=== PATIENT | female | born 1945 | race Caucasian/White ===

== ENCOUNTER 2016-12-02 12:54 | Observation (INO) | payer MEDICARE ==
[2016-12-02] MEDS ORDERED: Nitrostat 0.4 MG (ED) SL ONE ×2 (13:13→13:15)
[2016-12-02] MEDS ORDERED: BABY ASPIRIN 81 MG CHEW PO ONE (13:13)
[2016-12-02] MEDS ORDERED: BABY ASPIRIN 81 MG CHEW ONE (13:15)
--- NOTE | 2016-12-02 13:15 | ERPHSYRPT ---
- History of Present Illness Time Seen by Provider: 12/02/16 12:59 Historian: patient, family Exam Limitations: no limitations Physician History: Awakened with substernal CP, heaviness, burning, localized pain at 1A. States has bile taste with vomiting episodes X 3 along with epigastric discomfort. Patient also with cough, dizziness and headache. Patient denies any palpitation or any recent URI symptoms. Patient states that initial chest discomfort was a 7 out of 10 and is a 5 out of 10 presently. Patient complains of extreme weakness and being tired yesterday. Patient did stay up from 1 AM total 7 AM, before sleeping for approximately . Patient is also states that she 's previous indigestion along with cardiac workup 10-12 years ago that was normal. Timing/Duration: hour(s) (12), constant Activities at Onset: rest Quality: burning, pressure Location: substernal Chest Pain Radiation: no radiation Severity of Pain-Max: moderate Severity of Pain-Current: mild Modifying Factors: Improves With: antacids (improve) Associated Symptoms: nausea, vomiting, heartburn, shortness of breath, No palpitations Nitro Today/Relief: no nitro taken today Aspirin Treatment Today: no aspirin today Allergies/Adverse Reactions: No Known Drug Allergies Allergy (Unverified 01/10/14 14:27) Home Medications: Alprazolam 0.5 mg [xanAX 0.5 MG] 0.5 mg PO BIDPRN PRN 01/10/14 [History] Amlodipine Besylate 10 mg [Norvasc 10 MG] 10 mg PO DAILY 01/10/14 [History] Metoprolol Succinate 100 mg [Toprol Xl 100 MG] 100 mg PO DAILY 01/10/14 [ History] Omeprazole 40 mg PO DAILY 01/10/14 [History] Venlafaxine HCl ER 75 mg [Effexor XR 75 MG] 75 mg PO DAILY 01/10/14 [ History] Loratadine 10 mg [Claritin 10 mg] 10 mg PO DAILY 07/16/14 [History] Aspirin 81 mg PO DAILY 12/02/16 [History] Cranberry Extract [Cranberry] 200 mg PO DAILY 12/02/16 [History] Hx Tetanus, Diphtheria Vaccination/Date Given: Yes (2001?) Hx Influenza Vaccination/Date Given: Yes (2011) Hx Pneumococcal Vaccination/Date Given: Yes (2012) - Review of Systems Constitutional: Weakness, No Fever, No Chills Eyes: No Symptoms Ears, Nose, & Throat: No Symptoms Respiratory: Cough, Dyspnea, No Stridor, No Wheezing (history of overdoses that 7 this 5 year since 5 this is 53) Cardiac: Chest Pain, No Edema, No Palpitations, No Syncope, No Orthopnea Abdominal/Gastrointestinal: Nausea, Vomiting (review), No Abdominal Pain, No Diarrhea, No Constipation, No Hematemesis, No Hematochezia Genitourinary Symptoms: No Dysuria, No Frequency, No Hematuria Musculoskeletal: Arthralgias, No Neck Pain Skin: No Symptoms, No Rash Neurological: No Dizziness, No Focal Weakness, No Sensory Changes Psychological: No Symptoms Endocrine: No Symptoms Hematologic/Lymphatic: No Symptoms Immunological/Allergic: No Symptoms All Other Systems: Reviewed and Negative - Past Medical History Pertinent Past Medical History: Yes Neurological History: No Pertinent History ENT History: Cataracts Cardiac History: Hypertension Respiratory History: No Pertinent History Endocrine Medical History: No Pertinent History Musculoskeletal History: Arthritis GI Medical History: No Pertinent History, GERD History: No Pertinent History Psycho-Social History: Anxiety, Depression, Panic Disorder Female Reproductive Disorders: No Pertinent History Other Medical History: C-Diff - Past Surgical History Past Surgical History: Yes Neuro Surgical History: No Pertinent History Cardiac: No Pertinent History Respiratory: No Pertinent History Gastrointestinal: No Pertinent History Genitourinary: No Pertinent History Musculoskeletal: Orthopedic Surgery Female Surgical History: Section, Hysterectomy Other Surgical History: cataract surgery. knee replacement. back surgery; rotator cuff - Social History Smoking Status: Former smoker Exposure to second hand smoke: No Drug Use: none Patient Lives Alone: Yes - Female History Hx Now: No - Nursing Vital Signs Temperature: 98.5 F Temperature Source: Oral Pulse Rate: 72 Respiratory Rate: 18 Blood Pressure: 158/89 Pain Intensity: 7 - Physical Exam General Appearance: mild distress Eye Exam: PERRL/EOMI, eyes nml inspection Ears, Nose, Throat Exam: normal ENT inspection, moist mucous membranes Neck Exam: normal inspection, non-tender, supple, full range of motion Respiratory Exam: normal breath sounds, lungs clear, No respiratory distress Cardiovascular Exam: regular rate/rhythm, normal heart sounds Gastrointestinal/Abdomen Exam: soft, tenderness (mild to epigastric area), No mass, No rebound, No hernia Pelvic Exam: not done Back Exam: normal inspection, No CVA tenderness, No vertebral tenderness Extremity Exam: normal inspection, normal range of motion, No parasthesia, No pedal edema, No swelling Neurologic Exam: alert, oriented x 3, cooperative, normal mood/affect, sensation nml, No motor deficits Skin Exam: normal color, warm, dry SpO2: 92 Oxygen Delivery: Room Air - Course Nursing assessment & vital signs reviewed: Yes EKG Interpreted by Me: RATE (70), Sinus Rhythm, NORMAL AXIS, NORMAL INTERVALS, NORMAL QRS Ordered Tests: Active Orders 24 hr Category Date Time Status Power Washer STAT Care 12/02/16 13:06 Active Power Washer STAT Care 12/02/16 13:16 Active EKG-ER Only STAT Care 12/02/16 12:59 Active EKG-ER Only STAT Care 12/02/16 13:16 Active IV Insertion STAT Care 12/02/16 12:59 Active IV Insertion STAT Care 12/02/16 13:16 Active Oxygen-ED Only NASAL CANNULA 2 lpm Care 12/02/16 13:04 Active CHEST 1 VIEW (PORTABLE) Stat Exams 12/02/16 13:16 Taken BMP Stat Lab 12/02/16 13:00 Completed CBC W DIFF Stat Lab 12/02/16 13:00 Completed TROPONIN Q3H Lab 12/02/16 13:00 Completed TROPONIN Q3H Lab 12/02/16 16:30 Ordered TROPONIN Q3H Lab 12/02/16 19:30 Ordered TROPONIN Q3H Lab 12/02/16 22:30 Ordered TROPONIN Q3H Lab 12/03/16 01:30 Ordered Medication Summary Discontinued Medications Generic Name Dose Route Start Last Admin Trade Name Freq PRN Reason Stop Dose Admin Aspirin 324 mg 12/02/16 13:13 12/02/16 13:26 Baby Aspirin 81 Mg Chew PO 12/02/16 13:14 324 mg STAT ONE Administration Aspirin Confirm 12/02/16 13:15 Baby Aspirin 81 Mg Chew Administered 12/02/16 13:16 Dose 324 mg .ROUTE .STK-MED ONE Famotidine 20 mg 12/02/16 13:57 12/02/16 14:06 Pepcid 20 Mg Vial IV 12/02/16 13:58 20 mg STAT ONE Administration Famotidine Confirm 12/02/16 13:59 Pepcid 20 Mg Vial Administered 12/02/16 14:00 Dose 20 mg IV .STK-MED ONE Nitroglycerin 0.4 mg 12/02/16 13:13 12/02/16 13:26 Nitrostat 0.4 Mg (Ed) SL 12/02/16 13:14 0.4 mg STAT ONE Administration Nitroglycerin Confirm 12/02/16 13:15 Nitrostat 0.4 Mg (Ed) Administered 12/02/16 13:16 Dose 0.4 mg SL .STK-MED ONE Lab/Rad Data: Laboratory Result Diagrams 12/02/16 13:00 12/02/16 13:00 Laboratory Results 12/02/16 12/02/16 12/02/16 Range/Units 13:00 13:00 13:00 WBC 11.4 H (4.0-10.5) K/mm3 RBC 4.17 (4.1-5.4) M/mm3 Hgb 11.9 L (12.0-16.0) gm/dl Hct 36.2 (35-47) % MCV 86.8 (78-100) fl MCH 28.5 (26-32) pg MCHC 32.9 (32-36) g/dl RDW 14.7 H (11.5-14.0) % Plt Count 287 (150-450) K/mm3 MPV 10.4 H (6-9.5) fl Gran % 81.0 H (36.0-66.0) % Lymphocytes % 11.4 L (24.0-44.0) % Monocytes % 6.1 (0.0-12.0) % Eosinophils % 1.4 (0.00-5.0) % Basophils % 0.1 (0.0-0.4) % Basophils # 0.01 (0-0.4) Sodium 134 L (136-145) mEq/L Potassium 3.9 (3.5-5.1) mEq/L Chloride 96 L (98-107) mEq/L Carbon Dioxide 25.1 (21-32) mEq/L Anion Gap 16.7 H (5-15) MEQ/L BUN 16 (9-20) mg/dL Creatinine 1.09 (0.55-1.30) mg/dl Estimated GFR 53 ML/MIN Glucose 142 H (70-110) MG/DL Calcium 9.1 (8.5-10.1) mg/dL Troponin I < 0.017 (0.000-0.056) ng/ml - Progress Progress: improved Air Movement: good Progress Note: 12/02/16 14:58 patient feels much better after aspirin, nitroglycerin and Pepcid. Patient hemodynamically stable throughout ED stay. Dr. Oconnor was notified and agrees to admit patient for further evaluation. Discussed with : Melvin Will see patient in: hospital (observation) Counseled pt/family regarding: lab results, diagnosis (Y), rad results - Departure Time of Disposition: 15:00 Departure Disposition: Observation Clinical Impression: Chest pain Condition: Stable Critical Care Time: No
[2016-12-02 13:28] LABS: BASOPHIL % 0.1 % (0.0-0.4); Eosinophil % 1.4 % (0.00-5.0); Lymphocytes % 11.4 % (24.0-44.0); Mean Cell Volume 86.8 fl (78-100); Mean Corpuscular Hemoglobin 28.5 pg (26-32); Mean Platelet Volume 10.4 fl (6-9.5); Monocytes % 6.1 % (0.0-12.0); Platelet Count 287 K/mm3 (150-450); Red Blood Count 4.17 M/mm3 (4.1-5.4); Red Cell Distribution Width 14.7 % (11.5-14.0); White Blood Count 11.4 K/mm3 (4.0-10.5)
[2016-12-02 13:45] LABS: ANION GAP 16.7 MEQ/L (5-15); Carbon Dioxide 25.1 mEq/L (21-32); Potassium 3.9 mEq/L (3.5-5.1)
[2016-12-02] MEDS ORDERED: Pepcid 20 MG VIAL IV ONE ×2 (13:57→13:59)
[2016-12-02] MEDS ORDERED: MILK OF MAGNESIA 30 ML PO PRN (15:26)
[2016-12-02] MEDS ORDERED: TYLENOL 325 MG PO PRN (15:26)
[2016-12-02] MEDS ORDERED: MAALOX ES 30 ML UNIT DOSE PO PRN (15:26)
[2016-12-02] MEDS ORDERED: Senokot-S Tablet PO PRN (15:26)
[2016-12-02] MEDS ORDERED: Sodium Chloride 0.9% 500 ML 500 ML IV SCH (15:26)
[2016-12-02] MEDS ORDERED: Zofran 4 MG/2 ML VIAL IV PRN (15:26)
[2016-12-02] MEDS: Sodium Chloride 0.9% 1000 ML 1,000 ML IV SCH (15:54)
--- NOTE | 2016-12-02 18:20 | XRAY ---
Indication: Chest pain. Comparison: April 08, 2015 Portable chest less inflated today again with calcified granulomas. No focal infiltrate, consolidation, or large effusion. Heart is not enlarged for AP portable technique. Descending aorta remains tortuous. Bony thorax intact again with mild osteopenia and degenerative changes. Impression: Nonacute underinflated chest with chronic features. Comment: Preliminary interpretation was made by [facility]. No discrepancy.
--- NOTE | 2016-12-02 20:52 | PCM.HP ---
History of Present Illness - Chief Complaint Chief Complaint: chest pain Date: 12/02/16 History of Present Illness: is a 71 year old female. Who was feeling a little tired yesterday but otherwise herself. She went to bed and woke up in the early am hours vomiting nonbloody emesis. She had repeated episodes of this and developed substernal chest pain and burning like someone pouring hot water down her chest pain. No associated shortness of breath but then started having copious secretions and coughing with these and felt congested with this. This is improving now that she has stopped vomiting she still has the burning pressure in her chest in the substernal area as well as some sharp pains no sob. SHe ate fish last night that she is concerned may have went bad she bought them at the local grocery store and prepared them herself. She has no diarrhea. SHe has history of ibs with constipation and diarrhea chronically and has had colonoscopies. She has aslo hx of heartburn which she takes Prilosec for. - Review of Systems Constitutional: Fatigue, No Fever, No Chills Eyes: No Eye Pain, No Eye Redness, No Itchy Ears, Nose, & Throat: Painful Swallowing, No Ear Pain, No Ear Discharge, No Hearing Changes, No Nose Congestion, No Mouth Swelling Respiratory: Cough, No Orthopnea, No Short Of Breath Cardiac: Chest Pain, No Edema, No Palpitations, No Syncope, No Orthopnea Abdominal/Gastrointestinal: Abdominal Pain, Nausea, Vomiting, No Diarrhea, No Constipation, No Hematemesis, No Hematochezia, No Melena Genitourinary Symptoms: No Dysuria, No Frequency, No Hematuria Musculoskeletal: No Arthralgias, No Back Pain, No Neck Pain, No Joint Redness, No Joint Pain Skin: No Cellulitis, No Decubiti Neurological: Headache, No Dizziness, No Focal Weakness, No Gait Changes Hematologic/Lymphatic: No Blood Clots, No Easy Bleeding, No Easy Bruising Medications & Allergies Home Medications: Home Medication List Alprazolam 0.5 mg [xanAX 0.5 MG] 0.5 mg PO BID 01/10/14 [History Confirmed 12/02/16] Amlodipine Besylate 10 mg [Norvasc 10 MG] 10 mg PO DAILY 01/10/14 [History Confirmed 12/02/16] Metoprolol Succinate 100 mg [Toprol Xl 100 MG] 100 mg PO DAILY 01/10/14 [ History Confirmed 12/02/16] Omeprazole 40 mg PO DAILY 01/10/14 [History Confirmed 12/02/16] Venlafaxine HCl ER 75 mg [Effexor XR 75 MG] 75 mg PO DAILY 01/10/14 [ History Confirmed 12/02/16] Loratadine 10 mg [Claritin 10 mg] 10 mg PO DAILY 07/16/14 [History Confirmed 12/02/16] Aspirin 81 mg PO DAILY 12/02/16 [History Confirmed 12/02/16] Cranberry Extract [Cranberry] 200 mg PO DAILY 12/02/16 [History Confirmed ] Allergies/Adverse Reactions: Allergies Allergy/AdvReac Type Severity Reaction Status Date / Time No Known Drug Allergies Allergy Unverified 01/10/14 14:27 - Past Medical History Past Medical History: Yes Neurological History: No Pertinent History ENT History: Cataracts Cardiac History: Hypertension Respiratory History: No Pertinent History Endocrine Medical History: No Pertinent History Musculoskelatal History: Arthritis GI Medical History: No Pertinent History, GERD History: No Pertinent History Pyscho-Social History: Anxiety, Depression, Panic Disorder Reproductive Disorders: No Pertinent History Comment: C-Diff - Female History Are you now?: No - Past Surgical History Past Surgical History: Yes Neuro Surgical History: No Pertinent History Cardiac History: No Pertinent History Respiratory Surgery: No Pertinent History GI Surgical History: No Pertinent History Genitourinary Surgical Hx: No Pertinent History Musculskeletal Surgical Hx: Orthopedic Surgery Female Surgical History: Section, Hysterectomy Other Surgical History: cataract surgery. knee replacement. back surgery; rotator cuff - Social History Smoking Status: Former smoker Exposure to second hand smoke: No Alcohol: None Drug Use: none - Physical Exam Vital Signs: Vital Signs - 24 hr Temp Pulse Pulse Resp BP BP Pulse Ox 12/02/16 20:00 92 L 12/02/16 19:48 98.6 F 75 18 130/72 92 L 12/02/16 15:31 98.1 F 72 18 179/86 94 L 12/02/16 15:00 98.5 F 72 18 158/89 92 L 12/02/16 14:47 70 18 138/70 12/02/16 13:38 72 18 132/73 95 12/02/16 13:24 68 12/02/16 13:12 68 18 140/64 95 12/02/16 13:01 98.5 F 72 18 158/89 92 L Oxygen-Last 24 hours O2 Percentage 2 Liters = 28% O2 Percentage 2 Liters = 28% O2 Percentage 2 Liters = 28% O2 Percentage 2 Liters = 28% General Appearance: no apparent distress Neurologic Exam: alert, oriented x 3, cooperative Eye Exam: PERRL/EOMI, No scleral icterus, No pale conjunctivae Ears, Nose, Throat Exam: dry mucous membranes Neck Exam: normal inspection, non-tender, supple Respiratory Exam: normal breath sounds, chest tenderness (left parasternal most severe reproducing the pain), lungs clear, No respiratory distress, No diminished breath sounds, No crackles/rales Cardiovascular Exam: regular rate/rhythm, normal heart sounds, No murmur Gastrointestinal/Abdomen Exam: soft, normal bowel sounds, tenderness (epigastric ) Extremity Exam: normal inspection, No calf tenderness, No pedal edema Skin Exam: normal color, warm, dry, No rash Results - Labs Lab/Micro Results: Lab Results-Last 24 Hours 12/02/16 12/02/16 Range/Units 16:46 19:38 Troponin I < 0.017 < 0.017 (0.000-0.056) ng/ml - Other Procedures and Tests Respiratory Therapy 12/02/16 21:00 EKG ONCE 12/03/16 05:00 EKG ONCE 12/04/16 05:00 EKG ONCE Assessment/Plan (1) Chest pain Current Visit: Yes Status: Acute Assessment & Plan: 7 hour after arrival troponin remains undetectable and she is still having the atypical chest pain no changes on the ekg. Pain is reproducible with palpation of chest will give dose of steroids as well as some carafate for the burning with swallowing already received iv pepcid will give dose of protonix. She is now tolerating po. Appears noncardiac chest pain likely secondary to gastritis possibly viral vs food born. Continue monitor overnight fluids, Check lipase and hepatic functions as well. Code(s): R07.9 - CHEST PAIN, UNSPECIFIED (2) GERD (gastroesophageal reflux disease) Current Visit: Yes Status: Chronic Code(s): K21.9 - GASTRO-ESOPHAGEAL REFLUX DISEASE WITHOUT ESOPHAGITIS (3) Essential hypertension Current Visit: Yes Status: Chronic Code(s): I10 - ESSENTIAL (PRIMARY) HYPERTENSION (4) Anxiety Current Visit: Yes Status: Chronic Code(s): F41.9 - ANXIETY DISORDER, UNSPECIFIED (5) IBS (irritable bowel syndrome) Current Visit: Yes Status: Chronic
[2016-12-02] MEDS ORDERED: PROTONIX 40 MG IV IV ONE (20:54)
[2016-12-02] MEDS ORDERED: NORCO 5/325 MG PO PRN (20:55)
[2016-12-02] MEDS ORDERED: solu-MEDROL 125 MG IV ONE (20:56)
[2016-12-02] MEDS ORDERED: Phenergan 25 MG INJ IV PRN (20:59)
[2016-12-02] MEDS: xanAX 0.5 MG PO SCH (21:29)
[2016-12-02] MEDS: Carafate SUSPENSION 1000 MG/10 ML PO SCH (21:41)
[2016-12-03 05:34] LABS: Mean Cell Volume 87.2 fl (78-100); Mean Corpuscular Hemoglobin 27.9 pg (26-32); Mean Platelet Volume 10.1 fl (6-9.5); Platelet Count 250 K/mm3 (150-450); Red Cell Distribution Width 14.7 % (11.5-14.0)
[2016-12-03 05:55] LABS: ALBUMIN 3.5 g/dL (3.4-5.0); ALKALINE PHOSPHATASE 93 U/L (46-116); ANION GAP 13.6 MEQ/L (5-15); BILIRUBIN,TOTAL 0.2 mg/dL (0.2-1.0); BLOOD UREA NITROGEN 15 mg/dL (9-20); CHLORIDE 105 mEq/L (98-107); Carbon Dioxide 27.7 mEq/L (21-32); Cholesterol 244 mg/dL (100-200); Glucose 157 MG/DL (70-110); LDL, DIRECT 166 mg/dL (5-99); LIPASE 107 U/L (73-393); Potassium 4.1 mEq/L (3.5-5.1); SGOT/AST 14 U/L (15-37); SGPT/ALT 16 U/L (12-78); SODIUM 142 mEq/L (136-145); TRIGLYCERIDE 80 mg/dL (30-200); Total Protein 6.9 gm/dL (6.4-8.2)
[2016-12-03] MEDS: Sodium Chloride 0.9% 1000 ML 1,000 ML IV SCH (06:01)
[2016-12-03] MEDS: Carafate SUSPENSION 1000 MG/10 ML PO SCH (07:44)
[2016-12-03 07:47] VITALS: BP 128/69; PULSE 89; O2SAT 91
[2016-12-03] MEDS: xanAX 0.5 MG PO SCH (09:18)
--- NOTE | 2016-12-03 09:18 | PCM.DS ---
Discharge Summary Date of Admission: 12/02/16 15:15 Date of Discharge: 12/03/16 Admitting Physician: JAMIE SOLER Primary Care Provider: QUIQUE FOSS Allergies Allergies No Known Drug Allergies Allergy (Unverified 01/10/14 14:27) Hospital Summary - Hospital Course Hospital Course: she awoke the day of admission with vomiting and then developed substernal pain and burning with nausea. She subsequently developed coughing and mucous drainage as well. No fevers. She was seen in ED with the chest pain and placed in observation for chest pain rule out. Her vomiting was treated and improved. Her chest pain was reproducible with palpation of the left costal junction. She had epigastric burning treated with ppi, h2 jose guadalupe and carafate. There was no bleeding or melena. Her troponins remained negative and normal EKG. She did develop some coughing but no shortness of breath. She was feeling a little better now with cough and stated it felt like she was getting a cold now. She was given a dose of steroid with some mild bilateral expiratory wheezing. Her wbc actually dropped with this consistent with viral infection. She was discharged with chest pain precautions and presumed symptoms due to viral illness. - Vitals & Intake/Output Vital Signs: Vital Signs Temperature 97.9 F 12/03/16 07:46 Pulse Rate 89 12/03/16 07:46 Respiratory Rate 18 12/03/16 07:46 Blood Pressure 128/69 12/03/16 07:46 O2 Sat by Pulse Oximetry 91 L 12/03/16 07:46 Oxygen-Last Documented O2 Percentage 2 Liters = 28% Intake & Output: Intake & Output 11/30/16 12/01/16 12/02/16 12/03/16 11:59 11:59 11:59 11:59 Intake Total 2371 Output Total 200 Balance 2171 Weight 76.067 kg - Lab Result Diagrams: 12/03/16 05:10 12/03/16 05:10 Lab Results-Last 24 Hrs: Lab Results-Last 24 Hours 12/02/16 12/02/16 12/03/16 Range/Units 16:46 19:38 05:10 WBC 4.0 (4.0-10.5) K/mm3 RBC 4.30 (4.1-5.4) M/mm3 Hgb 12.0 (12.0-16.0) gm/dl Hct 37.5 (35-47) % MCV 87.2 (78-100) fl MCH 27.9 (26-32) pg MCHC 32.0 (32-36) g/dl RDW 14.7 H (11.5-14.0) % Plt Count 250 (150-450) K/mm3 MPV 10.1 H (6-9.5) fl Sodium (136-145) mEq/L Potassium (3.5-5.1) mEq/L Chloride (98-107) mEq/L Carbon Dioxide (21-32) mEq/L Anion Gap (5-15) MEQ/L BUN (9-20) mg/dL Creatinine (0.55-1.30) mg/dl Estimated GFR ML/MIN Glucose (70-110) MG/DL Calcium (8.5-10.1) mg/dL Total Bilirubin (0.2-1.0) mg/dL AST (15-37) U/L ALT (12-78) U/L Alkaline Phosphatase (46-116) U/L Troponin I < 0.017 < 0.017 (0.000-0.056) ng/ml Serum Total Protein (6.4-8.2) gm/dL Albumin (3.4-5.0) g/dL Triglycerides (30-200) mg/dL Cholesterol (100-200) mg/dL LDL Cholesterol (5-99) mg/dL HDL Cholesterol (35-60) mg/dL Heart Disease Risk Ratio Lipase (73-393) U/L 12/03/16 Range/Units 05:10 WBC (4.0-10.5) K/mm3 RBC (4.1-5.4) M/mm3 Hgb (12.0-16.0) gm/dl Hct (35-47) % MCV (78-100) fl MCH (26-32) pg MCHC (32-36) g/dl RDW (11.5-14.0) % Plt Count (150-450) K/mm3 MPV (6-9.5) fl Sodium 142 (136-145) mEq/L Potassium 4.1 (3.5-5.1) mEq/L Chloride 105 (98-107) mEq/L Carbon Dioxide 27.7 (21-32) mEq/L Anion Gap 13.6 (5-15) MEQ/L BUN 15 (9-20) mg/dL Creatinine 0.92 (0.55-1.30) mg/dl Estimated GFR > 60 ML/MIN Glucose 157 H (70-110) MG/DL Calcium 8.8 (8.5-10.1) mg/dL Total Bilirubin 0.2 (0.2-1.0) mg/dL AST 14 L (15-37) U/L ALT 16 (12-78) U/L Alkaline Phosphatase 93 (46-116) U/L Troponin I (0.000-0.056) ng/ml Serum Total Protein 6.9 (6.4-8.2) gm/dL Albumin 3.5 (3.4-5.0) g/dL Triglycerides 80 (30-200) mg/dL Cholesterol 244 H (100-200) mg/dL LDL Cholesterol 166 H (5-99) mg/dL HDL Cholesterol 63 H (35-60) mg/dL Heart Disease Risk Ratio 3.9 Lipase 107 (73-393) U/L - Procedures and Test Procedures and Tests throughout Hospitalization: Therapy Orders & Screens 12/02/16 21:00 EKG ONCE Comment: 12/02/16 22:16 Oxygen NASAL CANNULA 2 lpm Comment: PER CHEST PAIN PATHWAY Diagnosis: chest pain 12/03/16 05:00 EKG ONCE Comment: 12/04/16 05:00 EKG ONCE Comment: Discharge Exam General Appearance: no apparent distress Neurologic Exam: alert, oriented x 3, cooperative Skin Exam: warm, dry Eye Exam: PERRL, No scleral icterus, No pale conjunctivae Ears, Nose, Throat Exam: moist mucous membranes Neck Exam: normal inspection, non-tender, supple Respiratory Exam: wheezing (mild diffuse expiratory), No crackles/rales Cardiovascular Exam: regular rate/rhythm, normal heart sounds, normal peripheral pulses, No murmur, No edema Gastrointestinal/Abdomen Exam: soft, normal bowel sounds, No tenderness, No distention, No mass, No guarding Extremity Exam: No calf tenderness, No sandra's sign, No pedal edema Final Diagnosis/Problem List - Final Discharge Diagnosis/Problem (1) Chest pain Status: Acute (2) GERD (gastroesophageal reflux disease) Status: Chronic (3) Essential hypertension Status: Chronic (4) Anxiety Status: Chronic (5) IBS (irritable bowel syndrome) Status: Chronic (6) Bronchitis Status: Acute (7) Costochondritis Status: Acute - Discharge Disposition: Home, Self-Care Condition: Stable Prescriptions: Prednisone 10 mg [Deltasone 10 mg] 10 mg PO DAILY #22 tablet Medications: Home Medications Alprazolam 0.5 mg [xanAX 0.5 MG] 0.5 mg PO BID 01/10/14 [Confirmed ] Amlodipine Besylate 10 mg [Norvasc 10 MG] 10 mg PO DAILY 01/10/14 [Confirmed ] Metoprolol Succinate 100 mg [Toprol Xl 100 MG] 100 mg PO DAILY 01/10/14 [ Confirmed 12/02/16] Omeprazole 40 mg PO DAILY 01/10/14 [Confirmed 12/02/16] Venlafaxine HCl ER 75 mg [Effexor XR 75 MG] 75 mg PO DAILY 01/10/14 [ Confirmed 12/02/16] Loratadine 10 mg [Claritin 10 mg] 10 mg PO DAILY 07/16/14 [Confirmed 12/02] Aspirin 81 mg PO DAILY 12/02/16 [Confirmed 12/02/16] Cranberry Extract [Cranberry] 200 mg PO DAILY 12/02/16 [Confirmed 12/02/16] Prednisone 10 mg [Deltasone 10 mg] 10 mg PO DAILY #22 tablet 12/03/16 Active Inpatient Medications Acetaminophen (Tylenol 325 Mg) 650 mg PO Q4H PRN PRN PRN Reason: PAIN AND/OR FEVER Stop: 01/01/17 15:25 Last Admin: 12/02/16 15:54 Dose: 650 mg Acetaminophen/Hydrocodone Bitart (Orange 5/325 Mg) 1 tab PO QID PRN PRN PRN Reason: PAIN Stop: 12/07/16 20:54 Al Hydrox/Mg Hydrox/Simethicone (Maalox Es 30 Ml Unit Dose) 30 ml PO Q4H PRN PRN PRN Reason: INDIGESTION Stop: 01/01/17 15:25 Alprazolam (Xanax 0.5 Mg) 0.5 mg PO BID LENNIE Stop: 01/01/17 21:59 Last Admin: 12/02/16 21:29 Dose: 0.5 mg Amlodipine Besylate (Norvasc 5 Mg) 10 mg PO DAILY [facility] Stop: 01/02/17 09:59 Aspirin (Ecotrin 81 Mg) 81 mg PO DAILY [facility] Stop: 01/02/17 09:59 Sodium Chloride (Sodium Chloride 0.9% 1000 Ml) 1,000 mls @ 65 mls/hr IV .[id number] [facility] Stop: 01/01/17 15:44 Last Admin: 12/03/16 06:01 Dose: 65 mls/hr Loratadine (Claritin 10 Mg) 10 mg PO DAILY [facility] Stop: 01/02/17 09:59 Magnesium Hydroxide (Milk Of Magnesia 30 Ml) 30 - 60 ml PO QDP PRN PRN Reason: CONSTIPATION Stop: 01/01/17 15:25 Metoprolol Succinate (Toprol Xl 100 Mg) 100 mg PO DAILY [facility] Stop: 01/02/17 09:59 Pantoprazole Sodium (Protonix 40mg Tablet) 40 mg PO DAILY [facility] Stop: 01/02/17 09:59 Promethazine HCl (Phenergan 25 Mg Inj) 12.5 mg IV Q4H PRN PRN PRN Reason: NAUSEA/VOMITING Stop: 01/01/17 20:58 Senna/Docusate Sodium (Senokot-S Tablet) 2 udtab PO BID PRN PRN PRN Reason: CONSTIPATION Stop: 01/01/17 15:25 Sucralfate (Carafate Suspension 1000 Mg/10 Ml) 1,000 mg PO ACHS [facility] Stop: 01/01/17 21:59 Last Admin: 12/03/16 07:44 Dose: 1,000 mg Venlafaxine HCl (Effexor Xr 75 Mg) 75 mg PO DAILY [facility] Stop: 01/02/17 09:59 Instructions: Gastroesophageal Reflux Disease (GERD), Atypical Chest Pain, GERD Diet Follow up with: QUIQUE FOSS [Primary Care Provider] - Call for Appointment Forms: Discharge Instructions, Patient Portal Information
--- NOTE | 2016-12-03 09:18 | PCM.DCORD ---
- Discharge Discharge Date: 12/03/16 Disposition: Home, Self-Care Condition: Stable Prescriptions: Prednisone 10 mg [Deltasone 10 mg] 10 mg PO DAILY #22 tablet Medications: Home Medications Alprazolam 0.5 mg [xanAX 0.5 MG] 0.5 mg PO BID 01/10/14 [Confirmed ] Amlodipine Besylate 10 mg [Norvasc 10 MG] 10 mg PO DAILY 01/10/14 [Confirmed ] Metoprolol Succinate 100 mg [Toprol Xl 100 MG] 100 mg PO DAILY 01/10/14 [ Confirmed 12/02/16] Omeprazole 40 mg PO DAILY 01/10/14 [Confirmed 12/02/16] Venlafaxine HCl ER 75 mg [Effexor XR 75 MG] 75 mg PO DAILY 01/10/14 [ Confirmed 12/02/16] Loratadine 10 mg [Claritin 10 mg] 10 mg PO DAILY 07/16/14 [Confirmed 12/02] Aspirin 81 mg PO DAILY 12/02/16 [Confirmed 12/02/16] Cranberry Extract [Cranberry] 200 mg PO DAILY 12/02/16 [Confirmed 12/02/16] Active Inpatient Medications Acetaminophen (Tylenol 325 Mg) 650 mg PO Q4H PRN PRN PRN Reason: PAIN AND/OR FEVER Stop: 01/01/17 15:25 Last Admin: 12/02/16 15:54 Dose: 650 mg Acetaminophen/Hydrocodone Bitart (Jackson 5/325 Mg) 1 tab PO QID PRN PRN PRN Reason: PAIN Stop: 12/07/16 20:54 Al Hydrox/Mg Hydrox/Simethicone (Maalox Es 30 Ml Unit Dose) 30 ml PO Q4H PRN PRN PRN Reason: INDIGESTION Stop: 01/01/17 15:25 Alprazolam (Xanax 0.5 Mg) 0.5 mg PO BID LENNIE Stop: 01/01/17 21:59 Last Admin: 12/02/16 21:29 Dose: 0.5 mg Amlodipine Besylate (Norvasc 5 Mg) 10 mg PO DAILY LENNIE Stop: 01/02/17 09:59 Aspirin (Ecotrin 81 Mg) 81 mg PO DAILY [facility] Stop: 01/02/17 09:59 Sodium Chloride (Sodium Chloride 0.9% 1000 Ml) 1,000 mls @ 65 mls/hr IV .[id number] [facility] Stop: 01/01/17 15:44 Last Admin: 12/03/16 06:01 Dose: 65 mls/hr Loratadine (Claritin 10 Mg) 10 mg PO DAILY [facility] Stop: 01/02/17 09:59 Magnesium Hydroxide (Milk Of Magnesia 30 Ml) 30 - 60 ml PO QDP PRN PRN Reason: CONSTIPATION Stop: 01/01/17 15:25 Metoprolol Succinate (Toprol Xl 100 Mg) 100 mg PO DAILY [facility] Stop: 01/02/17 09:59 Pantoprazole Sodium (Protonix 40mg Tablet) 40 mg PO DAILY [facility] Stop: 01/02/17 09:59 Promethazine HCl (Phenergan 25 Mg Inj) 12.5 mg IV Q4H PRN PRN PRN Reason: NAUSEA/VOMITING Stop: 01/01/17 20:58 Senna/Docusate Sodium (Senokot-S Tablet) 2 udtab PO BID PRN PRN PRN Reason: CONSTIPATION Stop: 01/01/17 15:25 Sucralfate (Carafate Suspension 1000 Mg/10 Ml) 1,000 mg PO ACHS [facility] Stop: 01/01/17 21:59 Last Admin: 12/03/16 07:44 Dose: 1,000 mg Venlafaxine HCl (Effexor Xr 75 Mg) 75 mg PO DAILY [facility] Stop: 01/02/17 09:59 Follow up with: QUIQUE FOSS [Primary Care Provider] - Forms: Patient Portal Information
[2016-12-03] MEDS ORDERED: NON-FORMULARY ITEM (Aspirin [Aspirin] 81 MG) PO SCH (10:00)
[2016-12-03] MEDS ORDERED: Protonix 40MG Tablet PO SCH (10:00)
[2016-12-03] MEDS ORDERED: Effexor XR 75 MG PO SCH (10:00)
[2016-12-03] MEDS ORDERED: NORVASC 5 MG PO SCH (10:00)
[2016-12-03] MEDS ORDERED: NON-FORMULARY ITEM (Amlodipine Besylate 10 Mg [Norvasc 10 Mg] 10 MG) PO SCH (10:00)
[2016-12-03] MEDS ORDERED: CLARITIN 10 MG PO SCH (10:00)
[2016-12-03] MEDS ORDERED: NON-FORMULARY ITEM (Omeprazole [Omeprazole] 40 MG) PO SCH (10:00)
[2016-12-03] MEDS ORDERED: ECOTRIN 81 MG PO SCH (10:00)
[2016-12-03] MEDS ORDERED: Ecotrin 325 MG PO SCH (10:00)
[2016-12-03] MEDS ORDERED: Toprol Xl 100 MG PO SCH (10:00)
== END 2016-12-03 11:00 | disposition home or self-care (01) ==
LOC: ED 12:54 → MED SURG 15:15
PROVIDERS: ADMIT Family Medicine; ATTEND Family Medicine
DX: R07.89 Other chest pain (principal); K21.9 Gastro-esophageal reflux disease without esophagitis; I10 Essential (primary) hypertension; F41.9 Anxiety disorder, unspecified; K58.9 Irritable bowel syndrome, unspecified; J40 Bronchitis, not specified as acute or chronic; M94.0 Chondrocostal junction syndrome [Tietze]; M19.90 Unspecified osteoarthritis, unspecified site; F41.8 Other specified anxiety disorders; Z79.899 Other long term (current) drug therapy
CPT/HCPCS: 36000; 36415; 71010; 80048; 80053; 80061; 83690; 83721; 84484; 85025; 85027; 87400; 93005; 93041; 93268; 94760; 96374; 99285; G0378; J2930

== ENCOUNTER 2017-03-20 12:16 | Inpatient (IN) | payer MEDICARE ==
[2017-03-20 13:02] LABS: Mean Corpuscular Hemoglobin 28.4 pg (26-32); Mean Platelet Volume 9.2 fl (6-9.5); Platelet Count 295 K/mm3 (150-450); Red Blood Count 4.23 M/mm3 (4.1-5.4); Red Cell Distribution Width 15.5 % (11.5-14.0); White Blood Count 8.1 K/mm3 (4.0-10.5)
[2017-03-20] MEDS ORDERED: Sodium Chloride 0.9% 10 ML FLUSH Syringe IV PRN (13:09)
[2017-03-20 13:29] LABS: ALBUMIN 3.4 g/dL (3.4-5.0); ANION GAP 13.6 MEQ/L (5-15); BILIRUBIN,TOTAL 0.3 mg/dL (0.2-1.0); Carbon Dioxide 26.8 mEq/L (21-32); Potassium 3.9 mEq/L (3.5-5.1); Total Protein 7.1 gm/dL (6.4-8.2)
--- NOTE | 2017-03-20 13:37 | XRAY ---
Indication: Pneumonia. Comparison: March 19, 2017. PA/lateral chest unchanged again with subtle right middle lobe infiltrate/atelectasis, calcified granulomas, and right hemidiaphragm focal eventration. Heart is not enlarged. No new cardiopulmonary abnormalities.
[2017-03-20 13:39] LABS: ANISOCYTOSIS 1+; Eosinophil 2 % (0.00-3.0); Platelet Estimate NORMAL (NORMAL); Total Cells Counted 100
[2017-03-20 13:40] LABS: Polychromasia 1+
[2017-03-20] MEDS: Zithromax 500 MG/ 250 ML NaCl Premix 250 ML IV SCH (13:46)
[2017-03-20] MEDS: solu-MEDROL 125 MG IV SCH ×2 (13:52→21:45)
[2017-03-20 15:41] LABS: Collection Type CLEAN CATCH
[2017-03-20 15:42] LABS: ADD URINE CULTURE? NO (NO); COMPLETE URINE MICROSCOPIC? NO
[2017-03-20] MEDS: Effexor XR 75 MG PO SCH (15:46)
[2017-03-20] MEDS: Toprol Xl 100 MG PO SCH (15:47)
[2017-03-20] MEDS: ROCEPHIN 1 Gm-D5w 50 ml Bag** 50 ML IV SCH (15:47)
--- NOTE | 2017-03-20 16:00 | PCM.HP ---
History of Present Illness - Chief Complaint Chief Complaint: PNEUMONIA History of Present Illness: is a 71 year old female c/o several months of sinus and respiratory issues. For 2 weeks she has had increased cough with some chills and sweats, SOB. She has been to the office several times; she took a course of zitrhomax without improvement. She returned to the office yesterday and was found to have pneumonia; given IM rocephin x1 . She had no improvement so spoke wiht the [employer] who briefed me on the case and the patient was admitted for pneumonia, failed outpatient therapy. - Review of Systems Constitutional: Fever, Chills Respiratory: Cough, Short Of Breath Cardiac: Other (chest tightness) Genitourinary Symptoms: Dysuria (today) Psychological: No Depression, No Suicidal Ideations All Other Systems: Reviewed and Negative Medications & Allergies Home Medications: Home Medication List Alprazolam 0.5 mg [xanAX 0.5 MG] 0.5 mg PO BID 01/10/14 [History Confirmed 03/20/17] Amlodipine Besylate 10 mg [Norvasc 10 MG] 10 mg PO DAILY 01/10/14 [History Confirmed 03/20/17] Metoprolol Succinate 100 mg [Toprol Xl 100 MG] 100 mg PO DAILY 01/10/14 [ History Confirmed 03/20/17] Omeprazole 40 mg PO DAILY 01/10/14 [History Confirmed 03/20/17] Venlafaxine HCl ER 75 mg [Effexor XR 75 MG] 75 mg PO DAILY 01/10/14 [ History Confirmed 03/20/17] Aspirin 81 mg PO DAILY 12/02/16 [History Confirmed 03/20/17] Cranberry Extract [Cranberry] 500 mg PO DAILY 12/02/16 [History Confirmed ] Fluticasone Propionate [Flonase NASAL] 1 spray NS DAILY 03/20/17 [History Confirmed 03/20/17] Allergies/Adverse Reactions: Allergies Allergy/AdvReac Type Severity Reaction Status Date / Time No Known Drug Allergies Allergy Verified 03/20/17 12:34 - Past Medical History Past Medical History: Yes Neurological History: No Pertinent History ENT History: Cataracts Cardiac History: Hypertension Respiratory History: No Pertinent History Endocrine Medical History: No Pertinent History Musculoskelatal History: Arthritis GI Medical History: No Pertinent History, GERD History: No Pertinent History Pyscho-Social History: Anxiety, Depression, Panic Disorder Reproductive Disorders: No Pertinent History Comment: C-Diff - Female History Are you now?: No - Past Surgical History Past Surgical History: Yes Neuro Surgical History: No Pertinent History Cardiac History: No Pertinent History Respiratory Surgery: No Pertinent History GI Surgical History: No Pertinent History Genitourinary Surgical Hx: No Pertinent History Musculskeletal Surgical Hx: Orthopedic Surgery Female Surgical History: Section, Hysterectomy Other Surgical History: cataract surgery. knee replacement. back surgery; rotator cuff - Social History Smoking Status: Former smoker Exposure to second hand smoke: No Alcohol: None Drug Use: none - Physical Exam Vital Signs: Vital Signs - 24 hr Temp Pulse Resp BP Pulse Ox 03/20/17 12:43 98.4 F 60 18 174/74 96 03/20/17 12:34 98.4 F 60 174/74 03/20/17 12:24 98.4 F 60 18 174/74 96 General Appearance: no apparent distress Neurologic Exam: alert, oriented x 3, cooperative Eye Exam: eyes nml inspection Neck Exam: normal inspection, non-tender, No lymphadenopathy Respiratory Exam: normal breath sounds, lungs clear, No crackles/rales, No rhonchi, No wheezing Cardiovascular Exam: regular rate/rhythm, normal heart sounds, No murmur Gastrointestinal/Abdomen Exam: soft, normal bowel sounds, No tenderness, No distention Back Exam: normal inspection, No CVA tenderness Extremity Exam: No pedal edema, No swelling Skin Exam: normal color, warm, dry Results - Labs Lab/Micro Results: Lab Results-Last 24 Hours 03/20/17 03/20/17 Range/Units 12:50 12:50 WBC 8.1 (4.0-10.5) K/mm3 RBC 4.23 (4.1-5.4) M/mm3 Hgb 12.0 (12.0-16.0) gm/dl Hct 36.8 (35-47) % MCV 87.0 (78-100) fl MCH 28.4 (26-32) pg MCHC 32.6 (32-36) g/dl RDW 15.5 H (11.5-14.0) % Plt Count 295 (150-450) K/mm3 MPV 9.2 (6-9.5) fl Segmented Neutrophils 72 H (36.0-66.0) % Lymphocytes (Manual) 22 L (24-44) % Monocytes (Manual) 4 (0.0-12.0) % Eosinophils (Manual) 2 (0.00-3.0) % Differential Comment ABNORMAL Platelet Estimate NORMAL (NORMAL) Polychromasia 1+ Anisocytosis 1+ Sodium 136 (136-145) mEq/L Potassium 3.9 (3.5-5.1) mEq/L Chloride 99 (98-107) mEq/L Carbon Dioxide 26.8 (21-32) mEq/L Anion Gap 13.6 (5-15) MEQ/L BUN 14 (9-20) mg/dL Creatinine 1.04 (0.55-1.30) mg/dl Estimated GFR 56 ML/MIN Glucose 106 (70-110) MG/DL Calcium 9.0 (8.5-10.1) mg/dL Total Bilirubin 0.3 (0.2-1.0) mg/dL AST 14 L (15-37) U/L ALT 13 (12-78) U/L Alkaline Phosphatase 80 (46-116) U/L Serum Total Protein 7.1 (6.4-8.2) gm/dL Albumin 3.4 (3.4-5.0) g/dL - Radiology Impressions Radiology Exams & Impressions: Radiology Procedures Category Date Time Status CHEST 2 VIEWS (PA AND LAT) Routine Exams 03/20/17 13:00 Completed - Other Procedures and Tests Respiratory Therapy 03/20/17 12:39 Oxygen NASAL CANNULA 2 lpm Assessment/Plan (1) Pneumonia Current Visit: No Status: Acute Qualifiers: Pneumonia type: due to unspecified organism Laterality: right Lung location: middle lobe of lung Qualified Code(s): J18.1 - Lobar pneumonia, unspecified organism Assessment & Plan: On IV rocephin and zithromax. IV solumedrol. Her exam is benign currently. I would expect her to recover over the next 2-4 days. Code(s): J18.9 - PNEUMONIA, UNSPECIFIED ORGANISM (2) Failure of outpatient treatment Current Visit: No Status: Acute Code(s): Z78.9 - OTHER SPECIFIED HEALTH STATUS (3) Essential hypertension Current Visit: No Status: Chronic Assessment & Plan: continue home meds. Code(s): I10 - ESSENTIAL (PRIMARY) HYPERTENSION
[2017-03-20] MEDS: Protonix 40MG Tablet PO SCH (17:12)
[2017-03-20] MEDS: Sodium Chloride 0.9% 10 ML FLUSH Syringe IV SCH ×2 (17:59→22:13)
[2017-03-20] MEDS: xanAX 0.5 MG PO SCH (21:45)
[2017-03-21] MEDS: Sodium Chloride 0.9% 10 ML FLUSH Syringe IV SCH ×3 (06:32→21:45)
[2017-03-21] MEDS ORDERED: TYLENOL EXTRA STRENGTH 500 MG PO PRN (09:04)
--- NOTE | 2017-03-21 09:21 | PCM.NOTE ---
Date and Time: 03/21/17919 Subjective Assessment: Pt off O2, she is still having productive cough. Still c/o head congestion and ear discomfort bilat. - Review of Systems Constitutional: No Fever Ears, Nose, & Throat: Sinus Drainage Objective Exam General Appearance: no apparent distress, obese Neurologic Exam: alert, oriented x 3, cooperative Skin Exam: normal color, warm, dry Ears, Nose, Throat Exam: TMs normal, pharynx normal (cobblestoning), moist mucous membranes Neck Exam: normal inspection Respiratory Exam: normal breath sounds, lungs clear, No crackles/rales, No rhonchi, No wheezing Cardiovascular Exam: regular rate/rhythm, normal heart sounds Gastrointestinal/Abdomen Exam: soft, No tenderness Extremity Exam: No pedal edema, No swelling OBJECTIVE DATA Vital Signs: Vital Signs - 24 hr Temp Pulse Resp BP Pulse Ox 03/21/17 08:00 97.9 F 90 18 135/66 90 L 03/21/17 07:42 93 L 03/21/17 04:00 97.9 F 85 20 154/75 91 L 03/21/17 00:00 97.9 F 74 20 121/59 97 03/20/17 22:25 86 18 96 03/20/17 20:00 97.6 F 80 20 127/67 93 L 03/20/17 18:19 58 L 16 91 L 03/20/17 16:00 18 03/20/17 15:59 98.3 F 77 18 130/72 93 L 03/20/17 12:43 98.4 F 60 18 174/74 96 03/20/17 12:34 98.4 F 60 174/74 03/20/17 12:24 98.4 F 60 18 174/74 96 Pain Assessment - Last Documented Pain Scale Used 0-10 Pain Scale Intake and Output: Intake & Output 03/18/17 03/19/17 03/20/17 03/21/17 11:59 11:59 11:59 11:59 Intake Total 1940 Output Total 800 Balance 1140 Weight 76.657 kg Lab Results: Lab Results-Last 24 Hours 03/20/17 03/20/17 03/20/17 Range/Units 12:50 12:50 15:17 WBC 8.1 (4.0-10.5) K/mm3 RBC 4.23 (4.1-5.4) M/mm3 Hgb 12.0 (12.0-16.0) gm/dl Hct 36.8 (35-47) % MCV 87.0 (78-100) fl MCH 28.4 (26-32) pg MCHC 32.6 (32-36) g/dl RDW 15.5 H (11.5-14.0) % Plt Count 295 (150-450) K/mm3 MPV 9.2 (6-9.5) fl Segmented Neutrophils 72 H (36.0-66.0) % Lymphocytes (Manual) 22 L (24-44) % Monocytes (Manual) 4 (0.0-12.0) % Eosinophils (Manual) 2 (0.00-3.0) % Differential Comment ABNORMAL Platelet Estimate NORMAL (NORMAL) Polychromasia 1+ Anisocytosis 1+ Sodium 136 (136-145) mEq/L Potassium 3.9 (3.5-5.1) mEq/L Chloride 99 (98-107) mEq/L Carbon Dioxide 26.8 (21-32) mEq/L Anion Gap 13.6 (5-15) MEQ/L BUN 14 (9-20) mg/dL Creatinine 1.04 (0.55-1.30) mg/dl Estimated GFR 56 ML/MIN Glucose 106 (70-110) MG/DL Calcium 9.0 (8.5-10.1) mg/dL Total Bilirubin 0.3 (0.2-1.0) mg/dL AST 14 L (15-37) U/L ALT 13 (12-78) U/L Alkaline Phosphatase 80 (46-116) U/L Troponin I (0.000-0.056) ng/ml Serum Total Protein 7.1 (6.4-8.2) gm/dL Albumin 3.4 (3.4-5.0) g/dL Ur Collection Type CLEAN CATCH Urine Color YELLOW (YELLOW) Urine Appearance CLEAR (CLEAR) Urine pH 6.0 (5-6) Ur Specific [place] <=1.005 (1.005-1.025) Urine Protein NEGATIVE (Negative) Urine Glucose (UA) NEGATIVE (NEGATIVE) mg/dL Urine Ketones NEGATIVE (NEGATIVE) Urine Nitrite NEGATIVE (NEGATIVE) Urine Bilirubin NEGATIVE (NEGATIVE) Urine Urobilinogen 0.2 (0-1) mg/dL Urine WBC (Auto) NEGATIVE (NEGATIVE) Urine RBC (Auto) NEGATIVE (0-5) Alan/ul Specimen Received 03/20/17 1514 03/20/17 Range/Units 18:35 WBC (4.0-10.5) K/mm3 RBC (4.1-5.4) M/mm3 Hgb (12.0-16.0) gm/dl Hct (35-47) % MCV (78-100) fl MCH (26-32) pg MCHC (32-36) g/dl RDW (11.5-14.0) % Plt Count (150-450) K/mm3 MPV (6-9.5) fl Segmented Neutrophils (36.0-66.0) % Lymphocytes (Manual) (24-44) % Monocytes (Manual) (0.0-12.0) % Eosinophils (Manual) (0.00-3.0) % Differential Comment Platelet Estimate (NORMAL) Polychromasia Anisocytosis Sodium (136-145) mEq/L Potassium (3.5-5.1) mEq/L Chloride (98-107) mEq/L Carbon Dioxide (21-32) mEq/L Anion Gap (5-15) MEQ/L BUN (9-20) mg/dL Creatinine (0.55-1.30) mg/dl Estimated GFR ML/MIN Glucose (70-110) MG/DL Calcium (8.5-10.1) mg/dL Total Bilirubin (0.2-1.0) mg/dL AST (15-37) U/L ALT (12-78) U/L Alkaline Phosphatase (46-116) U/L Troponin I < 0.017 (0.000-0.056) ng/ml Serum Total Protein (6.4-8.2) gm/dL Albumin (3.4-5.0) g/dL Ur Collection Type Urine Color (YELLOW) Urine Appearance (CLEAR) Urine pH (5-6) Ur Specific [place] (1.005-1.025) Urine Protein (Negative) Urine Glucose (UA) (NEGATIVE) mg/dL Urine Ketones (NEGATIVE) Urine Nitrite (NEGATIVE) Urine Bilirubin (NEGATIVE) Urine Urobilinogen (0-1) mg/dL Urine WBC (Auto) (NEGATIVE) Urine RBC (Auto) (0-5) Alan/ul Specimen Received Radiology Exams: Radiology Procedures Category Date Time Status CHEST 2 VIEWS (PA AND LAT) Routine Exams 03/20/17 13:00 Completed Assessment/Plan (1) Pneumonia Current Visit: No Status: Acute Qualifiers: Pneumonia type: due to unspecified organism Laterality: right Lung location: middle lobe of lung Qualified Code(s): J18.1 - Lobar pneumonia, unspecified organism Assessment & Plan: Improving, may be able to d/c tomorrow. On IV rocephin and zithromax. Code(s): J18.9 - PNEUMONIA, UNSPECIFIED ORGANISM (2) Failure of outpatient treatment Current Visit: No Status: Acute Code(s): Z78.9 - OTHER SPECIFIED HEALTH STATUS (3) Essential hypertension Current Visit: No Status: Chronic Code(s): I10 - ESSENTIAL (PRIMARY) HYPERTENSION
[2017-03-21] MEDS: ECOTRIN 81 MG PO SCH (09:36)
[2017-03-21] MEDS: Toprol Xl 100 MG PO SCH (09:37)
[2017-03-21] MEDS: xanAX 0.5 MG PO SCH ×2 (09:37→21:44)
[2017-03-21] MEDS: Effexor XR 75 MG PO SCH (09:37)
[2017-03-21] MEDS: solu-MEDROL 125 MG IV SCH ×3 (09:38→21:44)
[2017-03-21] MEDS: NORVASC 5 MG PO SCH (09:38)
[2017-03-21] MEDS: ROCEPHIN 1 Gm-D5w 50 ml Bag** 50 ML IV SCH (09:46)
[2017-03-21] MEDS ORDERED: NON-FORMULARY ITEM (Omeprazole [Omeprazole] 40 MG) PO SCH (10:00)
[2017-03-21] MEDS ORDERED: NON-FORMULARY ITEM (Amlodipine Besylate 10 Mg [Norvasc 10 Mg] 10 MG) PO SCH (10:00)
[2017-03-21] MEDS ORDERED: NON-FORMULARY ITEM (Aspirin [Aspirin] 81 MG) PO SCH (10:00)
[2017-03-21] MEDS: PATIENT OWN MEDICATION PO SCH (10:07)
[2017-03-21] MEDS: Flonase NASAL NS SCH (10:37)
[2017-03-21] MEDS: Zithromax 500 MG/ 250 ML NaCl Premix 250 ML IV SCH (13:37)
[2017-03-21] MEDS: Protonix 40MG Tablet PO SCH (16:57)
[2017-03-22] MEDS: Sodium Chloride 0.9% 10 ML FLUSH Syringe IV SCH (05:32)
--- NOTE | 2017-03-22 08:27 | PCM.DS ---
Discharge Summary Date of Admission: 03/20/17 12:16 Admitting Physician: MOY HOWELL Primary Care Provider: QUIQUE FOSS Allergies Allergies No Known Drug Allergies Allergy (Verified 03/20/17 12:34) Hospital Summary - Hospital Course Hospital Course: Pt admitted with pneumonia, failed outpatient therapy. Has been on zithromax an drocephin IV, with IV solumedrol. She had some chest tightness for several days before that, and troponin on admission was negative. She has improved throughout her stay and is feeling "pretty good" this morning, just "hyper" from the steroid. She c/o epigastric burning pain; has a hx heartburn treated with nexium 20mg po BID. Currently she is getting protonix 2 po daily at the same time. Has never had EGD. Will send her home on po antibiotics and steroids, with nexium 20 po BID. Check a troponin and ekg this morning. Outpatient stress test and EGD. - Vitals & Intake/Output Vital Signs: Vital Signs Temperature 97.6 F 03/22/17 07:29 Pulse Rate 81 03/22/17 07:29 Respiratory Rate 17 03/22/17 07:29 Blood Pressure 177/91 03/22/17 07:29 O2 Sat by Pulse Oximetry 93 L 03/22/17 07:29 Intake & Output: Intake & Output 03/19/17 03/20/17 03/21/17 03/22/17 11:59 11:59 11:59 11:59 Intake Total 1940 1220 Output Total 800 1100 Balance 1140 120 Weight 76.657 kg - Lab Result Diagrams: 03/20/17 12:50 03/20/17 12:50 - Radiology Exams Ordered Rad Exams-Entire Visit: Radiology Procedures Category Date Time Status CHEST 2 VIEWS (PA AND LAT) Routine Exams 03/20/17 13:00 Completed - Procedures and Test Procedures and Tests throughout Hospitalization: Therapy Orders & Screens 03/20/17 12:39 Oxygen NASAL CANNULA 2 lpm Comment: Keep sats >90% Diagnosis: Pneumonia Discharge Exam General Appearance: no apparent distress Neurologic Exam: alert, oriented x 3, cooperative Skin Exam: normal color, warm, dry Eye Exam: eyes nml inspection Respiratory Exam: normal breath sounds, rhonchi (faint in LLL), No crackles/ rales, No wheezing Cardiovascular Exam: regular rate/rhythm, normal heart sounds, No murmur Final Diagnosis/Problem List - Final Discharge Diagnosis/Problem (1) Pneumonia Current Visit: No Status: Acute Assessment & Plan: much improved. Home on po cefdinir and prednisone. (2) Failure of outpatient treatment Current Visit: No Status: Acute (3) Essential hypertension Current Visit: No Status: Chronic Assessment & Plan: has had some elevated BP here. I increased her norvasc from 5mg po daily to 10mg po daily. recheck outpatient in 1 week. Have her take bp at home; if > 170 systolic call the office. (4) Chest pain Current Visit: Yes Status: Acute Assessment & Plan: outpatient stress test, treadmill cardiolyte. (5) GERD (gastroesophageal reflux disease) Current Visit: No Status: Chronic Assessment & Plan: outpatient EGD. PPI BID as discussed. - Discharge Disposition: Home, Self-Care Condition: Stable Prescriptions: New Cefdinir 300 mg PO BID #20 capsule Prednisone 20 mg [Deltasone 20 mg] 20 mg PO DAILY #17 tablet Lisinopril 10 mg [Zestril 10 MG] 10 mg PO DAILY #30 tablet Continue Metoprolol Succinate 100 mg [Toprol Xl 100 MG] 100 mg PO DAILY Venlafaxine HCl ER 75 mg [Effexor XR 75 MG] 75 mg PO DAILY Amlodipine Besylate 10 mg [Norvasc 10 MG] 10 mg PO DAILY Alprazolam 0.5 mg [xanAX 0.5 MG] 0.5 mg PO BID Aspirin 81 mg PO DAILY Cranberry Extract [Cranberry] 500 mg PO DAILY Fluticasone Propionate [Flonase NASAL] 1 spray NS DAILY Changed Omeprazole 40 mg PO BID #20 capsule.
[2017-03-22 08:30] LABS: Mean Cell Volume 85.6 fl (78-100); Mean Corpuscular Hemoglobin 27.9 pg (26-32); Mean Platelet Volume 9.4 fl (6-9.5); Platelet Count 366 K/mm3 (150-450); Red Blood Count 4.52 M/mm3 (4.1-5.4); White Blood Count 17.7 K/mm3 (4.0-10.5)
[2017-03-22] MEDS: ROCEPHIN 1 Gm-D5w 50 ml Bag** 50 ML IV SCH (09:03)
[2017-03-22] MEDS: ECOTRIN 81 MG PO SCH (09:03)
[2017-03-22] MEDS: Toprol Xl 100 MG PO SCH (09:03)
[2017-03-22] MEDS: PATIENT OWN MEDICATION PO SCH (09:04)
[2017-03-22] MEDS: NORVASC 5 MG PO SCH (09:04)
[2017-03-22] MEDS: Effexor XR 75 MG PO SCH (09:04)
[2017-03-22] MEDS: xanAX 0.5 MG PO SCH (09:04)
[2017-03-22] MEDS: Flonase NASAL NS SCH (09:05)
[2017-03-22 09:06] LABS: ANION GAP 14.6 MEQ/L (5-15); BLOOD UREA NITROGEN 15 mg/dL (9-20); CHLORIDE 99 mEq/L (98-107); Carbon Dioxide 26.7 mEq/L (21-32); Glucose 189 MG/DL (70-110); Potassium 3.5 mEq/L (3.5-5.1); SODIUM 137 mEq/L (136-145)
[2017-03-22 09:32] LABS: ANISOCYTOSIS 1+; Platelet Estimate NORMAL (NORMAL); Total Cells Counted 100; Toxic Granulation 1+
[2017-03-22] MEDS ORDERED: solu-MEDROL 125 MG IV SCH (10:00)
[2017-03-22 11:21] VITALS: BP 163/72; PULSE 84; O2SAT 96
== END 2017-03-22 12:25 | disposition home or self-care (01) | DRG 195 ==
LOC: MED SURG 12:16
PROVIDERS: ADMIT Family Medicine; ATTEND Family Medicine
DX: J18.9 Pneumonia, unspecified organism (principal); I10 Essential (primary) hypertension; K21.9 Gastro-esophageal reflux disease without esophagitis; R07.89 Other chest pain; Z79.899 Other long term (current) drug therapy; M19.90 Unspecified osteoarthritis, unspecified site; F41.8 Other specified anxiety disorders
CPT/HCPCS: 36415; 71020; 80048; 80053; 81002; 84484; 85025; 94760; J0456; J0696; J2930; A9270-GY

== ENCOUNTER 2017-04-10 05:45 | Day surgery (SDC) | payer MEDICARE ==
[2017-04-10] MEDS ORDERED: Lactated Ringers 1,000 ML IV SCH (07:00)
[2017-04-10] MEDS ORDERED: Lactated Ringers 1,000 ML IV ONE (07:04)
[2017-04-10] MEDS ORDERED: DIPRIVAN 200 MG/20 ML IV ONE (08:00)
--- NOTE | 2017-04-10 08:22 | OP ---
SURGERY DATE/TIME: 04/10/2017 0741 PREOPERATIVE DIAGNOSIS: Epigastric pain. POSTOPERATIVE DIAGNOSES: 1) Mild to moderate gastritis. 2) Hiatal hernia. PROCEDURE: Esophagogastroduodenoscopy with biopsy. SURGEON: Dr. Grullon. ANESTHESIA: Medications were given by the anesthesia department. BRIEF HISTORY: The patient is a 71 year old white female patient presenting now for complaints of epigastric pain. The patient does take aspirin on a regular basis and reports that the pain is better with 40 mg of omeprazole twice a day. It takes that much to control her problem. The patient was felt the need to have endoscopic evaluation. She was appraised of the risks of the procedure including the risk of perforation, phlebitis, untoward reaction to medication, bleeding and missed lesions. The patient verbalized her understanding and desired to have the procedure performed. DESCRIPTION OF PROCEDURE: The patient was given the medications by the anesthesia department. She had continuous pulse oximetry, ECG monitoring, intermittent blood pressure monitoring and tidal CO2 monitoring during the examination. She was placed in the left lateral decubitus position. A bite block was placed. The flexible Olympus gastroscope was used to intubate the oropharynx. A view of the larynx was obtained and this was normal. The scope was easily introduced in the esophagus which appeared to be normal throughout its length. The stomach was entered where normal gastric rugal folds were seen and these distended nicely with insufflation of air. The scope was passed along the greater curvature of the stomach to the antrum. There appeared to be patchy erythema but no erosions or ulcerations. The pylorus is encountered and intubated. The duodenum inspected and found to be normal. The scope is then withdrawn towards the stomach. Again, a retroflex view was obtained of the lesser curvature, fundus and cardia regions of the stomach. There appeared to be hiatal hernia. The scope was then redirected towards the gastric antrum and biopsies were obtained to rule out the presence of Helicobacter pylori-type organisms. The scope was then removed from the patient who tolerated the procedure well and was sent back to the hospital [facility] in good condition.
[2017-04-10 08:55] VITALS: PULSE 69
[2017-04-10 09:57] VITALS: O2SAT 98
[2017-04-10 10:03] VITALS: BP 154/84
== END 2017-04-10 09:50 | disposition home or self-care (01) ==
LOC: SDC 05:45
PROVIDERS: ATTEND Family Medicine
PROC: 0DB68ZX Excision of Stomach, Via Natural or Artificial Opening Endoscopic, Diagnostic (ICD-10-PCS; principal; 2017-04-10)
DX: K29.70 Gastritis, unspecified, without bleeding (principal); K44.9 Diaphragmatic hernia without obstruction or gangrene
CPT/HCPCS: 00740; 36415; 99100; J2704

== ENCOUNTER 2018-05-03 19:20 | Emergency (ER) | payer MEDICARE ==
[2018-05-03 22:10] VITALS: PULSE 80
[2018-05-03 23:25] VITALS: O2SAT 94
[2018-05-04 00:08] VITALS: BP 168/92
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
== END 2018-05-04 00:25 | disposition home or self-care (01) ==
LOC: ED 19:20
DX: S13.9XXA Sprain of joints and ligaments of unspecified parts of neck, initial encounter (principal); M54.2 Cervicalgia; R51 Headache; V43.51XA Car driver injured in collision with sport utility vehicle in traffic accident, initial encounter; Z79.899 Other long term (current) drug therapy
CPT/HCPCS: 70450; 72125; 99284; L0120

== ENCOUNTER 2022-06-09 06:12 | Day surgery (SDC) | payer MEDICARE ==
[~2022-06-09 06:12] MED LIST: Lactated Ringers 1,000 ML IV SCH
[2022-06-09] MEDS ORDERED: Lactated Ringers 1,000 ML IV ONE (06:25)
[2022-06-09] MEDS ORDERED: XYLOCAINE 1% HCL 20 ML MDV ONE (06:26)
[2022-06-09] MEDS ORDERED: CEFAZOLIN 2 GM-D5W BAG** 2 GM/50 ML ML IV SCH (06:30)
[2022-06-09] MEDS ORDERED: Marcaine Mpf 0.5% Vial 30 Ml ONE (06:30)
[2022-06-09 06:48] LABS: ALBUMIN 3.9 g/dL (3.5-5.0); ANION GAP 12.7 MEQ/L (5-15); BILIRUBIN,TOTAL 0.2 mg/dL (0.2-1.3); Creatinine 1 1.42 mg/dL (0.52-1.04); EST GLOMERULAR FILTRATION RATE 38.2 ML/MIN; Potassium 4.1 mmol/L (3.5-5.1); Total Protein 6.8 g/dL (6.3-8.2)
[2022-06-09] MEDS ORDERED: DIPRIVAN 200 MG/20 ML IV ONE ×2 (08:09→08:50)
[2022-06-09] MEDS ORDERED: Xylocaine-Mpf 2% 5 Ml Vial ONE (08:09)
[2022-06-09] MEDS ORDERED: Decadron 4 MG INJ ONE (08:09)
[2022-06-09] MEDS ORDERED: SUBLIMAZE 100 MCG/2 ML ONE (08:09)
[2022-06-09] MEDS ORDERED: Zofran 4 MG/2 ML VIAL ONE (08:09)
[2022-06-09] MEDS ORDERED: Versed 2 MG/2 ML Injection ONE (08:09)
[2022-06-09 10:30] VITALS: BP 137/78; PULSE 72; O2SAT 94
--- NOTE | 2022-06-09 10:54 | OP ---
SURGERY DATE/TIME: 06/09/2022 PREOPERATIVE DIAGNOSES: 1) Metatarsal deformity right second metatarsal. 2) Pain right foot. 3) Hammer toe. 4) Painful orthopedic hardware. POSTOPERATIVE DIAGNOSES: 1) Metatarsal deformity right second metatarsal. 2) Pain right foot. 3) Hammer toe. 4) Painful orthopedic hardware. PROCEDURE: Amputation second digit with partial metatarsal amputation right foot. SURGEON: Doc Martinez DPM. 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 ANESTHESIA: Monitored anesthesia care with preoperative MAC plus local. See injectables for details. HEMOSTASIS: Pressure dressing. ESTIMATED BLOOD LOSS: Less than 3 cc. MATERIALS: 4-0 Monocryl, 4-0 Nylon. INJECTABLES: 20 cc of 1:1 mixture of 1% lidocaine plain and 0.5% bupivacaine plain injected in a metatarsal block-type fashion. INDICATION FOR SURGERY: Amie is a very pleasant 77-year-old female who is well known to my service. She has had significant amount of pain underneath the ball of the right foot. X-rays were taken demonstrating a previous attempt at correction of her forefoot deformity. 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 The patient does have continued pain with weightbearing. She likens the pain to having a nail driven into the bottom of her foot. She indicates that at this time that other than undergoing a large reconstruction with no guarantee of alleviating her pain, recommendation was made for an amputation of the digit as well as the metatarsal which she is amenable. The patient understands all risks, complications and benefits of surgical intervention including but not limited to delayed skin healing, nonskin healing, delayed bone healing, possibility of nonresolution of the pain, possibility of need for further surgical intervention at a later date. The patient understands there are no guarantees provided as to the outcome of surgical intervention. Plenty of time was allowed for the patient and her two daughters to ask questions which were answered to their apparent satisfaction. It is with that we decided to proceed. DESCRIPTION OF PROCEDURE AND FINDINGS: The patient is brought into the OR and placed and placed on the OR bed in supine position. At this time the right lower extremity prepped and draped in the typical sterile fashion. A local block was introduced from the dorsal aspect of the first and second web spaces in order to provide a metatarsal block to the right foot. After this was performed, attention was directed to the dorsal aspect of the second digit where a fish mouth dorsal racket incision was made over the second digit and metatarsal. At this time a 15 blade was utilized to carry down full thickness flaps to the base of the second metatarsal and surrounding the second digit. Disarticulation of the second digit was performed and was handed off the field. At this time the metatarsal head was then resected utilizing a sagittal saw and handed off the field. At this time assessment of the metatarsal head was significantly more deformed than what originally was anticipated based on x-rays alone. It does appear that there was some significant avascular necrosis to the metatarsal head. At this time the pathology was handed off of the field and sent for pathological assessment. The incision site was cleansed with copious amounts of sterile saline. Following this, 4-0 Monocryl was utilized to coapt the surgical site and then 4-0 Nylon was utilized to coapt the skin edges. A dressing consisting of Betadine, Adaptic, 4x4, Kerlix and BRITTANI was then applied to the patient's right foot. The patient was then reversed from anesthesia and returned to the postoperative anesthesia care unit with vital signs stable and vascular status intact. The patient handled the anesthesia without complication as well as the procedure. Postoperative orders as indicated in the patient's discharge chart.
== END 2022-06-09 10:46 | disposition home or self-care (01) ==
LOC: SDC 06:12
PROVIDERS: ATTEND Podiatrist Foot & Ankle Surgery
DX: M20.41 Other hammer toe(s) (acquired), right foot (principal); M20.5X1 Other deformities of toe(s) (acquired), right foot; M79.671 Pain in right foot; T84.84XA Pain due to internal orthopedic prosthetic devices, implants and grafts, initial encounter
CPT/HCPCS: 28810; 36415; 80053; 99100; J0690; J1100; J2250; J2405; J2704; J3010

== ENCOUNTER 2022-08-02 15:10 | Inpatient (IN) | payer MEDICARE ==
[2022-08-02] MEDS ORDERED: Sodium Chloride 0.9% 1000 ML 1,000 ML IV STA (15:17)
[2022-08-02] MEDS ORDERED: Zofran 4 MG/2 ML VIAL IV ONE (15:18)
[2022-08-02] MEDS ORDERED: Zofran 4 MG/2 ML VIAL ONE (15:37)
[2022-08-02] MEDS ORDERED: Sodium Chloride 0.9% 1000 ML 1,000 ML ONE (15:38)
--- NOTE | 2022-08-02 15:50 | ERPHSYRPT ---
- History of Present Illness Historian: patient Exam Limitations: no limitations Patient Subjective Stated Complaint: C/O N/V and diarrhea since Sunday Triage Nursing Assessment: Patient brought back to ED in a W/C. She was able to transfer self from chair to bed with standby assist only. She is alert and oriented. No SOB noted. Skin pale. Physician History: 77 yo wf w N/V/D/diffuse abdominal pain x 4 days. Pain is 6/10, aching, and nothing makes better or worse. She denies hematemeis/melena/hematochezia/fever/dysuria/hematuria/cough/chest pain. Timing/Duration: other (4 days) Activities at Onset: rest Quality: aching Abdominal Pain Onset Location: generalized abdomen Pain Radiation: no radiation Severity of Pain-Max: moderate Severity of Pain-Current: moderate Modifying Factors: Improves With: nothing Associated Symptoms: diarrhea, fatigue, loss of appetite, nausea, vomiting, weakness, No back, No chest pain, No diaphoresis, No fever/chills, No headache, No heartburn, No neck pain, No rash, No shortness of breath, No syncope Previous symptoms: no prior history Allergies/Adverse Reactions: No Known Drug Allergies Allergy (Verified 08/02/22 15:29) Home Medications: ALPRAZolam 0.5 MG [xanAX 0.5 MG] 0.5 mg PO TID PRN PRN 01/10/14 [History] Amlodipine Besylate 10 mg [Norvasc 10 MG] 5 mg PO BID 01/10/14 [History] Metoprolol Succinate 100 mg [Toprol Xl 100 MG] 25 mg PO BID 01/10/14 [History] Venlafaxine HCl ER 75 mg [Effexor XR 75 MG] 150 mg PO DAILY 01/10/14 [History] Aspirin 81 mg PO DAILY 12/02/16 [History] Fluticasone Propionate [Flonase NASAL] 1 spray NS DAILY PRN PRN 03/20/17 [History] Furosemide [Lasix] 40 mg PO DAILY 06/01/22 [History] Lisinopril 10 mg [Zestril 10 MG] 20 mg PO BID 06/01/22 [History] Omeprazole 40 mg PO BID 06/01/22 [History] Hx Tetanus, Diphtheria Vaccination/Date Given: Yes Hx Influenza Vaccination/Date Given: No Hx Pneumococcal Vaccination/Date Given: Yes Immunizations Up to Date: Yes Travel Risk - International Travel Have you traveled outside of the country in past 3 weeks: No - Coronavirus Screening Are you exhibiting any of the following symptoms?: No Close contact with a COVID-19 positive Pt in past 14-21 Days: No - Vaccine Status Have you recieved a Covid-19 vaccination: Yes 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: [employer] - Vaccination Dates Date of 2cond Vaccination (if applicable): 2020 - Review of Systems Constitutional: No Symptoms, Fatigue, Malaise Eyes: No Symptoms Ears, Nose, & Throat: No Symptoms Respiratory: No Symptoms Cardiac: No Symptoms Abdominal/Gastrointestinal: No Symptoms, Abdominal Pain, Nausea, Vomiting, Diarrhea Genitourinary Symptoms: No Symptoms Musculoskeletal: No Symptoms Skin: No Symptoms Neurological: No Symptoms Psychological: No Symptoms Endocrine: No Symptoms Hematologic/Lymphatic: No Symptoms Immunological/Allergic: No Symptoms - Past Medical History Pertinent Past Medical History: Yes Neurological History: No Pertinent History ENT History: Cataracts Cardiac History: Hypertension Respiratory History: No Pertinent History Endocrine Medical History: No Pertinent History Musculoskeletal History: No Pertinent History GI Medical History: GERD History: No Pertinent History Psycho-Social History: Anxiety, Depression, Panic Disorder Female Reproductive Disorders: No Pertinent History Other Medical History: C-Diff - Past Surgical History Past Surgical History: Yes Neuro Surgical History: No Pertinent History Cardiac: No Pertinent History Respiratory: No Pertinent History Gastrointestinal: No Pertinent History Genitourinary: No Pertinent History Musculoskeletal: Orthopedic Surgery Female Surgical History: Section, Hysterectomy Other Surgical History: right knee replacement, back surgery; rotator cuff, 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, left shoulder, facial surgery - Social History Smoking Status: Former smoker Exposure to second hand smoke: No Drug Use: none Patient Lives Alone: Yes - Nursing Vital Signs Nursing Vital Signs: Initial Vital Signs Temperature 97.2 F 08/02/22 15:31 Pulse Rate 81 08/02/22 15:31 Respiratory Rate 18 08/02/22 15:31 Blood Pressure 128/65 08/02/22 15:31 O2 Sat by Pulse Oximetry 96 08/02/22 15:31 Pain Scale Pain Intensity 2 WNL - Physical Exam General Appearance: no apparent distress Eye Exam: PERRL/EOMI, eyes nml inspection Ears, Nose, Throat Exam: normal ENT inspection, TMs normal, pharynx normal, moist mucous membranes Neck Exam: normal inspection, non-tender, supple, full range of motion, No meningismus, No mass, No Brudzinski, No Kernig's Respiratory Exam: normal breath sounds, lungs clear, airway intact Cardiovascular Exam: regular rate/rhythm, normal heart sounds, normal peripheral pulses, No murmur Gastrointestinal/Abdomen Exam: soft, normal bowel sounds, tenderness (Diffuse TTP wo guarding or rebound), No distention Back Exam: normal inspection, normal range of motion, No CVA tenderness, No vertebral tenderness Extremity Exam: normal inspection, normal range of motion Neurologic Exam: alert, oriented x 3, cooperative, 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, normal mood/affect Skin Exam: normal color, warm, dry, No rash Lymphatic Exam: No adenopathy SpO2 Interpretation: normal SpO2: 96 O2 Delivery: Room Air - Course Nursing assessment & vital signs reviewed: Yes EKG Interpreted by Me: RATE (NSR/Rate83/Normal QT-QTc/Tall Rwave V2/No acute ST segment changes) - CT Exams Abdomen/Pelvis CT Interpretation: Discussed w/radiologist (Mild colitis descending colon) Ordered Tests: Active Orders 24 hr Category Date Time Status IV Insertion STAT Care 08/02/22 15:36 Completed Clear Liquid Diet 08/03/22 Breakfast Active ABDOMEN AND PELVIS W/0 CONTRAS [CT] Stat Exams 08/02/22 16:39 Taken AMYLASE Stat Lab 08/02/22 15:35 Completed CBC W DIFF AM.LAB Lab 08/03/22 04:00 Ordered CBC W DIFF Stat Lab 08/02/22 15:35 Completed CMP AM.LAB Lab 08/03/22 04:00 Ordered CMP Stat Lab 08/02/22 15:35 Completed LIPASE Stat Lab 08/02/22 15:35 Completed Lactic Acid Stat Lab 08/02/22 15:40 Completed Occult Blood Stool [FECAL OCCULT BLOOD - SCREENING] Lab 08/02/22 Ordered Stat TROPONIN Q4H Lab 08/02/22 15:35 Completed TROPONIN Q4H Lab 08/02/22 19:30 Ordered TROPONIN Q4H Lab 08/02/22 23:30 Ordered UA W/RFX CULTURE Stat Lab 08/02/22 15:37 Completed Transfer Order Routine Transfer 08/02/22 Completed Medication Summary Generic Name Dose Route Start Last Admin Trade Name Lazaro PRN Reason Stop Dose Admin Fentanyl Citrate 25 mcg 08/02/22 18:14 Fentanyl Citrate 100 Mcg/2 Ml* Vial IV 08/07/22 18:13 Q4H PRN PRN SEVERE PAIN Sodium Chloride 1,000 mls @ 100 mls/hr 08/02/22 18:15 Sodium Chloride 0.9% 1000 Ml IV 09/01/22 18:14 .Q10H LENNIE Levofloxacin/Dextrose 500 mg in 100 mls @ 100 mls/hr 08/03/22 10:00 Levofloxacin 500mg/100ml D5w IV 09/02/22 09:59 Q24H10 LENNIE Metronidazole 500 mg in 100 mls @ 200 mls/hr 08/02/22 22:00 Flagyl 500 Mg Ivpb IV 09/01/22 21:59 Q8HT LENNIE Ondansetron HCl 4 mg 08/02/22 18:09 Ondansetron Hcl 4 Mg/2 Ml Vial IV 09/01/22 18:08 Q6H PRN PRN NAUSEA/VOMITING Discontinued Medications Generic Name Dose Route Start Last Admin Trade Name Lazaro PRN Reason Stop Dose Admin Fentanyl Citrate 25 mcg 08/02/22 16:18 08/02/22 16:20 Fentanyl Citrate 100 Mcg/2 Ml* Vial IV 08/02/22 16:19 25 mcg STAT ONE Administration Fentanyl Citrate Confirm 08/02/22 16:19 Fentanyl Citrate 100 Mcg/2 Ml* Vial Administered 08/02/22 16:20 Dose 100 mcg .ROUTE .STK-MED ONE Sodium Chloride 1,000 mls @ 999 mls/hr 08/02/22 15:17 08/02/22 16:40 Sodium Chloride 0.9% 1000 Ml IV 08/02/22 16:17 Infused .Q1H1M STA Infusion Sodium Chloride Confirm 08/02/22 15:38 Sodium Chloride 0.9% 1000 Ml Administered 08/02/22 15:39 Dose 1,000 mls @ ud .ROUTE .STK-MED ONE Metronidazole 500 mg in 100 mls @ 200 mls/hr 08/02/22 18:12 08/02/22 18:14 Flagyl 500 Mg Ivpb IV 08/02/22 18:41 200 ml/hr STAT STA 200 mls/hr Administration Ondansetron HCl 4 mg 08/02/22 15:18 08/02/22 15:39 Ondansetron Hcl 4 Mg/2 Ml Vial IV 08/02/22 15:19 4 mg STAT ONE Administration Ondansetron HCl Confirm 08/02/22 15:37 Ondansetron Hcl 4 Mg/2 Ml Vial Administered 08/02/22 15:38 Dose 4 mg .ROUTE .STK-MED ONE Lab/Rad Data: Laboratory Result Diagrams 08/02/22 15:35 08/02/22 15:35 Laboratory Results 08/02/22 08/02/22 08/02/22 Range/Units 15:40 15:37 15:35 WBC (4.0-10.5) x10^3/uL RBC (4.1-5.4) x10^6/uL Hgb (12.0-16.0) g/dL Hct (35-47) % MCV (78-100) fL MCH (26-32) pg MCHC (32-36) g/dL RDW (11.5-14.0) % Plt Count (150-450) x10^3/uL MPV (7.5-11.0) fL Gran % (36.0-66.0) % Immature Gran % (Auto) (0.00-0.4) % Nucleat RBC Rel Count (0.00-0.1) % Eos # (Auto) (0-0.5) x10^3/uL Immature Gran # (Auto) (0.00-0.03) x10^3u/L Absolute Lymphs (auto) (1.0-4.6) x10^3/uL Absolute Monos (auto) (0.0-1.3) x10^3/uL Absolute Nucleated RBC (0.00-0.01) x10^3u/L Lymphocytes % (24.0-44.0) % Monocytes % (0.0-12.0) % Eosinophils % (0.00-5.0) % Basophils % (0.0-0.4) % Absolute Granulocytes (1.4-6.9) x10^3/uL Basophils # (0-0.4) x10^3/uL Sodium (137-145) mmol/L Potassium (3.5-5.1) mmol/L Chloride (98-107) mmol/L Carbon Dioxide (22-30) mmol/L Anion Gap (5-15) MEQ/L BUN (7-17) mg/dL Creatinine (0.52-1.04) mg/dL Estimated GFR ML/MIN Glucose (74-106) mg/dL Lactic Acid 1.9 (0.4-2.0) Calcium (8.4-10.2) mg/dL Total Bilirubin (0.2-1.3) mg/dL AST (14-36) U/L ALT (0-35) U/L Alkaline Phosphatase (38-126) U/L Troponin I < 0.012 (0.000-0.034) ng/mL Serum Total Protein (6.3-8.2) g/dL Albumin (3.5-5.0) g/dL Amylase (30-110) U/L Lipase (23-300) U/L Urinalys Dipstick Clnc MAIN LAB Urine Color YELLOW (YELLOW) Urine Appearance CLEAR (CLEAR) Urine pH 5.5 (5-6) Ur Specific [place] 1.010 (1.005-1.025) POC Urine Protein Conf NEGATIVE (Negative) Urine Ketones NEGATIVE (NEGATIVE) Urine Nitrite NEGATIVE (NEGATIVE) Urine Bilirubin NEGATIVE (NEGATIVE) Urine Urobilinogen 0.2 (0-1) mg/dL Urine Leukocytes NEGATIVE (NEGATIVE) Urine WBC (Auto) NONE (0-5) /HPF Urine RBC (Auto) NONE (0-2) /HPF Urine RBC NEGATIVE (0-5) Alan/ul Ur Culture Indicated? NO Urine Glucose NEGATIVE (NEGATIVE) mg/dL 08/02/22 08/02/22 Range/Units 15:35 15:35 WBC 11.5 H (4.0-10.5) x10^3/uL RBC 3.74 L (4.1-5.4) x10^6/uL Hgb 8.5 L (12.0-16.0) g/dL Hct 29.8 L (35-47) % MCV 79.7 (78-100) fL MCH 22.7 L (26-32) pg MCHC 28.5 L (32-36) g/dL RDW 16.6 H (11.5-14.0) % Plt Count 346 (150-450) x10^3/uL MPV 9.9 (7.5-11.0) fL Gran % 74.8 H (36.0-66.0) % Immature Gran % (Auto) 0.7 H (0.00-0.4) % Nucleat RBC Rel Count 0.0 (0.00-0.1) % Eos # (Auto) 0.12 (0-0.5) x10^3/uL Immature Gran # (Auto) 0.08 H (0.00-0.03) x10^3u/L Absolute Lymphs (auto) 1.01 (1.0-4.6) x10^3/uL Absolute Monos (auto) 1.66 H (0.0-1.3) x10^3/uL Absolute Nucleated RBC 0.00 (0.00-0.01) x10^3u/L Lymphocytes % 8.8 L (24.0-44.0) % Monocytes % 14.4 H (0.0-12.0) % Eosinophils % 1.0 (0.00-5.0) % Basophils % 0.3 (0.0-0.4) % Absolute Granulocytes 8.61 H (1.4-6.9) x10^3/uL Basophils # 0.04 (0-0.4) x10^3/uL Sodium 131 L (137-145) mmol/L Potassium 4.0 (3.5-5.1) mmol/L Chloride 99 (98-107) mmol/L Carbon Dioxide 21 L (22-30) mmol/L Anion Gap 14.5 (5-15) MEQ/L BUN 16 (7-17) mg/dL Creatinine 1.03 (0.52-1.04) mg/dL Estimated GFR 55.4 ML/MIN Glucose 105 (74-106) mg/dL Lactic Acid (0.4-2.0) Calcium 8.6 (8.4-10.2) mg/dL Total Bilirubin 0.50 (0.2-1.3) mg/dL AST 18 (14-36) U/L ALT 13 (0-35) U/L Alkaline Phosphatase 84 (38-126) U/L Troponin I (0.000-0.034) ng/mL Serum Total Protein 6.6 (6.3-8.2) g/dL Albumin 3.7 (3.5-5.0) g/dL Amylase 35 (30-110) U/L Lipase 40 (23-300) U/L Urinalys Dipstick Clnc Urine Color (YELLOW) Urine Appearance (CLEAR) Urine pH (5-6) Ur Specific [place] (1.005-1.025) POC Urine Protein Conf (Negative) Urine Ketones (NEGATIVE) Urine Nitrite (NEGATIVE) Urine Bilirubin (NEGATIVE) Urine Urobilinogen (0-1) mg/dL Urine Leukocytes (NEGATIVE) Urine WBC (Auto) (0-5) /HPF Urine RBC (Auto) (0-2) /HPF Urine RBC (0-5) Alan/ul Ur Culture Indicated? Urine Glucose (NEGATIVE) mg/dL - Progress Progress: improved Progress Note: 08/02/22 18:08 1L NS bolus 4mg IV Zofran 25mcg IV Fentanyl Obs per Dr. Quintanilla/Wants to start Levaquin-Flagyl 08/02/22 18:15 Counseled pt/family regarding: lab results, diagnosis, need for follow-up, rad results - Departure Departure Disposition: Observation Clinical Impression: Colitis Condition: Stable Critical Care Time: No
[2022-08-02 16:06] LABS: Absolute Neutrophil Ct (ANC) 8.61 x10^3/uL (1.4-6.9); Basophil (Absolute #) 0.04 x10^3/uL (0-0.4); Eosinophil (Absolute #) 0.12 x10^3/uL (0-0.5); Hematocrit 29.8 % (35-47); Hemoglobin 8.5 g/dL (12.0-16.0); Lymphocyte (Absolute #) 1.01 x10^3/uL (1.0-4.6); Lymphocytes % 8.8 % (24.0-44.0); Mean Cell Volume 79.7 fL (78-100); Mean Corpuscular Hemoglobin 22.7 pg (26-32); Mean Corpuscular Hgb Concent. 28.5 g/dL (32-36); Mean Platelet Volume 9.9 fL (7.5-11.0); Monocyte (Absolute #) 1.66 x10^3/uL (0.0-1.3); Monocytes % 14.4 % (0.0-12.0); Neutrophil % 74.8 % (36.0-66.0); Platelet Count 346 x10^3/uL (150-450); Red Blood Count 3.74 x10^6/uL (4.1-5.4); Red Cell Distribution Width 16.6 % (11.5-14.0); White Blood Count 11.5 x10^3/uL (4.0-10.5)
[2022-08-02 16:08] LABS: ANION GAP 14.5 MEQ/L (5-15); BILIRUBIN,TOTAL 0.5 mg/dL (0.2-1.3); Calcium 8.6 mg/dL (8.4-10.2); Creatinine 1 1.03 mg/dL (0.52-1.04); EST GLOMERULAR FILTRATION RATE 55.4 ML/MIN; Total Protein 6.6 g/dL (6.3-8.2)
[2022-08-02] MEDS ORDERED: SUBLIMAZE 100 MCG/2 ML IV ONE (16:18)
[2022-08-02] MEDS ORDERED: SUBLIMAZE 100 MCG/2 ML ONE (16:19)
[2022-08-02 16:21] LABS: ALBUMIN 3.7 g/dL (3.5-5.0)
[2022-08-02 16:48] LABS: INFLUENZA A NEGATIVE (NEGATIVE); INFLUENZA B NEGATIVE (NEGATIVE); RESPIRATORY SYNCTIAL VIRUS NEGATIVE (Negative); SARS-CoV-2 Xpert Express NEGATIVE (NEGATIVE)
[2022-08-02 16:54] LABS: Appearance CLEAR (CLEAR); Glucose NEGATIVE (NEGATIVE)
[2022-08-02 16:55] LABS: Bilirubin NEGATIVE (NEGATIVE); Dipstick done @ ? MAIN LAB; Ketones NEGATIVE (NEGATIVE); Nitrite NEGATIVE (NEGATIVE); Ph 5.5 (5-6); Protein,Urine Dip NEGATIVE (Negative); RBC NEGATIVE Ery/ul (0-5); Urine Cultured Indicated? NO; Urobilinogen 0.2 mg/dL (0-1)
[2022-08-02] MEDS ORDERED: Zofran 4 MG/2 ML VIAL IV PRN (18:09)
[2022-08-02] MEDS ORDERED: FLAGYL 500 MG IVPB 500 MG/100 ML BAG IV ONE (18:12)
[2022-08-02] MEDS ORDERED: FLAGYL 500 MG IVPB 500 MG/100 ML BAG IV STA (18:12)
[2022-08-02 19:07] LABS: Slide Review 1 YES
[2022-08-02] MEDS ORDERED: Levofloxacin 500MG/100ML D5W 500 MG/100 ML BAG IV ONE (19:13)
[2022-08-02] MEDS: Sodium Chloride 0.9% 1000 ML 1,000 ML IV SCH (19:48)
[2022-08-02] MEDS: FLAGYL 500 MG IVPB 500 MG/100 ML BAG IV SCH (20:34)
[2022-08-02] MEDS: SUBLIMAZE 100 MCG/2 ML IV PRN (22:10)
[2022-08-03 05:00] LABS: Absolute Neutrophil Ct (ANC) 3.74 x10^3/uL (1.4-6.9); Basophil (Absolute #) 0.03 x10^3/uL (0-0.4); Eosinophil (Absolute #) 0.13 x10^3/uL (0-0.5); Hematocrit 24.2 % (35-47); Lymphocyte (Absolute #) 1.02 x10^3/uL (1.0-4.6); Lymphocytes % 15.9 % (24.0-44.0); Mean Cell Volume 78.6 fL (78-100); Mean Corpuscular Hemoglobin 22.7 pg (26-32); Mean Corpuscular Hgb Concent. 28.9 g/dL (32-36); Mean Platelet Volume 9.4 fL (7.5-11.0); Monocyte (Absolute #) 1.42 x10^3/uL (0.0-1.3); Monocytes % 22.2 % (0.0-12.0); Neutrophil % 58.5 % (36.0-66.0); Platelet Count 238 x10^3/uL (150-450); Red Blood Count 3.08 x10^6/uL (4.1-5.4); Red Cell Distribution Width 16.3 % (11.5-14.0); White Blood Count 6.4 x10^3/uL (4.0-10.5)
[2022-08-03 05:37] LABS: ALKALINE PHOSPHATASE 64 U/L (38-126); BLOOD UREA NITROGEN 12 mg/dL (7-17); CHLORIDE 103 mmol/L (98-107); Calcium 8.1 mg/dL (8.4-10.2); Carbon Dioxide 22 mmol/L (22-30); Creatinine 1 0.77 mg/dL (0.52-1.04); EST GLOMERULAR FILTRATION RATE > 60.0 ML/MIN; Glucose 100 mg/dL (74-106); Potassium 3.8 mmol/L (3.5-5.1); SGOT/AST 13 U/L (14-36); SGPT/ALT 10 U/L (0-35); SODIUM 132 mmol/L (137-145); Total Protein 5.6 g/dL (6.3-8.2)
[2022-08-03 05:44] LABS: Slide Review 1 YES
[2022-08-03] MEDS: FLAGYL 500 MG IVPB 500 MG/100 ML BAG IV SCH ×3 (05:55→21:39)
[2022-08-03] MEDS: SUBLIMAZE 100 MCG/2 ML IV PRN ×4 (06:04→21:46)
[2022-08-03] MEDS: Sodium Chloride 0.9% 1000 ML 1,000 ML IV SCH (06:54)
--- NOTE | 2022-08-03 08:46 | XRAY ---
Indication: Right lower quadrant pain. Multiple contiguous axial images obtained through the abdomen and pelvis without contrast. Comparison: None Study is degraded by diffuse respiration artifact throughout. Lung bases demonstrates bibasilar fibrosis/scarring and tiny right lower lobe calcified granulomas. Heart not enlarged. Small hiatal hernia. Noncontrasted stomach and bowel loops appear nonobstructed. Normal retrocecal appendix. Scattered colonic diverticulosis, greatest in the sigmoid colon. Descending colon and demonstrates mild circumferential wall thickening with minimal stranding favoring colitis. Tiny left colic fluid presumed reactive. No free air. Hysterectomy reported. Left upper kidney demonstrates 1 cm exophytic cyst. Remaining liver, gallbladder, pancreas, spleen, adrenal glands, kidneys, ureters, and bladder are unremarkable for noncontrast exam. Moderate scattered aortoiliac calcifications without AAA. Osseous structures intact with osteopenia, moderate/advanced multilevel thoracolumbar degenerative spondylosis, and minimal levoscoliosis centered at L2. Impression: 1. Diffuse respiration artifact. 2. Mild descending colitis with tiny reactive fluid. 3. Chronic findings including small hiatal hernia, small left renal cyst, colonic diverticulosis, arteriosclerotic disease, and chronic bony findings.
[2022-08-03] MEDS ORDERED: TYLENOL 325 MG PO ONE (08:59)
[2022-08-03] MEDS ORDERED: BENADRYL 25 MG CAPSULE PO ONE (08:59)
--- NOTE | 2022-08-03 09:05 | PCM.HP ---
History of Present Illness - Chief Complaint Chief Complaint: Colitis History of Present Illness: is a 77 year old female with a several day history of vomiting, diarrhea and abdominal pain. she has been sick and improved then worsened again in the last few days, pain is diffuse and non localizing. longstanding history of anemia requiring iron transfusions but hasn't followed up in some time on this problem with Dr Fontanez, had a similar episode of colitis in 2019 and had a scope with Dr Rudd at that time due to anemia. - Review of Systems Constitutional: No Fever, No Chills Respiratory: No Cough, No Short Of Breath Cardiac: No Chest Pain, No Edema, No Syncope Abdominal/Gastrointestinal: Abdominal Pain, Nausea, Vomiting, Diarrhea Genitourinary Symptoms: No Dysuria Skin: No Rash All Other Systems: Reviewed and Negative Medications & Allergies Home Medications: Home Medication List ALPRAZolam 0.5 MG [xanAX 0.5 MG] 0.5 mg PO TID PRN PRN 01/10/14 [History Confirmed 08/02/22] Amlodipine Besylate 10 mg [Norvasc 10 MG] 5 mg PO BID 01/10/14 [History Confirmed 08/02/22] Metoprolol Succinate 100 mg [Toprol Xl 100 MG] 25 mg PO BID 01/10/14 [History Confirmed 08/02/22] Venlafaxine HCl ER 75 mg [Effexor XR 75 MG] 150 mg PO DAILY 01/10/14 [History Confirmed 08/02/22] Aspirin 81 mg PO DAILY 12/02/16 [History Confirmed 08/02/22] Fluticasone Propionate [Flonase NASAL] 1 spray NS DAILY PRN PRN 03/20/17 [History Confirmed 08/02/22] Furosemide [Lasix] 40 mg PO UD 06/01/22 [History Confirmed 08/02/22] Lisinopril 10 mg [Zestril 10 MG] 20 mg PO BID 06/01/22 [History Confirmed 08/02/22] Omeprazole 40 mg PO BID 06/01/22 [History Confirmed 08/02/22] Allergies/Adverse Reactions: Allergies Allergy/AdvReac Type Severity Reaction Status Date / Time No Known Drug Allergies Allergy Verified 08/02/22 15:29 - Past Medical History Past Medical History: Yes Neurological History: No Pertinent History ENT History: Cataracts Cardiac History: Hypertension Respiratory History: No Pertinent History Endocrine Medical History: No Pertinent History Musculoskelatal History: No Pertinent History GI Medical History: GERD History: No Pertinent History Pyscho-Social History: Anxiety, Depression, Panic Disorder Reproductive Disorders: No Pertinent History Comment: C-Diff - Female History Are you now?: No - Past Surgical History Past Surgical History: Yes Neuro Surgical History: No Pertinent History Cardiac History: No Pertinent History Respiratory Surgery: No Pertinent History GI Surgical History: No Pertinent History Genitourinary Surgical Hx: No Pertinent History Musculskeletal Surgical Hx: Orthopedic Surgery Female Surgical History: Section, Hysterectomy Other Surgical History: right knee replacement, back surgery; rotator cuff, 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, left shoulder, facial surgery - Social History Smoking Status: Former smoker Exposure to second hand smoke: No Alcohol: None Drug Use: none - Physical Exam Vital Signs: Vital Signs - 24 hr Temp Pulse Resp BP Pulse Ox 08/03/22 07:55 98.2 F 102 H 19 142/68 93 L 08/03/22 04:00 97.7 F 96 H 18 106/73 95 08/02/22 23:44 98.9 F 102 H 20 135/63 92 L 08/02/22 19:02 96 08/02/22 18:49 96.9 F 90 24 143/65 90 L 08/02/22 18:00 88 16 138/65 94 L 08/02/22 17:10 90 18 140/66 94 L 08/02/22 16:12 88 18 139/97 98 08/02/22 15:31 97.2 F 81 18 128/65 96 General Appearance: no apparent distress Neurologic Exam: alert, oriented x 3 Respiratory Exam: normal breath sounds, lungs clear, No respiratory distress Cardiovascular Exam: regular rate/rhythm, normal heart sounds, normal peripheral pulses Gastrointestinal/Abdomen Exam: soft, normal bowel sounds, tenderness, No guarding, No rebound Extremity Exam: normal inspection, normal range of motion, pelvis stable Skin Exam: normal color, warm, dry, No rash Results - Labs Lab/Micro Results: Lab Results-Last 24 Hours 08/02/22 08/02/22 08/02/22 Range/Units 15:35 15:35 15:35 WBC 11.5 H (4.0-10.5) x10^3/uL RBC 3.74 L (4.1-5.4) x10^6/uL Hgb 8.5 L (12.0-16.0) g/dL Hct 29.8 L (35-47) % MCV 79.7 (78-100) fL MCH 22.7 L (26-32) pg MCHC 28.5 L (32-36) g/dL RDW 16.6 H (11.5-14.0) % Plt Count 346 (150-450) x10^3/uL MPV 9.9 (7.5-11.0) fL Gran % 74.8 H (36.0-66.0) % Immature Gran % (Auto) 0.7 H (0.00-0.4) % Nucleat RBC Rel Count 0.0 (0.00-0.1) % Eos # (Auto) 0.12 (0-0.5) x10^3/uL Immature Gran # (Auto) 0.08 H (0.00-0.03) x10^3u/L Absolute Lymphs (auto) 1.01 (1.0-4.6) x10^3/uL Absolute Monos (auto) 1.66 H (0.0-1.3) x10^3/uL Absolute Nucleated RBC 0.00 (0.00-0.01) x10^3u/L Lymphocytes % 8.8 L (24.0-44.0) % Monocytes % 14.4 H (0.0-12.0) % Eosinophils % 1.0 (0.00-5.0) % Basophils % 0.3 (0.0-0.4) % Absolute Granulocytes 8.61 H (1.4-6.9) x10^3/uL Basophils # 0.04 (0-0.4) x10^3/uL Sodium 131 L (137-145) mmol/L Potassium 4.0 (3.5-5.1) mmol/L Chloride 99 (98-107) mmol/L Carbon Dioxide 21 L (22-30) mmol/L Anion Gap 14.5 (5-15) MEQ/L BUN 16 (7-17) mg/dL Creatinine 1.03 (0.52-1.04) mg/dL Estimated GFR 55.4 ML/MIN Glucose 105 (74-106) mg/dL Lactic Acid (0.4-2.0) Calcium 8.6 (8.4-10.2) mg/dL Total Bilirubin 0.50 (0.2-1.3) mg/dL AST 18 (14-36) U/L ALT 13 (0-35) U/L Alkaline Phosphatase 84 (38-126) U/L Troponin I < 0.012 (0.000-0.034) ng/mL Serum Total Protein 6.6 (6.3-8.2) g/dL Albumin 3.7 (3.5-5.0) g/dL Amylase 35 (30-110) U/L Lipase 40 (23-300) U/L Urinalys Dipstick Clnc Urine Color (YELLOW) Urine Appearance (CLEAR) Urine pH (5-6) Ur Specific [place] (1.005-1.025) POC Urine Protein Conf (Negative) Urine Ketones (NEGATIVE) Urine Nitrite (NEGATIVE) Urine Bilirubin (NEGATIVE) Urine Urobilinogen (0-1) mg/dL Urine Leukocytes (NEGATIVE) Urine WBC (Auto) (0-5) /HPF Urine RBC (Auto) (0-2) /HPF Urine RBC (0-5) Alan/ul Ur Culture Indicated? Urine Glucose (NEGATIVE) mg/dL Influenza Type A Ag (NEGATIVE) Influenza Type B Ag (NEGATIVE) RSV (PCR) (Negative) SARS-CoV-2 (PCR) (NEGATIVE) Slides for Path Review YES 08/02/22 08/02/22 08/02/22 Range/Units 15:37 15:40 20:11 WBC (4.0-10.5) x10^3/uL RBC (4.1-5.4) x10^6/uL Hgb (12.0-16.0) g/dL Hct (35-47) % MCV (78-100) fL MCH (26-32) pg MCHC (32-36) g/dL RDW (11.5-14.0) % Plt Count (150-450) x10^3/uL MPV (7.5-11.0) fL Gran % (36.0-66.0) % Immature Gran % (Auto) (0.00-0.4) % Nucleat RBC Rel Count (0.00-0.1) % Eos # (Auto) (0-0.5) x10^3/uL Immature Gran # (Auto) (0.00-0.03) x10^3u/L Absolute Lymphs (auto) (1.0-4.6) x10^3/uL Absolute Monos (auto) (0.0-1.3) x10^3/uL Absolute Nucleated RBC (0.00-0.01) x10^3u/L Lymphocytes % (24.0-44.0) % Monocytes % (0.0-12.0) % Eosinophils % (0.00-5.0) % Basophils % (0.0-0.4) % Absolute Granulocytes (1.4-6.9) x10^3/uL Basophils # (0-0.4) x10^3/uL Sodium (137-145) mmol/L Potassium (3.5-5.1) mmol/L Chloride (98-107) mmol/L Carbon Dioxide (22-30) mmol/L Anion Gap (5-15) MEQ/L BUN (7-17) mg/dL Creatinine (0.52-1.04) mg/dL Estimated GFR ML/MIN Glucose (74-106) mg/dL Lactic Acid 1.9 (0.4-2.0) Calcium (8.4-10.2) mg/dL Total Bilirubin (0.2-1.3) mg/dL AST (14-36) U/L ALT (0-35) U/L Alkaline Phosphatase (38-126) U/L Troponin I < 0.012 (0.000-0.034) ng/mL Serum Total Protein (6.3-8.2) g/dL Albumin (3.5-5.0) g/dL Amylase (30-110) U/L Lipase (23-300) U/L Urinalys Dipstick Clnc MAIN LAB Urine Color YELLOW (YELLOW) Urine Appearance CLEAR (CLEAR) Urine pH 5.5 (5-6) Ur Specific [place] 1.010 (1.005-1.025) POC Urine Protein Conf NEGATIVE (Negative) Urine Ketones NEGATIVE (NEGATIVE) Urine Nitrite NEGATIVE (NEGATIVE) Urine Bilirubin NEGATIVE (NEGATIVE) Urine Urobilinogen 0.2 (0-1) mg/dL Urine Leukocytes NEGATIVE (NEGATIVE) Urine WBC (Auto) NONE (0-5) /HPF Urine RBC (Auto) NONE (0-2) /HPF Urine RBC NEGATIVE (0-5) Alan/ul Ur Culture Indicated? NO Urine Glucose NEGATIVE (NEGATIVE) mg/dL Influenza Type A Ag (NEGATIVE) Influenza Type B Ag (NEGATIVE) RSV (PCR) (Negative) SARS-CoV-2 (PCR) (NEGATIVE) Slides for Path Review 08/02/22 08/02/22 08/03/22 Range/Units 23:30 Unknown 04:40 WBC 6.4 (4.0-10.5) x10^3/uL RBC 3.08 L (4.1-5.4) x10^6/uL Hgb 7.0 L (12.0-16.0) g/dL Hct 24.2 L (35-47) % MCV 78.6 (78-100) fL MCH 22.7 L (26-32) pg MCHC 28.9 L (32-36) g/dL RDW 16.3 H (11.5-14.0) % Plt Count 238 (150-450) x10^3/uL MPV 9.4 (7.5-11.0) fL Gran % 58.5 (36.0-66.0) % Immature Gran % (Auto) 0.9 H (0.00-0.4) % Nucleat RBC Rel Count 0.0 (0.00-0.1) % Eos # (Auto) 0.13 (0-0.5) x10^3/uL Immature Gran # (Auto) 0.06 H (0.00-0.03) x10^3u/L Absolute Lymphs (auto) 1.02 (1.0-4.6) x10^3/uL Absolute Monos (auto) 1.42 H (0.0-1.3) x10^3/uL Absolute Nucleated RBC 0.00 (0.00-0.01) x10^3u/L Lymphocytes % 15.9 L (24.0-44.0) % Monocytes % 22.2 H (0.0-12.0) % Eosinophils % 2.0 (0.00-5.0) % Basophils % 0.5 (0.0-0.4) % Absolute Granulocytes 3.74 (1.4-6.9) x10^3/uL Basophils # 0.03 (0-0.4) x10^3/uL Sodium (137-145) mmol/L Potassium (3.5-5.1) mmol/L Chloride (98-107) mmol/L Carbon Dioxide (22-30) mmol/L Anion Gap (5-15) MEQ/L BUN (7-17) mg/dL Creatinine (0.52-1.04) mg/dL Estimated GFR ML/MIN Glucose (74-106) mg/dL Lactic Acid (0.4-2.0) Calcium (8.4-10.2) mg/dL Total Bilirubin (0.2-1.3) mg/dL AST (14-36) U/L ALT (0-35) U/L Alkaline Phosphatase (38-126) U/L Troponin I < 0.012 (0.000-0.034) ng/mL Serum Total Protein (6.3-8.2) g/dL Albumin (3.5-5.0) g/dL Amylase (30-110) U/L Lipase (23-300) U/L Urinalys Dipstick Clnc Urine Color (YELLOW) Urine Appearance (CLEAR) Urine pH (5-6) Ur Specific [place] (1.005-1.025) POC Urine Protein Conf (Negative) Urine Ketones (NEGATIVE) Urine Nitrite (NEGATIVE) Urine Bilirubin (NEGATIVE) Urine Urobilinogen (0-1) mg/dL Urine Leukocytes (NEGATIVE) Urine WBC (Auto) (0-5) /HPF Urine RBC (Auto) (0-2) /HPF Urine RBC (0-5) Alan/ul Ur Culture Indicated? Urine Glucose (NEGATIVE) mg/dL Influenza Type A Ag NEGATIVE (NEGATIVE) Influenza Type B Ag NEGATIVE (NEGATIVE) RSV (PCR) NEGATIVE (Negative) SARS-CoV-2 (PCR) NEGATIVE (NEGATIVE) Slides for Path Review YES 08/03/22 Range/Units 04:40 WBC (4.0-10.5) x10^3/uL RBC (4.1-5.4) x10^6/uL Hgb (12.0-16.0) g/dL Hct (35-47) % MCV (78-100) fL MCH (26-32) pg MCHC (32-36) g/dL RDW (11.5-14.0) % Plt Count (150-450) x10^3/uL MPV (7.5-11.0) fL Gran % (36.0-66.0) % Immature Gran % (Auto) (0.00-0.4) % Nucleat RBC Rel Count (0.00-0.1) % Eos # (Auto) (0-0.5) x10^3/uL Immature Gran # (Auto) (0.00-0.03) x10^3u/L Absolute Lymphs (auto) (1.0-4.6) x10^3/uL Absolute Monos (auto) (0.0-1.3) x10^3/uL Absolute Nucleated RBC (0.00-0.01) x10^3u/L Lymphocytes % (24.0-44.0) % Monocytes % (0.0-12.0) % Eosinophils % (0.00-5.0) % Basophils % (0.0-0.4) % Absolute Granulocytes (1.4-6.9) x10^3/uL Basophils # (0-0.4) x10^3/uL Sodium 132 L (137-145) mmol/L Potassium 3.8 (3.5-5.1) mmol/L Chloride 103 (98-107) mmol/L Carbon Dioxide 22 (22-30) mmol/L Anion Gap 11.0 (5-15) MEQ/L BUN 12 (7-17) mg/dL Creatinine 0.77 (0.52-1.04) mg/dL Estimated GFR > 60.0 ML/MIN Glucose 100 (74-106) mg/dL Lactic Acid (0.4-2.0) Calcium 8.1 L (8.4-10.2) mg/dL Total Bilirubin 0.30 (0.2-1.3) mg/dL AST 13 L (14-36) U/L ALT 10 (0-35) U/L Alkaline Phosphatase 64 (38-126) U/L Troponin I (0.000-0.034) ng/mL Serum Total Protein 5.6 L (6.3-8.2) g/dL Albumin 3.0 L (3.5-5.0) g/dL Amylase (30-110) U/L Lipase (23-300) U/L Urinalys Dipstick Clnc Urine Color (YELLOW) Urine Appearance (CLEAR) Urine pH (5-6) Ur Specific [place] (1.005-1.025) POC Urine Protein Conf (Negative) Urine Ketones (NEGATIVE) Urine Nitrite (NEGATIVE) Urine Bilirubin (NEGATIVE) Urine Urobilinogen (0-1) mg/dL Urine Leukocytes (NEGATIVE) Urine WBC (Auto) (0-5) /HPF Urine RBC (Auto) (0-2) /HPF Urine RBC (0-5) Alan/ul Ur Culture Indicated? Urine Glucose (NEGATIVE) mg/dL Influenza Type A Ag (NEGATIVE) Influenza Type B Ag (NEGATIVE) RSV (PCR) (Negative) SARS-CoV-2 (PCR) (NEGATIVE) Slides for Path Review - Radiology Impressions Radiology Exams & Impressions: Radiology Procedures Category Date Time Status ABDOMEN AND PELVIS W/0 CONTRAS [CT] Stat Exams 08/02/22 16:39 Completed Assessment/Plan (1) Colitis Current Visit: Yes Status: Acute Assessment & Plan: continue levaquin and flagyl, colonoscopy within the last [address] Rudd, will request those records. stool culture and c diff ordered. Code(s): K52.9 - NONINFECTIVE GASTROENTERITIS AND COLITIS, UNSPECIFIED (2) Anemia Current Visit: Yes Status: Acute Assessment & Plan: 2 units PRBCs ordered for transfusion. Code(s): D64.9 - ANEMIA, UNSPECIFIED
[2022-08-03] MEDS ORDERED: NON-FORMULARY ITEM (Omeprazole [Omeprazole] 40 MG Capsule.Dr) PO SCH (10:00)
[2022-08-03] MEDS ORDERED: Levofloxacin 500MG/100ML D5W 500 MG/100 ML BAG IV SCH (10:00)
[2022-08-03] MEDS ORDERED: NON-FORMULARY ITEM (Venlafaxine Hcl 75 MG Cap) PO SCH (10:00)
[2022-08-03] MEDS ORDERED: NON-FORMULARY ITEM (Amlodipine Besylate 10 Mg [Norvasc 10 Mg] 10 MG Tablet) PO SCH (10:00)
[2022-08-03] MEDS: Zestril 20 MG PO SCH ×2 (10:03→21:39)
[2022-08-03] MEDS: NORVASC 5 MG PO SCH ×2 (10:03→21:39)
[2022-08-03] MEDS: Toprol-Xl 25MG Tablets PO SCH ×2 (10:03→21:39)
[2022-08-03] MEDS: Protonix 40MG Tablet PO SCH ×2 (10:03→21:39)
[2022-08-03] MEDS: Effexor XR 75 MG PO SCH (10:03)
[2022-08-03 10:43] LABS: ABO TYPING O; Antibody Screen NEGATIVE (NEGATIVE); CROSS MATCH (PRBC) COMPATIBLE (COMPATIBLE); RH TYPING POSITIVE
[2022-08-03 12:43] LABS: 027 TOX PROD PRESUMPTIVE NEGATIVE (NEGATIVE); TOXIGENIC C. DIFF ORG NEGATIVE (NEGATIVE)
[2022-08-03 18:24] LABS: Hematocrit 35.8 % (35-47); Hemoglobin 10.3 g/dL (12.0-16.0)
[2022-08-03] MEDS: Levofloxacin 500MG/100ML D5W 500 MG/100 ML BAG IV SCH (21:38)
[2022-08-04] MEDS: xanAX 0.5 MG PO PRN ×2 (00:32→21:36)
[2022-08-04] MEDS: Sodium Chloride 0.9% 1000 ML 1,000 ML IV SCH ×2 (00:32→20:13)
[2022-08-04 05:48] LABS: Absolute Neutrophil Ct (ANC) 2.82 x10^3/uL (1.4-6.9); Basophil (Absolute #) 0.04 x10^3/uL (0-0.4); Eosinophil % 5.6 % (0.00-5.0); Eosinophil (Absolute #) 0.31 x10^3/uL (0-0.5); Hematocrit 31.6 % (35-47); Hemoglobin 9.7 g/dL (12.0-16.0); Lymphocyte (Absolute #) 1.19 x10^3/uL (1.0-4.6); Lymphocytes % 21.4 % (24.0-44.0); Mean Cell Volume 78.8 fL (78-100); Mean Corpuscular Hemoglobin 24.2 pg (26-32); Mean Corpuscular Hgb Concent. 30.7 g/dL (32-36); Mean Platelet Volume 9.6 fL (7.5-11.0); Monocyte (Absolute #) 1.06 x10^3/uL (0.0-1.3); Monocytes % 19.1 % (0.0-12.0); Neutrophil % 50.9 % (36.0-66.0); Platelet Count 258 x10^3/uL (150-450); Red Blood Count 4.01 x10^6/uL (4.1-5.4); Red Cell Distribution Width 16.6 % (11.5-14.0); White Blood Count 5.6 x10^3/uL (4.0-10.5)
[2022-08-04] MEDS: FLAGYL 500 MG IVPB 500 MG/100 ML BAG IV SCH ×3 (06:04→21:29)
[2022-08-04 06:50] LABS: ALBUMIN 3.1 g/dL (3.5-5.0); ALKALINE PHOSPHATASE 67 U/L (38-126); ANION GAP 9.6 MEQ/L (5-15); BLOOD UREA NITROGEN 7 mg/dL (7-17); CHLORIDE 102 mmol/L (98-107); Calcium 8.5 mg/dL (8.4-10.2); Carbon Dioxide 27 mmol/L (22-30); Creatinine 1 0.61 mg/dL (0.52-1.04); EST GLOMERULAR FILTRATION RATE > 60.0 ML/MIN; Glucose 104 mg/dL (74-106); MAGNESIUM 1.7 mg/dL (1.6-2.3); Potassium 3.6 mmol/L (3.5-5.1); SGOT/AST 14 U/L (14-36); SGPT/ALT 11 U/L (0-35); SODIUM 136 mmol/L (137-145); Total Protein 5.8 g/dL (6.3-8.2)
--- NOTE | 2022-08-04 09:07 | PCM.NOTE ---
Date and Time: 08/04/22904 Subjective Assessment: patient reports some improvement in her symptoms. still had some diarrhea yesterday. Objective Exam General Appearance: no apparent distress, alert Respiratory Exam: normal breath sounds, lungs clear, No respiratory distress Cardiovascular Exam: regular rate/rhythm, normal heart sounds Gastrointestinal/Abdomen Exam: soft, tenderness (mild right abdomen) Extremity Exam: normal inspection, normal range of motion OBJECTIVE DATA Vital Signs: Vital Signs - 24 hr Temp Pulse Resp BP Pulse Ox 08/04/22 07:48 96.9 F 91 H 21 148/71 96 08/04/22 07:34 96 08/04/22 04:00 97.8 F 84 24 179/75 95 08/04/22 00:00 97.7 F 86 20 183/74 96 08/03/22 19:26 98.0 F 89 24 168/78 98 08/03/22 19:07 95 08/03/22 16:00 97.3 F 89 19 146/66 96 08/03/22 12:00 97.8 F 85 18 143/65 95 Pain Assessment - Last Documented Pain Intensity 3 Pain Scale Used [facility] Intake and Output: Intake & Output 08/01/22 08/02/22 08/03/22 08/04/22 11:59 11:59 11:59 11:59 Intake Total 1428 2589 Output Total 1000 2100 Balance 428 489 Weight 73.5 kg Lab Results: Lab Results-Last 24 Hours 08/02/22 08/03/22 08/03/22 Range/Units Unknown 09:17 09:17 WBC (4.0-10.5) x10^3/uL RBC (4.1-5.4) x10^6/uL Hgb (12.0-16.0) g/dL Hct (35-47) % MCV (78-100) fL MCH (26-32) pg MCHC (32-36) g/dL RDW (11.5-14.0) % Plt Count (150-450) x10^3/uL MPV (7.5-11.0) fL Gran % (36.0-66.0) % Immature Gran % (Auto) (0.00-0.4) % Nucleat RBC Rel Count (0.00-0.1) % Eos # (Auto) (0-0.5) x10^3/uL Immature Gran # (Auto) (0.00-0.03) x10^3u/L Absolute Lymphs (auto) (1.0-4.6) x10^3/uL Absolute Monos (auto) (0.0-1.3) x10^3/uL Absolute Nucleated RBC (0.00-0.01) x10^3u/L Lymphocytes % (24.0-44.0) % Monocytes % (0.0-12.0) % Eosinophils % (0.00-5.0) % Basophils % (0.0-0.4) % Absolute Granulocytes (1.4-6.9) x10^3/uL Basophils # (0-0.4) x10^3/uL Sodium (137-145) mmol/L Potassium (3.5-5.1) mmol/L Chloride (98-107) mmol/L Carbon Dioxide (22-30) mmol/L Anion Gap (5-15) MEQ/L BUN (7-17) mg/dL Creatinine (0.52-1.04) mg/dL Estimated GFR ML/MIN Glucose (74-106) mg/dL Calcium (8.4-10.2) mg/dL Magnesium (1.6-2.3) mg/dL Total Bilirubin (0.2-1.3) mg/dL AST (14-36) U/L ALT (0-35) U/L Alkaline Phosphatase (38-126) U/L Serum Total Protein (6.3-8.2) g/dL Albumin (3.5-5.0) g/dL Stool Occult Blood NEGATIVE (NEGATIVE) C. difficile Screen (NEGATIVE) C.difficile 027-NAP1-B1 (NEGATIVE) ABO Group O Rh Factor POSITIVE Antibody Screen NEGATIVE (NEGATIVE) Crossmatch COMPATIBLE (COMPATIBLE) 08/03/22 08/03/22 08/03/22 Range/Units 09:17 10:00 18:20 WBC (4.0-10.5) x10^3/uL RBC (4.1-5.4) x10^6/uL Hgb 10.3 L D (12.0-16.0) g/dL Hct 35.8 (35-47) % MCV (78-100) fL MCH (26-32) pg MCHC (32-36) g/dL RDW (11.5-14.0) % Plt Count (150-450) x10^3/uL MPV (7.5-11.0) fL Gran % (36.0-66.0) % Immature Gran % (Auto) (0.00-0.4) % Nucleat RBC Rel Count (0.00-0.1) % Eos # (Auto) (0-0.5) x10^3/uL Immature Gran # (Auto) (0.00-0.03) x10^3u/L Absolute Lymphs (auto) (1.0-4.6) x10^3/uL Absolute Monos (auto) (0.0-1.3) x10^3/uL Absolute Nucleated RBC (0.00-0.01) x10^3u/L Lymphocytes % (24.0-44.0) % Monocytes % (0.0-12.0) % Eosinophils % (0.00-5.0) % Basophils % (0.0-0.4) % Absolute Granulocytes (1.4-6.9) x10^3/uL Basophils # (0-0.4) x10^3/uL Sodium (137-145) mmol/L Potassium (3.5-5.1) mmol/L Chloride (98-107) mmol/L Carbon Dioxide (22-30) mmol/L Anion Gap (5-15) MEQ/L BUN (7-17) mg/dL Creatinine (0.52-1.04) mg/dL Estimated GFR ML/MIN Glucose (74-106) mg/dL Calcium (8.4-10.2) mg/dL Magnesium (1.6-2.3) mg/dL Total Bilirubin (0.2-1.3) mg/dL AST (14-36) U/L ALT (0-35) U/L Alkaline Phosphatase (38-126) U/L Serum Total Protein (6.3-8.2) g/dL Albumin (3.5-5.0) g/dL Stool Occult Blood (NEGATIVE) C. difficile Screen NEGATIVE (NEGATIVE) C.difficile 027-NAP1-B1 PRESUMPTIVE NEGATIVE (NEGATIVE) ABO Group Rh Factor Antibody Screen (NEGATIVE) Crossmatch COMPATIBLE (COMPATIBLE) 08/04/22 08/04/22 Range/Units 04:40 04:40 WBC 5.6 (4.0-10.5) x10^3/uL RBC 4.01 L (4.1-5.4) x10^6/uL Hgb 9.7 L (12.0-16.0) g/dL Hct 31.6 L (35-47) % MCV 78.8 (78-100) fL MCH 24.2 L (26-32) pg MCHC 30.7 L (32-36) g/dL RDW 16.6 H (11.5-14.0) % Plt Count 258 (150-450) x10^3/uL MPV 9.6 (7.5-11.0) fL Gran % 50.9 (36.0-66.0) % Immature Gran % (Auto) 2.3 H (0.00-0.4) % Nucleat RBC Rel Count 0.0 (0.00-0.1) % Eos # (Auto) 0.31 (0-0.5) x10^3/uL Immature Gran # (Auto) 0.13 H (0.00-0.03) x10^3u/L Absolute Lymphs (auto) 1.19 (1.0-4.6) x10^3/uL Absolute Monos (auto) 1.06 (0.0-1.3) x10^3/uL Absolute Nucleated RBC 0.00 (0.00-0.01) x10^3u/L Lymphocytes % 21.4 L (24.0-44.0) % Monocytes % 19.1 H (0.0-12.0) % Eosinophils % 5.6 H (0.00-5.0) % Basophils % 0.7 (0.0-0.4) % Absolute Granulocytes 2.82 (1.4-6.9) x10^3/uL Basophils # 0.04 (0-0.4) x10^3/uL Sodium 136 L (137-145) mmol/L Potassium 3.6 (3.5-5.1) mmol/L Chloride 102 (98-107) mmol/L Carbon Dioxide 27 (22-30) mmol/L Anion Gap 9.6 (5-15) MEQ/L BUN 7 (7-17) mg/dL Creatinine 0.61 (0.52-1.04) mg/dL Estimated GFR > 60.0 ML/MIN Glucose 104 (74-106) mg/dL Calcium 8.5 (8.4-10.2) mg/dL Magnesium 1.7 (1.6-2.3) mg/dL Total Bilirubin 0.50 (0.2-1.3) mg/dL AST 14 (14-36) U/L ALT 11 (0-35) U/L Alkaline Phosphatase 67 (38-126) U/L Serum Total Protein 5.8 L (6.3-8.2) g/dL Albumin 3.1 L (3.5-5.0) g/dL Stool Occult Blood (NEGATIVE) C. difficile Screen (NEGATIVE) C.difficile 027-NAP1-B1 (NEGATIVE) ABO Group Rh Factor Antibody Screen (NEGATIVE) Crossmatch (COMPATIBLE) Radiology Exams: Radiology Procedures Category Date Time Status ABDOMEN AND PELVIS W/0 CONTRAS [CT] Stat Exams 08/02/22 16:39 Completed Assessment/Plan (1) Colitis Current Visit: Yes Status: Acute Assessment & Plan: continue levaquin and flagyl, mild improvement at this time Code(s): K52.9 - NONINFECTIVE GASTROENTERITIS AND COLITIS, UNSPECIFIED (2) Anemia Current Visit: Yes Status: Acute Code(s): D64.9 - ANEMIA, UNSPECIFIED
[2022-08-04] MEDS: Effexor XR 75 MG PO SCH (10:56)
[2022-08-04] MEDS: Protonix 40MG Tablet PO SCH ×2 (10:56→21:30)
[2022-08-04] MEDS: Zestril 20 MG PO SCH ×2 (10:56→21:30)
[2022-08-04] MEDS: NORVASC 5 MG PO SCH ×2 (10:56→21:30)
[2022-08-04] MEDS: Toprol-Xl 25MG Tablets PO SCH ×2 (10:56→21:30)
[2022-08-04] MEDS: SUBLIMAZE 100 MCG/2 ML IV PRN (15:07)
[2022-08-04] MEDS: Levofloxacin 500MG/100ML D5W 500 MG/100 ML BAG IV SCH (23:00)
[2022-08-05] MEDS: FLAGYL 500 MG IVPB 500 MG/100 ML BAG IV SCH ×3 (05:15→21:35)
--- NOTE | 2022-08-05 08:38 | PCM.NOTE ---
Date and Time: 08/05/22 0837 Subjective Assessment: doing better today - Review of Systems Constitutional: No Fever, No Chills Eyes: No Symptoms Ears, Nose, & Throat: No Symptoms Respiratory: No Cough, No Short Of Breath Cardiac: No Chest Pain, No Edema, No Syncope Abdominal/Gastrointestinal: No Abdominal Pain, No Nausea, No Vomiting, No Diarrhea Genitourinary Symptoms: No Dysuria Musculoskeletal: No Back Pain, No Neck Pain Skin: No Rash Neurological: No Dizziness, No Focal Weakness, No Sensory Changes Psychological: No Symptoms Endocrine: No Symptoms Hematologic/Lymphatic: No Symptoms Immunological/Allergic: No Symptoms Objective Exam General Appearance: no apparent distress, alert Neurologic Exam: alert, oriented x 3, cooperative, normal mood/affect, nml cerebellar function, sensation nml, No motor deficits Skin Exam: normal color, warm, dry Eye Exam: PERRL, EOMI, eyes nml inspection Ears, Nose, Throat Exam: normal ENT inspection, pharynx normal, moist mucous membranes Neck Exam: normal inspection, non-tender, supple, full range of motion Respiratory Exam: normal breath sounds, lungs clear, No respiratory distress Cardiovascular Exam: regular rate/rhythm, normal heart sounds Gastrointestinal/Abdomen Exam: soft, No tenderness, No mass Extremity Exam: normal inspection, normal range of motion Back Exam: normal inspection, normal range of motion, No CVA tenderness, No vertebral tenderness Pelvic Exam: deferred Rectal Exam: deferred OBJECTIVE DATA Vital Signs: Vital Signs - 24 hr Temp Pulse Resp BP Pulse Ox 08/05/22 07:34 97.1 F 87 18 163/70 94 L 08/05/22 04:00 97.1 F 83 18 125/74 92 L 08/05/22 00:00 98.2 F 85 20 162/72 93 L 08/04/22 20:03 97 08/04/22 19:59 97.5 F 82 22 142/66 93 L 08/04/22 16:00 96.9 F 81 21 142/67 96 08/04/22 12:20 94 L 08/04/22 12:00 97.3 F 80 19 146/98 96 08/04/22 11:45 96 Pain Assessment - Last Documented Pain Intensity 0 Pain Scale Used FLACC Intake and Output: Intake & Output 08/02/22 08/03/22 08/04/22 08/05/22 11:59 11:59 11:59 11:59 Intake Total 1428 2589 1602 Output Total 1000 2100 600 Balance 650 429 4496 Weight 73.5 kg 73.5 kg Multi-Disciplinary Progress Notes: Multi-Disciplinary Progress Notes 08/04/22 12:14 Respiratory Note by Pamela Trevino The patient's O2 sat is 96% on 2lpm at rest. O2 taken off patient and O2 sat on Room Air is 88% at rest. Placed patient back on O2 at 1 lpm per NC and O2 sat increased to 94% on 1 lpm at rest. Initialized on 08/04/22 12:14 - END OF NOTE 08/04/22 10:47 Case Management Note by Yojana March S/W PATIENT-SHE CONTINUES TO DENY ANY NEW NEEDS AT TIME OF DC. SHE REPORTS HER DAUGHTER IS ABLE TO HELP HER AT TIME OF DC. PATIENT CURRENTLY ON 2L/NC- SHE DOES NOT WEAR THIS AT HOME- NOR WILL SHE HAVE CURRENT QUALIFIER. IF PATIENT STILL NEED OXYGEN AT DC- SHE WILL NEED QUALIFIED AND SET UP. OXYGEN ORDER FORM PLACED ON CHART JUST IN CASE. Initialized on 08/04/22 10:47 - END OF NOTE Assessment/Plan (1) Colitis Current Visit: Yes Status: Acute Assessment & Plan: improving. Code(s): K52.9 - NONINFECTIVE GASTROENTERITIS AND COLITIS, UNSPECIFIED (2) Essential hypertension Current Visit: Yes Status: Chronic Code(s): I10 - ESSENTIAL (PRIMARY) HYPERTENSION (3) GERD (gastroesophageal reflux disease) Current Visit: Yes Status: Chronic Qualifiers: Esophagitis presence: without esophagitis Qualified Code(s): K21.9 - Gastro-esophageal reflux disease without esophagitis Code(s): K21.9 - GASTRO-ESOPHAGEAL REFLUX DISEASE WITHOUT ESOPHAGITIS (4) IBS (irritable bowel syndrome) Current Visit: Yes Status: Chronic Qualifiers: Irritable bowel syndrome type: with diarrhea Qualified Code(s): K58.0 - Irritable bowel syndrome with diarrhea
[2022-08-05] MEDS: Effexor XR 75 MG PO SCH (09:42)
[2022-08-05] MEDS: NORVASC 5 MG PO SCH ×2 (09:42→21:35)
[2022-08-05] MEDS: Zestril 20 MG PO SCH ×2 (09:42→21:35)
[2022-08-05] MEDS: Protonix 40MG Tablet PO SCH ×2 (09:42→21:35)
[2022-08-05] MEDS: Toprol-Xl 25MG Tablets PO SCH ×2 (09:42→21:35)
[2022-08-05] MEDS: TYLENOL 325 MG PO PRN ×2 (10:07→20:03)
[2022-08-05] MEDS: Sodium Chloride 0.9% 1000 ML 1,000 ML IV SCH (18:06)
[2022-08-05] MEDS: Levofloxacin 500MG/100ML D5W 500 MG/100 ML BAG IV SCH (22:23)
[2022-08-05] MEDS: xanAX 0.5 MG PO PRN (23:30)
[2022-08-06 05:45] LABS: Absolute Neutrophil Ct (ANC) 4.56 x10^3/uL (1.4-6.9); Basophil (Absolute #) 0.04 x10^3/uL (0-0.4); Eosinophil % 3.4 % (0.00-5.0); Eosinophil (Absolute #) 0.25 x10^3/uL (0-0.5); Hematocrit 35.2 % (35-47); Hemoglobin 10.4 g/dL (12.0-16.0); Lymphocyte (Absolute #) 1.23 x10^3/uL (1.0-4.6); Lymphocytes % 16.8 % (24.0-44.0); Mean Corpuscular Hemoglobin 23.6 pg (26-32); Mean Corpuscular Hgb Concent. 29.5 g/dL (32-36); Mean Platelet Volume 9.1 fL (7.5-11.0); Monocyte (Absolute #) 0.93 x10^3/uL (0.0-1.3); Monocytes % 12.7 % (0.0-12.0); Neutrophil % 62.6 % (36.0-66.0); Platelet Count 320 x10^3/uL (150-450); White Blood Count 7.3 x10^3/uL (4.0-10.5)
[2022-08-06] MEDS: FLAGYL 500 MG IVPB 500 MG/100 ML BAG IV SCH ×2 (05:48→13:18)
[2022-08-06 05:54] LABS: ALBUMIN 3.3 g/dL (3.5-5.0); ALKALINE PHOSPHATASE 62 U/L (38-126); ANION GAP 8.5 MEQ/L (5-15); BLOOD UREA NITROGEN 8 mg/dL (7-17); CHLORIDE 99 mmol/L (98-107); Calcium 8.4 mg/dL (8.4-10.2); Carbon Dioxide 30 mmol/L (22-30); EST GLOMERULAR FILTRATION RATE > 60.0 ML/MIN; Glucose 99 mg/dL (74-106); Potassium 3.2 mmol/L (3.5-5.1); SGOT/AST 16 U/L (14-36); SGPT/ALT 11 U/L (0-35); SODIUM 134 mmol/L (137-145); Total Protein 5.9 g/dL (6.3-8.2)
[2022-08-06] MEDS: Effexor XR 75 MG PO SCH (09:45)
[2022-08-06] MEDS: Zestril 20 MG PO SCH (09:45)
[2022-08-06] MEDS: Toprol-Xl 25MG Tablets PO SCH (09:45)
[2022-08-06] MEDS: Protonix 40MG Tablet PO SCH (09:45)
[2022-08-06] MEDS: NORVASC 5 MG PO SCH (09:45)
[2022-08-06 12:05] VITALS: BP 135/76; PULSE 85; O2SAT 93
[2022-08-06] MEDS ORDERED: Klor Con PO ONE (13:06)
[2022-08-06] MEDS: TYLENOL 325 MG PO PRN (13:17)
--- NOTE | 2022-08-06 13:46 | PCM.DS ---
Discharge Summary Date of Admission: 08/03/22 09:01 Admitting Physician: DANITZA QUINTANILLA Primary Care Provider: QUIQUE FOSS Allergies Allergies No Known Drug Allergies Allergy (Verified 08/02/22 15:29) Hospital Summary - Hospital Course Hospital Course: Chief Complaint Diagnosis Colitis Allergies Allergy/AdvReac Type Severity Reaction Status Date / Time No Known Drug Allergies Allergy Verified 08/02/22 15:29 Vital Signs (Last 24 hours) Temp Pulse Resp BP Pulse Ox 08/06/22 12:00 97.8 F 85 16 135/76 93 L 08/06/22 11:24 94 L 08/06/22 08:00 97.8 F 91 H 18 178/85 95 08/06/22 04:00 97.7 F 97 H 20 146/69 95 08/06/22 00:00 97.1 F 88 18 132/77 95 08/05/22 20:07 92 L 08/05/22 19:58 98.0 F 86 20 159/67 96 08/05/22 16:00 97.3 F 88 18 141/64 91 L 08/05/22 14:10 94 L Home Medications Medication Instructions Recorded Confirmed Last Taken Type Metronidazole 500 mg [Flagyl 500 mg PO TID 5 Days #15 tablet 08/06/22 Unknown Rx 500 MG] Current Medications Generic Name Dose Route Start Last Admin Trade Name Freq PRN Reason Stop Dose Admin Acetaminophen 650 mg 08/05/22 09:48 08/06/22 13:17 Acetaminophen 325 Mg Tablet PO 09/04/22 09:47 650 mg Q4H PRN PRN Administration PAIN AND/OR FEVER Alprazolam 0.5 mg 08/03/22 09:46 08/05/22 23:30 Alprazolam 0.5 Mg Tablet PO 09/02/22 09:45 0.5 mg TID PRN PRN Administration ANXIETY Amlodipine Besylate 5 mg 08/03/22 10:00 08/06/22 09:45 Amlodipine Besylate 5 Mg Tablet PO 09/02/22 09:59 5 mg BID LENNIE Administration Fentanyl Citrate 25 mcg 08/02/22 18:14 08/04/22 15:07 Fentanyl Citrate 100 Mcg/2 Ml* Vial IV 08/07/22 18:13 25 mcg Q4H PRN PRN Administration SEVERE PAIN Sodium Chloride 1,000 mls @ 50 mls/hr 08/02/22 18:15 08/05/22 18:06 Sodium Chloride 0.9% 1000 Ml IV 09/01/22 18:14 100 mls/hr .Q20H LENNIE Administration Metronidazole 500 mg in 100 mls @ 200 mls/hr 08/02/22 22:00 08/06/22 13:18 Flagyl 500 Mg Ivpb IV 09/01/22 21:59 200 mls/hr Q8HT LENNIE Administration Levofloxacin/Dextrose 500 mg in 100 mls @ 100 mls/hr 08/03/22 22:00 08/05/22 22:23 Levofloxacin 500mg/100ml D5w IV 09/02/22 21:59 100 mls/hr Q24H22 LENNIE Administration Lisinopril 20 mg 08/03/22 10:00 08/06/22 09:45 Lisinopril 20 Mg Tablet PO 09/02/22 09:59 20 mg BID LENNIE Administration Metoprolol Succinate 25 mg 08/03/22 10:00 08/06/22 09:45 Metoprolol Succinate 25 Mg Xl Tab PO 09/02/22 09:59 25 mg BID LENNIE Administration Ondansetron HCl 4 mg 08/02/22 18:09 08/06/22 08:02 Ondansetron Hcl 4 Mg/2 Ml Vial IV 09/01/22 18:08 4 mg Q6H PRN PRN Administration NAUSEA/VOMITING Pantoprazole Sodium 40 mg 08/03/22 10:00 08/06/22 09:45 Protonix (Pantoprazole) 40 Mg Tablet PO 09/02/22 09:59 40 mg BID LENNIE Administration Venlafaxine HCl 150 mg 08/03/22 10:00 08/06/22 09:45 Venlafaxine Hcl 75 Mg Extended Release Capsule PO 09/02/22 09:59 150 mg DAILY LENNIE Administration Discontinued Medications Generic Name Dose Route Start Last Admin Trade Name Freq PRN Reason Stop Dose Admin Acetaminophen 650 mg 08/03/22 08:59 08/03/22 10:43 Acetaminophen 325 Mg Tablet PO 08/03/22 09:00 650 mg PRIOR TO BLOOD ONE Administration Diphenhydramine HCl 25 mg 08/03/22 08:59 08/03/22 10:43 Diphenhydramine Hcl 25 Mg Capsule PO 08/03/22 09:00 25 mg PRIOR TO BLOOD ONE Administration Fentanyl Citrate 25 mcg 08/02/22 16:18 08/02/22 16:20 Fentanyl Citrate 100 Mcg/2 Ml* Vial IV 08/02/22 16:19 25 mcg STAT ONE Administration Fentanyl Citrate Confirm 08/02/22 16:19 Fentanyl Citrate 100 Mcg/2 Ml* Vial Administered 08/02/22 16:20 Dose 100 mcg .ROUTE .STK-MED ONE Sodium Chloride 1,000 mls @ 999 mls/hr 08/02/22 15:17 08/02/22 16:40 Sodium Chloride 0.9% 1000 Ml IV 08/02/22 16:17 Infused .Q1H1M STA Infusion Sodium Chloride Confirm 08/02/22 15:38 Sodium Chloride 0.9% 1000 Ml Administered 08/02/22 15:39 Dose 1,000 mls @ ud .ROUTE .STK-MED ONE Levofloxacin/Dextrose 500 mg in 100 mls @ 100 mls/hr 08/03/22 10:00 08/02/22 19:49 Levofloxacin 500mg/100ml D5w IV 09/02/22 09:59 100 mls/hr Q24H10 LENNIE Administration Metronidazole 500 mg in 100 mls @ 200 mls/hr 08/02/22 18:12 08/02/22 18:14 Flagyl 500 Mg Ivpb IV 08/02/22 18:41 200 ml/hr STAT STA 200 mls/hr Administration Levofloxacin/Dextrose Confirm 08/02/22 19:13 Levofloxacin 500mg/100ml D5w Administered 08/02/22 19:14 Dose 500 mg in 100 mls @ ud IV .STK-MED ONE Metronidazole Confirm 08/02/22 18:12 Flagyl 500 Mg Ivpb Administered 08/02/22 18:13 Dose 500 mg in 100 mls @ ud IV .STK-MED ONE Ondansetron HCl 4 mg 08/02/22 15:18 08/02/22 15:39 Ondansetron Hcl 4 Mg/2 Ml Vial IV 08/02/22 15:19 4 mg STAT ONE Administration Ondansetron HCl Confirm 08/02/22 15:37 Ondansetron Hcl 4 Mg/2 Ml Vial Administered 08/02/22 15:38 Dose 4 mg .ROUTE .STK-MED ONE Potassium Chloride 40 meq 08/06/22 13:06 Potassium Chloride Tab 10 Meq Tab PO 08/06/22 13:07 ONCE ONE Intake & Output (Last 24 hours) 08/04/22 08/05/22 08/06/22 08/07/22 11:59 11:59 11:59 11:59 Intake Total 2589 2322 1946 Output Total 2100 600 Balance 489 1722 1946 Weight 73.5 kg Laboratory Results (Last 24 hours) 08/06/22 08/06/22 05:35 05:35 WBC 7.3 RBC 4.40 Hgb 10.4 L Hct 35.2 MCV 80.0 MCH 23.6 L MCHC 29.5 L RDW 17.0 H Plt Count 320 MPV 9.1 Gran % 62.6 Immature Gran % (Auto) 4.0 H Nucleat RBC Rel Count 0.0 Eos # (Auto) 0.25 Immature Gran # (Auto) 0.29 H Absolute Lymphs (auto) 1.23 Absolute Monos (auto) 0.93 Absolute Nucleated RBC 0.00 Lymphocytes % 16.8 L Monocytes % 12.7 H Eosinophils % 3.4 Basophils % 0.5 Absolute Granulocytes 4.56 Basophils # 0.04 Sodium 134 L Potassium 3.2 L Chloride 99 Carbon Dioxide 30 Anion Gap 8.5 BUN 8 Creatinine 0.60 Estimated GFR > 60.0 Glucose 99 Calcium 8.4 Total Bilirubin 0.30 AST 16 ALT 11 Alkaline Phosphatase 62 Serum Total Protein 5.9 L Albumin 3.3 L Orders (Last 24 hours) Category Date Time Status Discharge Routine Discharge 08/06/22 Ordered CBC W DIFF AM.LAB Lab 08/06/22 05:35 Completed CMP AM.LAB Lab 08/06/22 05:35 Completed Potassium Chloride Tab* [Klor Con] Med 08/06/22 13:06 Discontinued 40 meq PO ONCE ONE Patient Care Notes (Last 24 hours) 08/06/22 13:28 Nursing Note by Dina Kee This nurse rounded with Dr. Villa. Ok to discharge patient home. Follow up with Marcella Gibbons this week. Give patient 40 meq of Potassium PO x one dose before leaving. Continue home medications. Patient advised by Dr. Villa to fol low high fiber diet, to take metamucil daily and to add a vitamin with iron daily. Prescription for Flagyl 500 mg po tid for 5 days. Initialized on 08/06/22 13:28 - END OF NOTE 08/05/22 14:16 Respiratory Note by Xin Flower Weaned O2. SpO2 on room air at rest 94%. Initialized on 08/05/22 14:16 - END OF NOTE - Vitals & Intake/Output Vital Signs: Vital Signs Temperature 97.8 F 08/06/22 12:00 Pulse Rate 85 08/06/22 12:00 Respiratory Rate 16 08/06/22 12:00 Blood Pressure 135/76 08/06/22 12:00 O2 Sat by Pulse Oximetry 93 L 08/06/22 12:00 Intake & Output: Intake & Output 08/04/22 08/05/22 08/06/22 08/07/22 11:59 11:59 11:59 11:59 Intake Total 2589 3842 1946 Output Total 2100 600 Balance 489 1722 1946 Weight 73.5 kg - Lab Result Diagrams: 08/06/22 05:35 08/06/22 05:35 Lab Results-Last 24 Hrs: Lab Results-Last 24 Hours 08/06/22 08/06/22 Range/Units 05:35 05:35 WBC 7.3 (4.0-10.5) x10^3/uL RBC 4.40 (4.1-5.4) x10^6/uL Hgb 10.4 L (12.0-16.0) g/dL Hct 35.2 (35-47) % MCV 80.0 (78-100) fL MCH 23.6 L (26-32) pg MCHC 29.5 L (32-36) g/dL RDW 17.0 H (11.5-14.0) % Plt Count 320 (150-450) x10^3/uL MPV 9.1 (7.5-11.0) fL Gran % 62.6 (36.0-66.0) % Immature Gran % (Auto) 4.0 H (0.00-0.4) % Nucleat RBC Rel Count 0.0 (0.00-0.1) % Eos # (Auto) 0.25 (0-0.5) x10^3/uL Immature Gran # (Auto) 0.29 H (0.00-0.03) x10^3u/L Absolute Lymphs (auto) 1.23 (1.0-4.6) x10^3/uL Absolute Monos (auto) 0.93 (0.0-1.3) x10^3/uL Absolute Nucleated RBC 0.00 (0.00-0.01) x10^3u/L Lymphocytes % 16.8 L (24.0-44.0) % Monocytes % 12.7 H (0.0-12.0) % Eosinophils % 3.4 (0.00-5.0) % Basophils % 0.5 (0.0-0.4) % Absolute Granulocytes 4.56 (1.4-6.9) x10^3/uL Basophils # 0.04 (0-0.4) x10^3/uL Sodium 134 L (137-145) mmol/L Potassium 3.2 L (3.5-5.1) mmol/L Chloride 99 (98-107) mmol/L Carbon Dioxide 30 (22-30) mmol/L Anion Gap 8.5 (5-15) MEQ/L BUN 8 (7-17) mg/dL Creatinine 0.60 (0.52-1.04) mg/dL Estimated GFR > 60.0 ML/MIN Glucose 99 (74-106) mg/dL Calcium 8.4 (8.4-10.2) mg/dL Total Bilirubin 0.30 (0.2-1.3) mg/dL AST 16 (14-36) U/L ALT 11 (0-35) U/L Alkaline Phosphatase 62 (38-126) U/L Serum Total Protein 5.9 L (6.3-8.2) g/dL Albumin 3.3 L (3.5-5.0) g/dL - Procedures and Test Procedures and Tests throughout Hospitalization: Therapy Orders & Screens 08/03/22 19:07 Oxygen NASAL CANNULA 2 lpm Comment: Diagnosis: Colitis 08/04/22 08:27 RT Miscellaneous Order ROUTINE Comment: Physician Instructions: dc o2 and check sats- patient does not wear at jaun Reason For Exam: Diagnosis: Colitis Discharge Exam General Appearance: no apparent distress, alert Neurologic Exam: alert, oriented x 3, cooperative, normal mood/affect, nml cerebellar function, sensation nml, No motor deficits Eye Exam: PERRL, EOMI, eyes nml inspection Ears, Nose, Throat Exam: normal ENT inspection, pharynx normal, moist mucous membranes Neck Exam: normal inspection, non-tender, supple, full range of motion Respiratory Exam: normal breath sounds, lungs clear, No respiratory distress Cardiovascular Exam: regular rate/rhythm, normal heart sounds Gastrointestinal/Abdomen Exam: soft, No tenderness, No mass Pelvic Exam: deferred Rectal Exam: deferred Back Exam: normal inspection, normal range of motion, No CVA tenderness, No vertebral tenderness Extremity Exam: normal inspection, normal range of motion Skin Exam: normal color, warm, dry Final Diagnosis/Problem List - Final Discharge Diagnosis/Problem (1) Colitis Current Visit: Yes Status: Resolved Code(s): K52.9 - NONINFECTIVE GASTROENTERITIS AND COLITIS, UNSPECIFIED (2) Essential hypertension Current Visit: Yes Status: Chronic Code(s): I10 - ESSENTIAL (PRIMARY) HYPERTENSION (3) GERD (gastroesophageal reflux disease) Current Visit: Yes Status: Chronic Code(s): K21.9 - GASTRO-ESOPHAGEAL REFLUX DISEASE WITHOUT ESOPHAGITIS (4) IBS (irritable bowel syndrome) Current Visit: Yes Status: Chronic (5) Anemia Current Visit: Yes Status: Chronic Code(s): D64.9 - ANEMIA, UNSPECIFIED - Discharge Discharge Date: 08/06/22 Disposition: Home, Self-Care Condition: Stable Prescriptions: New Metronidazole 500 mg [Flagyl 500 MG] 500 mg PO TID 5 Days #15 tablet Continue Metoprolol Succinate 100 mg [Toprol Xl 100 MG] 25 mg PO BID Venlafaxine HCl ER 75 mg [Effexor XR 75 MG] 150 mg PO DAILY Amlodipine Besylate 10 mg [Norvasc 10 MG] 5 mg PO BID ALPRAZolam 0.5 MG [xanAX 0.5 MG] 0.5 mg PO TID PRN PRN PRN Reason: Anxiety Aspirin 81 mg PO DAILY Fluticasone Propionate [Flonase NASAL] 1 spray NS DAILY PRN PRN PRN Reason: Allergies Lisinopril 10 mg [Zestril 10 MG] 20 mg PO BID Omeprazole 40 mg PO BID Furosemide [Lasix] 40 mg PO UD Instructions: Diverticulitis (DC), Ulcerative Colitis (DC) Additional Instructions: Call to schedule follow up with Dr. Quintanilla or Marcella Gibbons in 3-4 days. [phone] Follow up with: BRIANNA GIBBONS NP [NON-STAFF PHY W/O PRIVILEGES] - Forms: Discharge Instructions
== END 2022-08-06 15:55 | disposition home or self-care (01) | DRG 392 ==
LOC: ED 15:10 → MED SURG 18:20 → OBSVTOIN 08-03 09:01
PROVIDERS: ADMIT Family Medicine; ATTEND Family Medicine
DX: K52.9 Noninfective gastroenteritis and colitis, unspecified (principal); I10 Essential (primary) hypertension; K21.9 Gastro-esophageal reflux disease without esophagitis; D64.9 Anemia, unspecified; Z79.899 Other long term (current) drug therapy; Z20.828 Contact with and (suspected) exposure to other viral communicable diseases
CPT/HCPCS: 0241U; 36000; 36415; 36430; 74176; 80053; 81015; 82150; 83605; 83690; 83735; 84484; 85014; 85018; 85025; 86850; 86900; 86901; 86922; 87045; 87046; 87493; 94760; 96374; 96375; 99285; G0328; G0378; P9016; 82274; J1956; J2405; J3010; A9270-GY

== ENCOUNTER 2023-01-10 09:57 | Inpatient (IN) | payer MEDICARE ==
[2023-01-10] MEDS ORDERED: Sodium Chloride 0.9% 1000 ML 1,000 ML IV STA (10:01)
[2023-01-10] MEDS ORDERED: Zithromax 500 MG/ 250 ML NaCl Premix 500 MG/250 ML IVPB IV STA (10:01)
[2023-01-10] MEDS ORDERED: solu-MEDROL 125 MG, Sterile H2O 10 ml 2 ML IV ONE ×2 (10:01)
[2023-01-10] MEDS ORDERED: PROVENTIL 2.5 MG/3 ML NEB IH ONE ×2 (10:01→10:08)
[2023-01-10] MEDS ORDERED: TYLENOL 325 MG PO ONE (10:01)
[2023-01-10] MEDS ORDERED: ROCEPHIN 1 Gm-D5w 50 ml Bag** 1 G/50 ML IVPB IV STA (10:01)
[2023-01-10] MEDS ORDERED: Zofran 4 MG/2 ML VIAL IV ONE (10:01)
[2023-01-10] MEDS ORDERED: Zofran 4 MG/2 ML VIAL ONE (10:24)
[2023-01-10] MEDS ORDERED: Sterile H2O 10 ml IJ ONE (10:24)
[2023-01-10] MEDS ORDERED: Sodium Chloride 0.9% 1000 ML 1,000 ML ONE (10:25)
[2023-01-10] MEDS ORDERED: solu-MEDROL ONE (10:25)
[2023-01-10] MEDS ORDERED: ROCEPHIN 1 Gm-D5w 50 ml Bag** 1 G/50 ML IVPB IV ONE (10:25)
[2023-01-10] MEDS ORDERED: TYLENOL 325 MG ONE (10:25)
[2023-01-10 10:28] LABS: Absolute Neutrophil Ct (ANC) 12.09 x10^3/uL (1.4-6.9); BASOPHIL % 0.1 % (0.0-0.4); Basophil (Absolute #) 0.02 x10^3/uL (0-0.4); Eosinophil % 0.8 % (0.00-5.0); Eosinophil (Absolute #) 0.11 x10^3/uL (0-0.5); Hematocrit 34.8 % (35-47); Hemoglobin 11.7 g/dL (12.0-16.0); IMMATURE GRAN # 0.08 x10^3u/L (0.00-0.03); IMMATURE GRAN % 0.6 % (0.00-0.4); Lymphocyte (Absolute #) 0.48 x10^3/uL (1.0-4.6); Lymphocytes % 3.3 % (24.0-44.0); Mean Cell Volume 89.9 fL (78-100); Mean Corpuscular Hemoglobin 30.2 pg (26-32); Mean Corpuscular Hgb Concent. 33.6 g/dL (32-36); Mean Platelet Volume 9.7 fL (7.5-11.0); Monocyte (Absolute #) 1.62 x10^3/uL (0.0-1.3); Monocytes % 11.3 % (0.0-12.0); Neutrophil % 83.9 % (36.0-66.0); Platelet Count 219 x10^3/uL (150-450); Red Blood Count 3.87 x10^6/uL (4.1-5.4); White Blood Count 14.4 x10^3/uL (4.0-10.5)
--- NOTE | 2023-01-10 10:35 | XRAY ---
Indication: Pneumonia. Comparison: One day earlier. Portable chest unchanged again demonstrating mild left base and inferior right upper lobe infiltrates versus atelectasis. Heart not enlarged again with tortuous descending aorta. No new cardiopulmonary abnormalities.
[2023-01-10 10:56] LABS: ALBUMIN 3.7 g/dL (3.5-5.0); ALKALINE PHOSPHATASE 90 U/L (38-126); ANION GAP 15.7 MEQ/L (5-15); BLOOD UREA NITROGEN 12 mg/dL (7-17); CHLORIDE 94 mmol/L (98-107); Calcium 8.7 mg/dL (8.4-10.2); Carbon Dioxide 21 mmol/L (22-30); Creatinine 1 0.65 mg/dL (0.52-1.04); EST GLOMERULAR FILTRATION RATE > 60.0 ML/MIN; Glucose 129 mg/dL (74-106); Potassium 3.6 mmol/L (3.5-5.1); SGOT/AST 25 U/L (14-36); SGPT/ALT 17 U/L (0-35); SODIUM 127 mmol/L (137-145); Total Protein 6.7 g/dL (6.3-8.2)
[2023-01-10] MEDS ORDERED: Zithromax 500 MG/ 250 ML NaCl Premix 500 MG/250 ML IVPB IV ONE (11:01)
[2023-01-10 11:04] LABS: INFLUENZA A NEGATIVE (NEGATIVE); INFLUENZA B NEGATIVE (NEGATIVE); RESPIRATORY SYNCTIAL VIRUS NEGATIVE (Negative); SARS-CoV-2 Xpert Express NEGATIVE (NEGATIVE)
[2023-01-10 11:11] LABS: Slide Review 1 YES
--- NOTE | 2023-01-10 11:35 | ERPHSYRPT ---
- History of Present Illness Time Seen by Provider: 01/10/23 10:11 Source: patient Exam Limitations: no limitations Patient Subjective Stated Complaint: Pt states "I went to [facility] yesterday and they did a chest x ray and I have pneumonia." Triage Nursing Assessment: Pt presented alert and oriented X 3, skin pwd. pt tachyneic, hypoxic and able to speak in five to six word sentences. pt has persistant cough. PT has audible wheezes noted. Physician History: Patient diagnosed with pneumonia yesterday. Sent home on antibiotics. Patient had continued cough, shortness of breath, fever at home. Therefore presented to the emergency department. Patient did not start taking her home antibiotic yesterday. Patient has no falls or other trauma. Patient initial oxygen saturation was 86% on room air. She has not been feeling well for 4 to 5 days. No other falls or trauma. Negative COVID swab yesterday at [facility]. Allergies/Adverse Reactions: No Known Drug Allergies Allergy (Verified 08/02/22 15:29) Home Medications: ALPRAZolam 0.5 MG [xanAX 0.5 MG] 0.5 mg PO TID PRN PRN 01/10/14 [History] Amlodipine Besylate 10 mg [Norvasc 10 MG] 5 mg PO BID 01/10/14 [History] Metoprolol Succinate 100 mg [Toprol Xl 100 MG] 25 mg PO BID 01/10/14 [ History] Venlafaxine HCl ER 75 mg [Effexor XR 75 MG] 150 mg PO DAILY 01/10/14 [History] Aspirin 81 mg PO DAILY 12/02/16 [History] Fluticasone Propionate [Flonase NASAL] 1 spray NS DAILY PRN PRN 03/20/17 [History] Furosemide [Lasix] 40 mg PO UD 06/01/22 [History] Lisinopril 10 mg [Zestril 10 MG] 20 mg PO BID 06/01/22 [History] Omeprazole 40 mg PO BID 06/01/22 [History] Amoxicillin 1,000 mg PO DAILY 01/10/23 [History] Doxycycline Hyclate 100 mg [Vibramycin 100 MG] 100 mg PO BID 01/10/23 [History] Hx Tetanus, Diphtheria Vaccination/Date Given: Yes Hx Influenza Vaccination/Date Given: No Hx Pneumococcal Vaccination/Date Given: No Immunizations Up to Date: Yes Travel Risk - International Travel Have you traveled outside of the country in past 3 weeks: No - Coronavirus Screening Are you exhibiting any of the following symptoms?: Yes Symptoms: Fever, Cough: New Onset, Shortness of Breath, Headaches/Body Aches/Fatigue Close contact with a COVID-19 positive Pt in past 14-21 Days: No - Vaccine Status Have you recieved a Covid-19 vaccination: Yes 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: [employer] - Vaccination Dates Date of 2cond Vaccination (if applicable): 2020 - Review of Systems Constitutional: Fever, Chills Eyes: No Symptoms Ears, Nose, & Throat: No Symptoms Respiratory: Cough, Dyspnea Cardiac: No Chest Pain, No Edema, No Syncope Abdominal/Gastrointestinal: No Abdominal Pain, No Nausea, No Vomiting, No Diarrhea Genitourinary Symptoms: No Dysuria Musculoskeletal: No Back Pain, No Neck Pain Skin: No Rash Neurological: No Dizziness, No Focal Weakness, No Sensory Changes Psychological: No Symptoms Endocrine: No Symptoms All Other Systems: Reviewed and Negative - Past Medical History Pertinent Past Medical History: Yes Neurological History: No Pertinent History ENT History: Cataracts Cardiac History: Hypertension Respiratory History: No Pertinent History Endocrine Medical History: No Pertinent History Musculoskeletal History: No Pertinent History GI Medical History: GERD History: No Pertinent History Psycho-Social History: Anxiety, Depression, Panic Disorder Female Reproductive Disorders: No Pertinent History Other Medical History: C-Diff - Past Surgical History Past Surgical History: Yes Neuro Surgical History: No Pertinent History Cardiac: No Pertinent History Respiratory: No Pertinent History Gastrointestinal: No Pertinent History Genitourinary: No Pertinent History Musculoskeletal: Orthopedic Surgery Female Surgical History: Section, Hysterectomy Other Surgical History: right knee replacement, back surgery; rotator cuff, 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, left shoulder, facial surgery - Social History Smoking Status: Former smoker Exposure to second hand smoke: Yes Drug Use: none Patient Lives Alone: Yes - Nursing Vital Signs Nursing Vital Signs: Initial Vital Signs Temperature 100.4 F 01/10/23 09:58 Pulse Rate 89 01/10/23 09:58 Respiratory Rate 26 H 01/10/23 09:58 Blood Pressure 140/53 01/10/23 09:58 O2 Sat by Pulse Oximetry 85 L 01/10/23 09:58 Pain Scale Pain Intensity 0 - Physical Exam General Appearance: no apparent distress, alert Eye Exam: PERRL/EOMI, eyes nml inspection Ears, Nose, Throat Exam: normal ENT inspection, TMs normal, pharynx normal, mois t mucous membranes Neck Exam: normal inspection, non-tender, supple, full range of motion Respiratory Exam: crackles/rales, wheezing, other (Crackles and wheezes throughout), No respiratory distress Cardiovascular Exam: regular rate/rhythm, normal heart sounds, normal peripheral pulses Gastrointestinal/Abdomen Exam: soft, normal bowel sounds, No tenderness, No mass Back Exam: normal inspection, normal range of motion, No CVA tenderness, No vertebral tenderness Extremity Exam: normal inspection, normal range of motion, pelvis stable Neurologic Exam: alert, oriented x 3, cooperative, normal mood/affect, nml cerebellar function, nml station & gait, sensation nml, No motor deficits Skin Exam: normal color, warm, dry, No rash Lymphatic Exam: No adenopathy SpO2: 98 - Course Nursing assessment & vital signs reviewed: Yes EKG Interpreted by Me: Sinus Rhythm Ordered Tests: Active Orders 24 hr Category Date Time Status Admit as Inpatient ROUTINE Care 01/10/23 11:[address] Crier STAT Care 01/10/23 10:01 Active Code Status Order ROUTINE Care 01/10/23 11:07 Active EKG-ER Only STAT Care 01/10/23 10:03 Active IV Care Q6H Care 01/10/23 11:07 Active CHEST 1 VIEW (PORTABLE) Stat Exams 01/10/23 10:01 Completed CBC W DIFF AM.LAB Lab 01/11/23 04:00 Ordered CBC W DIFF Stat Lab 01/10/23 10:18 Completed CMP AM.LAB Lab 01/11/23 04:00 Ordered CMP Stat Lab 01/10/23 10:18 Completed PROCALCITONIN Stat Lab 01/10/23 10:18 Completed TROPONIN Q4H Lab 01/10/23 10:18 Completed TROPONIN Q4H Lab 01/10/23 14:15 Ordered TROPONIN Q4H Lab 01/10/23 18:15 Ordered TROPONIN Q4H Lab 01/10/23 22:15 Ordered Pulse Oximetry CONTINUOUS RT 01/10/23 11:08 Active Respiratory Therapy Assessment DAILY RT 01/10/23 10:18 Active Medication Summary Discontinued Medications Generic Name Dose Route Start Last Admin Trade Name Lazaro PRN Reason Stop Dose Admin Acetaminophen 975 mg 01/10/23 10:01 01/10/23 10:28 Acetaminophen 325 Mg Tablet PO 01/10/23 10:02 975 mg STAT ONE Administration Acetaminophen Confirm 01/10/23 10:25 Acetaminophen 325 Mg Tablet Administered 01/10/23 10:26 Dose 975 mg .ROUTE .STK-MED ONE Albuterol Sulfate 2.5 mg 01/10/23 10:01 01/10/23 10:17 Albuterol Sulfate 2.5 Mg/3 Ml Neb IH 01/10/23 10:02 2.5 mg STAT ONE Administration Albuterol Sulfate Confirm 01/10/23 10:08 Albuterol Sulfate 2.5 Mg/3 Ml Neb Administered 01/10/23 10:09 Dose 2.5 mg IH .STK-MED ONE Methylprednisolone Sodium 0 mg 01/10/23 10:01 01/10/23 10:28 Succinate 125 mg/ Sterile IV 01/10/23 10:02 125 mg Water 2 ml STAT ONE Administration Sodium Chloride 1,000 mls @ 999 mls/hr 01/10/23 10:01 01/10/23 11:30 Sodium Chloride 0.9% 1000 Ml IV 01/10/23 11:01 Infused .Q1H1M STA Infusion Azithromycin 500 mg in 250 mls @ 250 mls/hr 01/10/23 10:01 01/10/23 11:04 Zithromax 500 Mg/ 250 Ml Nacl Premix IV 01/10/23 11:00 250 mls/hr STAT STA 250 mls/hr Administration Ceftriaxone Sodium/Dextrose 1 g in 50 mls @ 100 mls/hr 01/10/23 10:01 01/10/23 11:00 Rocephin 1 Gm-D5w 50 Ml Bag IV 01/10/23 10:30 Infused STAT STA Infusion Sodium Chloride Confirm 01/10/23 10:25 Sodium Chloride 0.9% 1000 Ml Administered 01/10/23 10:26 Dose 1,000 mls @ ud .ROUTE .STK-MED ONE Ceftriaxone Sodium/Dextrose Confirm 01/10/23 10:25 Rocephin 1 Gm-D5w 50 Ml Bag Administered 01/10/23 10:26 Dose 1 g in 50 mls @ ud IV .STK-MED ONE Azithromycin Confirm 01/10/23 11:01 Zithromax 500 Mg/ 250 Ml Nacl Premix Administered 01/10/23 11:02 Dose 500 mg in 250 mls @ ud IV .STK-MED ONE Methylprednisolone Sodium Succinate Confirm 01/10/23 10:25 Methylprednis Sod Succ 125 Mg/2 Ml Vial Administered 01/10/23 10:26 Dose 125 mg .ROUTE .STK-MED ONE Ondansetron HCl 4 mg 01/10/23 10:01 01/10/23 10:28 Ondansetron Hcl 4 Mg/2 Ml Vial IV 01/10/23 10:02 4 mg STAT ONE Administration Ondansetron HCl Confirm 01/10/23 10:24 Ondansetron Hcl 4 Mg/2 Ml Vial Administered 01/10/23 10:25 Dose 4 mg .ROUTE .STK-MED ONE Sterile Water Confirm 01/10/23 10:24 Water For Injection,Sterile 10 Ml Vial Administered 01/10/23 10:25 Dose 10 ml IJ .STK-MED ONE Lab/Rad Data: Laboratory Result Diagrams 01/10/23 10:18 01/10/23 10:18 Laboratory Results 01/10/23 01/10/23 01/10/23 Range/Units 10:27 10:18 10:18 WBC (4.0-10.5) x10^3/uL RBC (4.1-5.4) x10^6/uL Hgb (12.0-16.0) g/dL Hct (35-47) % MCV (78-100) fL MCH (26-32) pg MCHC (32-36) g/dL RDW (11.5-14.0) % Plt Count (150-450) x10^3/uL MPV (7.5-11.0) fL Gran % (36.0-66.0) % Immature Gran % (Auto) (0.00-0.4) % Nucleat RBC Rel Count (0.00-0.1) % Eos # (Auto) (0-0.5) x10^3/uL Immature Gran # (Auto) (0.00-0.03) x10^3u/L Absolute Lymphs (auto) (1.0-4.6) x10^3/uL Absolute Monos (auto) (0.0-1.3) x10^3/uL Absolute Nucleated RBC (0.00-0.01) x10^3u/L Lymphocytes % (24.0-44.0) % Monocytes % (0.0-12.0) % Eosinophils % (0.00-5.0) % Basophils % (0.0-0.4) % Absolute Granulocytes (1.4-6.9) x10^3/uL Basophils # (0-0.4) x10^3/uL Sodium (137-145) mmol/L Potassium (3.5-5.1) mmol/L Chloride (98-107) mmol/L Carbon Dioxide (22-30) mmol/L Anion Gap (5-15) MEQ/L BUN (7-17) mg/dL Creatinine (0.52-1.04) mg/dL Estimated GFR ML/MIN Glucose (74-106) mg/dL Calcium (8.4-10.2) mg/dL Total Bilirubin (0.2-1.3) mg/dL AST (14-36) U/L ALT (0-35) U/L Alkaline Phosphatase (38-126) U/L Troponin I < 0.012 (0.000-0.034) ng/mL Serum Total Protein (6.3-8.2) g/dL Albumin (3.5-5.0) g/dL Procalcitonin 0.164 H (0.030-0.080) ng/mL Influenza Type A Ag NEGATIVE (NEGATIVE) Influenza Type B Ag NEGATIVE (NEGATIVE) RSV (PCR) NEGATIVE (Negative) SARS-CoV-2 (PCR) NEGATIVE (NEGATIVE) Slides for Path Review 01/10/23 01/10/23 Range/Units 10:18 10:18 WBC 14.4 H (4.0-10.5) x10^3/uL RBC 3.87 L (4.1-5.4) x10^6/uL Hgb 11.7 L (12.0-16.0) g/dL Hct 34.8 L (35-47) % MCV 89.9 (78-100) fL MCH 30.2 (26-32) pg MCHC 33.6 (32-36) g/dL RDW 14.0 (11.5-14.0) % Plt Count 219 (150-450) x10^3/uL MPV 9.7 (7.5-11.0) fL Gran % 83.9 H (36.0-66.0) % Immature Gran % (Auto) 0.6 H (0.00-0.4) % Nucleat RBC Rel Count 0.0 (0.00-0.1) % Eos # (Auto) 0.11 (0-0.5) x10^3/uL Immature Gran # (Auto) 0.08 H (0.00-0.03) x10^3u/L Absolute Lymphs (auto) 0.48 L (1.0-4.6) x10^3/uL Absolute Monos (auto) 1.62 H (0.0-1.3) x10^3/uL Absolute Nucleated RBC 0.00 (0.00-0.01) x10^3u/L Lymphocytes % 3.3 L (24.0-44.0) % Monocytes % 11.3 (0.0-12.0) % Eosinophils % 0.8 (0.00-5.0) % Basophils % 0.1 (0.0-0.4) % Absolute Granulocytes 12.09 H (1.4-6.9) x10^3/uL Basophils # 0.02 (0-0.4) x10^3/uL Sodium 127 L (137-145) mmol/L Potassium 3.6 (3.5-5.1) mmol/L Chloride 94 L (98-107) mmol/L Carbon Dioxide 21 L (22-30) mmol/L Anion Gap 15.7 H (5-15) MEQ/L BUN 12 (7-17) mg/dL Creatinine 0.65 (0.52-1.04) mg/dL Estimated GFR > 60.0 ML/MIN Glucose 129 H (74-106) mg/dL Calcium 8.7 (8.4-10.2) mg/dL Total Bilirubin 0.60 (0.2-1.3) mg/dL AST 25 (14-36) U/L ALT 17 (0-35) U/L Alkaline Phosphatase 90 (38-126) U/L Troponin I (0.000-0.034) ng/mL Serum Total Protein 6.7 (6.3-8.2) g/dL Albumin 3.7 (3.5-5.0) g/dL Procalcitonin (0.030-0.080) ng/mL Influenza Type A Ag (NEGATIVE) Influenza Type B Ag (NEGATIVE) RSV (PCR) (Negative) SARS-CoV-2 (PCR) (NEGATIVE) Slides for Path Review YES - Progress Progress: improved Progress Note: 01/10/23 11:32 differential diagnosis includes: PNA, STEMI, NSTEMI, other infection, musculoskeletal pain, pneumothorax - We'll obtain basic labs, fluids, EKG, troponin, chest x-ray - first trop negative - EKG shows no ST changes - my read. See full read below. - O2 saturations consistently greater than 92%.-Now on 2 L - CXR shows- pneumonia Patient has elevation in leukocytosis. Patient has pneumonia on chest x-ray. Oxygen saturations have improved with 2 L. COVID swab, flu swab negative. I discussed over the phone with on-call physician, Dr. Quintanilla. He will admit the patient. - Departure Departure Disposition: In-patient Admission Clinical Impression: Pneumonia Condition: Stable Critical Care Time: No Referrals: BRIANNA GIBBONS, HEALTH SERVICES MANAGER [Primary Care Provider] - Follow up/PCP as directed Instructions: Shortness of Breath (Dyspnea) (DC), Pneumonia, Adult (DC)
[2023-01-10] MEDS ORDERED: DUONEB 0.5-3 MG/3 ml Neb IH ONE (13:28)
[2023-01-10] MEDS: DUONEB 0.5-3 MG/3 ml Neb IH SCH ×2 (13:29→19:30)
[2023-01-10] MEDS: Toprol-Xl 25MG Tablets PO SCH (21:15)
[2023-01-10] MEDS: Protonix 40MG Tablet PO SCH (21:15)
[2023-01-10] MEDS ORDERED: NON-FORMULARY ITEM (Amlodipine Besylate 10 Mg [Norvasc 10 Mg] 10 MG Tablet) PO SCH (22:00)
[2023-01-10] MEDS ORDERED: NON-FORMULARY ITEM (Omeprazole [Omeprazole] 40 MG Capsule.Dr) PO SCH (22:00)
[2023-01-10] MEDS ORDERED: Toprol Xl 100 MG PO SCH (22:00)
[2023-01-10] MEDS ORDERED: Zestril 10 MG PO SCH (22:00)
[2023-01-11] MEDS: DUONEB 0.5-3 MG/3 ml Neb IH SCH ×4 (01:35→22:20)
[2023-01-11] MEDS: Zestril 20 MG PO SCH ×3 (01:59→22:25)
[2023-01-11] MEDS: NORVASC 5 MG PO SCH ×3 (01:59→22:25)
[2023-01-11 05:11] LABS: Absolute Neutrophil Ct (ANC) 8.18 x10^3/uL (1.4-6.9); BASOPHIL % 0.2 % (0.0-0.4); Basophil (Absolute #) 0.02 x10^3/uL (0-0.4); Eosinophil (Absolute #) 0 x10^3/uL (0-0.5); Hematocrit 30.5 % (35-47); Hemoglobin 10.4 g/dL (12.0-16.0); IMMATURE GRAN % 1.1 % (0.00-0.4); Lymphocyte (Absolute #) 0.41 x10^3/uL (1.0-4.6); Lymphocytes % 4.5 % (24.0-44.0); Mean Corpuscular Hemoglobin 30.7 pg (26-32); Mean Corpuscular Hgb Concent. 34.1 g/dL (32-36); Mean Platelet Volume 10.3 fL (7.5-11.0); Monocyte (Absolute #) 0.36 x10^3/uL (0.0-1.3); Neutrophil % 90.2 % (36.0-66.0); Platelet Count 228 x10^3/uL (150-450); Red Blood Count 3.39 x10^6/uL (4.1-5.4); Red Cell Distribution Width 14.2 % (11.5-14.0); White Blood Count 9.1 x10^3/uL (4.0-10.5)
[2023-01-11 05:40] LABS: ALBUMIN 3.4 g/dL (3.5-5.0); ALKALINE PHOSPHATASE 73 U/L (38-126); ANION GAP 13.9 MEQ/L (5-15); BLOOD UREA NITROGEN 21 mg/dL (7-17); CHLORIDE 100 mmol/L (98-107); Calcium 8.8 mg/dL (8.4-10.2); Carbon Dioxide 21 mmol/L (22-30); Creatinine 1 0.63 mg/dL (0.52-1.04); EST GLOMERULAR FILTRATION RATE > 60.0 ML/MIN; Glucose 163 mg/dL (74-106); Potassium 3.3 mmol/L (3.5-5.1); SGOT/AST 30 U/L (14-36); SGPT/ALT 20 U/L (0-35); SODIUM 131 mmol/L (137-145); Total Protein 6.3 g/dL (6.3-8.2)
[2023-01-11 07:16] LABS: Slide Review 1 YES
--- NOTE | 2023-01-11 08:25 | PCM.HP ---
History of Present Illness - Chief Complaint Chief Complaint: Pneumonia History of Present Illness: is a 77 year old female with a history of cough, fever and shortness of breath. she was diagnosed with pneumonia and started on outpatient treatment the day prior to arrival, she sought care in the ER for worsening dyspnea and was found to be hypoxemic. she has a longstanding history of tobacco use, she smoked for 33 years but quit 13 years ago. - Review of Systems Constitutional: No Fever, No Chills Respiratory: Cough, Short Of Breath, Wheezing Cardiac: No Chest Pain, No Edema, No Syncope Abdominal/Gastrointestinal: No Abdominal Pain, No Nausea, No Vomiting, No Diarrhea Genitourinary Symptoms: No Dysuria Skin: No Rash All Other Systems: Reviewed and Negative Medications & Allergies Home Medications: Home Medication List ALPRAZolam 0.5 MG [xanAX 0.5 MG] 0.5 mg PO TID PRN PRN 01/10/14 [History Confirmed 01/10/23] Amlodipine Besylate 10 mg [Norvasc 10 MG] 5 mg PO BID 01/10/14 [History Confirmed 01/10/23] Metoprolol Succinate 100 mg [Toprol Xl 100 MG] 25 mg PO BID 01/10/14 [History Confirmed 01/10/23] Venlafaxine HCl ER 75 mg [Effexor XR 75 MG] 150 mg PO DAILY 01/10/14 [History Confirmed 01/10/23] Aspirin 81 mg PO DAILY 12/02/16 [History Confirmed 01/10/23] Fluticasone Propionate [Flonase NASAL] 1 spray NS DAILY PRN PRN 03/20/17 [History Confirmed 01/10/23] Furosemide [Lasix] 40 mg PO UD 06/01/22 [History Confirmed 01/10/23] Lisinopril 10 mg [Zestril 10 MG] 20 mg PO BID 06/01/22 [History Confirmed 01/10/23] Omeprazole 40 mg PO BID 06/01/22 [History Confirmed 01/10/23] Amoxicillin 1,000 mg PO DAILY 01/10/23 [History Confirmed 01/10/23] Doxycycline Hyclate 100 mg [Vibramycin 100 MG] 100 mg PO BID 01/10/23 [History Confirmed 01/10/23] Allergies/Adverse Reactions: Allergies Allergy/AdvReac Type Severity Reaction Status Date / Time No Known Drug Allergies Allergy Verified 08/02/22 15:29 - Past Medical History Past Medical History: Yes Neurological History: No Pertinent History ENT History: Cataracts Cardiac History: Hypertension Respiratory History: No Pertinent History Endocrine Medical History: No Pertinent History Musculoskelatal History: No Pertinent History GI Medical History: Diverticulitis, GERD History: No Pertinent History Pyscho-Social History: Anxiety, Depression, Panic Disorder Reproductive Disorders: No Pertinent History Comment: C-Diff - Female History Are you now?: No - Past Surgical History Past Surgical History: Yes Neuro Surgical History: No Pertinent History Cardiac History: No Pertinent History Respiratory Surgery: No Pertinent History GI Surgical History: No Pertinent History Genitourinary Surgical Hx: No Pertinent History Musculskeletal Surgical Hx: Orthopedic Surgery Female Surgical History: Section, Hysterectomy Other Surgical History: right knee replacement, back surgery; rotator cuff, 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, left shoulder, facial surgery - Social History Smoking Status: Former smoker Exposure to second hand smoke: No Alcohol: None Drug Use: none - Physical Exam Vital Signs: Vital Signs - 24 hr Temp Pulse Resp BP Pulse Ox 01/11/23 07:26 92 L 01/11/23 07:24 97.3 F 83 15 90/44 95 01/11/23 06:39 83 20 96 01/11/23 04:00 97.9 F 88 16 98/48 95 01/11/23 01:35 83 18 95 01/11/23 00:00 97.1 F 85 18 108/56 96 01/10/23 19:52 97.5 F 86 17 108/55 95 01/10/23 19:30 84 16 96 01/10/23 16:00 98.1 F 88 16 105/53 97 01/10/23 13:31 82 20 93 L 01/10/23 12:24 97.7 F 84 20 115/55 96 01/10/23 12:16 97.7 F 84 20 115/55 96 01/10/23 12:05 81 149/77 95 01/10/23 11:34 98 01/10/23 11:06 97.7 F 83 20 130/51 98 01/10/23 10:18 84 22 95 02/22/23 09:58 100.4 F 89 24 140/53 86 L General Appearance: no apparent distress Neurologic Exam: alert, oriented x 3 Respiratory Exam: rhonchi, wheezing Cardiovascular Exam: regular rate/rhythm, normal heart sounds, normal peripheral pulses Gastrointestinal/Abdomen Exam: soft, normal bowel sounds, No tenderness, No mass Extremity Exam: normal inspection, normal range of motion, pelvis stable Skin Exam: normal color, warm, dry, No rash Results - Labs Lab/Micro Results: Lab Results-Last 24 Hours 01/10/23 01/10/23 01/10/23 Range/Units 10:18 10:18 10:18 WBC 14.4 H (4.0-10.5) x10^3/uL RBC 3.87 L (4.1-5.4) x10^6/uL Hgb 11.7 L (12.0-16.0) g/dL Hct 34.8 L (35-47) % MCV 89.9 (78-100) fL MCH 30.2 (26-32) pg MCHC 33.6 (32-36) g/dL RDW 14.0 (11.5-14.0) % Plt Count 219 (150-450) x10^3/uL MPV 9.7 (7.5-11.0) fL Gran % 83.9 H (36.0-66.0) % Immature Gran % (Auto) 0.6 H (0.00-0.4) % Nucleat RBC Rel Count 0.0 (0.00-0.1) % Eos # (Auto) 0.11 (0-0.5) x10^3/uL Immature Gran # (Auto) 0.08 H (0.00-0.03) x10^3u/L Absolute Lymphs (auto) 0.48 L (1.0-4.6) x10^3/uL Absolute Monos (auto) 1.62 H (0.0-1.3) x10^3/uL Absolute Nucleated RBC 0.00 (0.00-0.01) x10^3u/L Lymphocytes % 3.3 L (24.0-44.0) % Monocytes % 11.3 (0.0-12.0) % Eosinophils % 0.8 (0.00-5.0) % Basophils % 0.1 (0.0-0.4) % Absolute Granulocytes 12.09 H (1.4-6.9) x10^3/uL Basophils # 0.02 (0-0.4) x10^3/uL Sodium 127 L (137-145) mmol/L Potassium 3.6 (3.5-5.1) mmol/L Chloride 94 L (98-107) mmol/L Carbon Dioxide 21 L (22-30) mmol/L Anion Gap 15.7 H (5-15) MEQ/L BUN 12 (7-17) mg/dL Creatinine 0.65 (0.52-1.04) mg/dL Estimated GFR > 60.0 ML/MIN Glucose 129 H (74-106) mg/dL Calcium 8.7 (8.4-10.2) mg/dL Total Bilirubin 0.60 (0.2-1.3) mg/dL AST 25 (14-36) U/L ALT 17 (0-35) U/L Alkaline Phosphatase 90 (38-126) U/L Troponin I (0.000-0.034) ng/mL Serum Total Protein 6.7 (6.3-8.2) g/dL Albumin 3.7 (3.5-5.0) g/dL Procalcitonin 0.164 H (0.030-0.080) ng/mL Influenza Type A Ag (NEGATIVE) Influenza Type B Ag (NEGATIVE) RSV (PCR) (Negative) SARS-CoV-2 (PCR) (NEGATIVE) Slides for Path Review YES 01/10/23 01/10/23 01/10/23 Range/Units 10:18 10:27 13:59 WBC (4.0-10.5) x10^3/uL RBC (4.1-5.4) x10^6/uL Hgb (12.0-16.0) g/dL Hct (35-47) % MCV (78-100) fL MCH (26-32) pg MCHC (32-36) g/dL RDW (11.5-14.0) % Plt Count (150-450) x10^3/uL MPV (7.5-11.0) fL Gran % (36.0-66.0) % Immature Gran % (Auto) (0.00-0.4) % Nucleat RBC Rel Count (0.00-0.1) % Eos # (Auto) (0-0.5) x10^3/uL Immature Gran # (Auto) (0.00-0.03) x10^3u/L Absolute Lymphs (auto) (1.0-4.6) x10^3/uL Absolute Monos (auto) (0.0-1.3) x10^3/uL Absolute Nucleated RBC (0.00-0.01) x10^3u/L Lymphocytes % (24.0-44.0) % Monocytes % (0.0-12.0) % Eosinophils % (0.00-5.0) % Basophils % (0.0-0.4) % Absolute Granulocytes (1.4-6.9) x10^3/uL Basophils # (0-0.4) x10^3/uL Sodium (137-145) mmol/L Potassium (3.5-5.1) mmol/L Chloride (98-107) mmol/L Carbon Dioxide (22-30) mmol/L Anion Gap (5-15) MEQ/L BUN (7-17) mg/dL Creatinine (0.52-1.04) mg/dL Estimated GFR ML/MIN Glucose (74-106) mg/dL Calcium (8.4-10.2) mg/dL Total Bilirubin (0.2-1.3) mg/dL AST (14-36) U/L ALT (0-35) U/L Alkaline Phosphatase (38-126) U/L Troponin I < 0.012 < 0.012 (0.000-0.034) ng/mL Serum Total Protein (6.3-8.2) g/dL Albumin (3.5-5.0) g/dL Procalcitonin (0.030-0.080) ng/mL Influenza Type A Ag NEGATIVE (NEGATIVE) Influenza Type B Ag NEGATIVE (NEGATIVE) RSV (PCR) NEGATIVE (Negative) SARS-CoV-2 (PCR) NEGATIVE (NEGATIVE) Slides for Path Review 01/10/23 01/11/23 01/11/23 Range/Units 18:24 05:13 05:13 WBC 9.1 (4.0-10.5) x10^3/uL RBC 3.39 L (4.1-5.4) x10^6/uL Hgb 10.4 L (12.0-16.0) g/dL Hct 30.5 L (35-47) % MCV 90.0 (78-100) fL MCH 30.7 (26-32) pg MCHC 34.1 (32-36) g/dL RDW 14.2 H (11.5-14.0) % Plt Count 228 (150-450) x10^3/uL MPV 10.3 (7.5-11.0) fL Gran % 90.2 H (36.0-66.0) % Immature Gran % (Auto) 1.1 H (0.00-0.4) % Nucleat RBC Rel Count 0.0 (0.00-0.1) % Eos # (Auto) 0 (0-0.5) x10^3/uL Immature Gran # (Auto) 0.10 H (0.00-0.03) x10^3u/L Absolute Lymphs (auto) 0.41 L (1.0-4.6) x10^3/uL Absolute Monos (auto) 0.36 (0.0-1.3) x10^3/uL Absolute Nucleated RBC 0.00 (0.00-0.01) x10^3u/L Lymphocytes % 4.5 L (24.0-44.0) % Monocytes % 4.0 (0.0-12.0) % Eosinophils % 0.0 (0.00-5.0) % Basophils % 0.2 (0.0-0.4) % Absolute Granulocytes 8.18 H (1.4-6.9) x10^3/uL Basophils # 0.02 (0-0.4) x10^3/uL Sodium 131 L (137-145) mmol/L Potassium 3.3 L (3.5-5.1) mmol/L Chloride 100 (98-107) mmol/L Carbon Dioxide 21 L (22-30) mmol/L Anion Gap 13.9 (5-15) MEQ/L BUN 21 H (7-17) mg/dL Creatinine 0.63 (0.52-1.04) mg/dL Estimated GFR > 60.0 ML/MIN Glucose 163 H (74-106) mg/dL Calcium 8.8 (8.4-10.2) mg/dL Total Bilirubin 0.30 (0.2-1.3) mg/dL AST 30 (14-36) U/L ALT 20 (0-35) U/L Alkaline Phosphatase 73 (38-126) U/L Troponin I < 0.012 (0.000-0.034) ng/mL Serum Total Protein 6.3 (6.3-8.2) g/dL Albumin 3.4 L (3.5-5.0) g/dL Procalcitonin (0.030-0.080) ng/mL Influenza Type A Ag (NEGATIVE) Influenza Type B Ag (NEGATIVE) RSV (PCR) (Negative) SARS-CoV-2 (PCR) (NEGATIVE) Slides for Path Review YES - Radiology Impressions Radiology Exams & Impressions: Radiology Procedures Category Date Time Status CHEST 1 VIEW (PORTABLE) Stat Exams 01/10/23 10:01 Completed - Other Procedures and Tests Respiratory Therapy 01/10/23 10:18 Respiratory Therapy Assessment DAILY 01/10/23 13:30 Oxygen NASAL CANNULA 3 lpm Assessment/Plan (1) Pneumonia Current Visit: Yes Status: Acute Qualifiers: Assessment & Plan: continue rocephin and zithromax Code(s): J18.9 - PNEUMONIA, UNSPECIFIED ORGANISM (2) COPD exacerbation Current Visit: Yes Status: Acute Assessment & Plan: continue rocephin/zithromax, solu medrol and duonebs Code(s): J44.1 - CHRONIC OBSTRUCTIVE PULMONARY DISEASE W (ACUTE) EXACERBATION
[2023-01-11] MEDS: ECOTRIN 81 MG PO SCH (09:21)
[2023-01-11] MEDS: Zithromax 500 MG/ 250 ML NaCl Premix 500 MG/250 ML IVPB IV SCH (09:24)
[2023-01-11] MEDS: Protonix 40MG Tablet PO SCH ×2 (09:24→22:03)
[2023-01-11] MEDS: Effexor XR 75 MG PO SCH (09:24)
[2023-01-11] MEDS: Toprol-Xl 25MG Tablets PO SCH ×2 (09:25→22:03)
[2023-01-11] MEDS ORDERED: NON-FORMULARY ITEM (Aspirin [Aspirin] 81 MG Tablet) PO SCH (10:00)
[2023-01-11] MEDS ORDERED: NON-FORMULARY ITEM (Venlafaxine Hcl 75 MG Cap) PO SCH (10:00)
[2023-01-11] MEDS: ROCEPHIN 1 Gm-D5w 50 ml Bag** 1 G/50 ML IVPB IV SCH (11:21)
[2023-01-11] MEDS: solu-MEDROL 80 MG, Sterile H2O 10 ml 2 ML IV SCH ×6 (12:55→23:08)
[2023-01-11] MEDS: ENOXAPARIN SODIUM SQ SCH (14:45)
[2023-01-12] MEDS: xanAX 0.5 MG PO PRN ×2 (01:05→23:16)
[2023-01-12] MEDS: DUONEB 0.5-3 MG/3 ml Neb IH SCH ×2 (03:14→08:07)
[2023-01-12 04:59] LABS: Absolute Neutrophil Ct (ANC) 12.16 x10^3/uL (1.4-6.9); BASOPHIL % 0.2 % (0.0-0.4); Basophil (Absolute #) 0.02 x10^3/uL (0-0.4); Eosinophil (Absolute #) 0 x10^3/uL (0-0.5); Hematocrit 30.9 % (35-47); Hemoglobin 10.3 g/dL (12.0-16.0); IMMATURE GRAN # 0.28 x10^3u/L (0.00-0.03); IMMATURE GRAN % 2.1 % (0.00-0.4); Lymphocyte (Absolute #) 0.45 x10^3/uL (1.0-4.6); Lymphocytes % 3.4 % (24.0-44.0); Mean Cell Volume 91.7 fL (78-100); Mean Corpuscular Hemoglobin 30.6 pg (26-32); Mean Corpuscular Hgb Concent. 33.3 g/dL (32-36); Mean Platelet Volume 9.7 fL (7.5-11.0); Monocyte (Absolute #) 0.35 x10^3/uL (0.0-1.3); Monocytes % 2.6 % (0.0-12.0); Neutrophil % 91.7 % (36.0-66.0); Platelet Count 270 x10^3/uL (150-450); Red Blood Count 3.37 x10^6/uL (4.1-5.4); Red Cell Distribution Width 14.1 % (11.5-14.0); White Blood Count 13.3 x10^3/uL (4.0-10.5)
[2023-01-12 05:16] LABS: ANION GAP 10.6 MEQ/L (5-15); BLOOD UREA NITROGEN 22 mg/dL (7-17); CHLORIDE 101 mmol/L (98-107); Calcium 8.9 mg/dL (8.4-10.2); Carbon Dioxide 26 mmol/L (22-30); Creatinine 1 0.58 mg/dL (0.52-1.04); EST GLOMERULAR FILTRATION RATE > 60.0 ML/MIN; Glucose 172 mg/dL (74-106); Potassium 3.5 mmol/L (3.5-5.1); SODIUM 133 mmol/L (137-145)
[2023-01-12] MEDS: solu-MEDROL 80 MG, Sterile H2O 10 ml 2 ML IV SCH ×8 (06:10→23:16)
[2023-01-12 07:40] LABS: Slide Review 1 YES
--- NOTE | 2023-01-12 08:32 | PCM.NOTE ---
Date and Time: 01/12/23830 Subjective Assessment: patient c/o feeling anxious and jittery from albuterol, was off oxygen overnight but had to be replaced per patient. still doing a lot of coughing Objective Exam General Appearance: no apparent distress Neurologic Exam: alert, oriented x 3 Respiratory Exam: rhonchi, wheezing Cardiovascular Exam: regular rate/rhythm, normal heart sounds Gastrointestinal/Abdomen Exam: soft, No tenderness, No mass OBJECTIVE DATA Vital Signs: Vital Signs - 24 hr Temp Pulse Resp BP Pulse Ox 01/12/23 08:08 81 16 94 L 01/12/23 07:25 98.7 F 86 18 141/65 93 L 01/12/23 04:00 90 01/12/23 03:14 96 H 16 87 L 01/11/23 23:08 97.5 F 98 H 16 133/60 98 01/11/23 22:20 93 H 16 92 L 01/11/23 20:00 97.5 F 94 H 16 124/59 94 L 01/11/23 16:00 98.7 F 95 H 16 113/56 91 L 01/11/23 13:02 94 H 18 92 L 01/11/23 11:32 98.0 F 89 16 108/55 91 L Pain Assessment - Last Documented Pain Intensity 0 Intake and Output: Intake & Output 01/09/23 01/10/23 01/11/23 01/12/23 11:59 11:59 11:59 11:59 Intake Total 1040 840 Output Total 1000 150 Balance 40 690 Weight 73 kg 74.2 kg Lab Results: Lab Results-Last 24 Hours 01/12/23 01/12/23 Range/Units 04:36 04:36 WBC 13.3 H (4.0-10.5) x10^3/uL RBC 3.37 L (4.1-5.4) x10^6/uL Hgb 10.3 L (12.0-16.0) g/dL Hct 30.9 L (35-47) % MCV 91.7 (78-100) fL MCH 30.6 (26-32) pg MCHC 33.3 (32-36) g/dL RDW 14.1 H (11.5-14.0) % Plt Count 270 (150-450) x10^3/uL MPV 9.7 (7.5-11.0) fL Gran % 91.7 H (36.0-66.0) % Immature Gran % (Auto) 2.1 H (0.00-0.4) % Nucleat RBC Rel Count 0.0 (0.00-0.1) % Eos # (Auto) 0 (0-0.5) x10^3/uL Immature Gran # (Auto) 0.28 H (0.00-0.03) x10^3u/L Absolute Lymphs (auto) 0.45 L (1.0-4.6) x10^3/uL Absolute Monos (auto) 0.35 (0.0-1.3) x10^3/uL Absolute Nucleated RBC 0.00 (0.00-0.01) x10^3u/L Lymphocytes % 3.4 L (24.0-44.0) % Monocytes % 2.6 (0.0-12.0) % Eosinophils % 0.0 (0.00-5.0) % Basophils % 0.2 (0.0-0.4) % Absolute Granulocytes 12.16 H (1.4-6.9) x10^3/uL Basophils # 0.02 (0-0.4) x10^3/uL Sodium 133 L (137-145) mmol/L Potassium 3.5 (3.5-5.1) mmol/L Chloride 101 (98-107) mmol/L Carbon Dioxide 26 (22-30) mmol/L Anion Gap 10.6 (5-15) MEQ/L BUN 22 H (7-17) mg/dL Creatinine 0.58 (0.52-1.04) mg/dL Estimated GFR > 60.0 ML/MIN Glucose 172 H (74-106) mg/dL Calcium 8.9 (8.4-10.2) mg/dL Slides for Path Review YES Radiology Exams: Radiology Procedures Category Date Time Status CHEST 1 VIEW (PORTABLE) Stat Exams 01/10/23 10:01 Completed Multi-Disciplinary Progress Notes: Multi-Disciplinary Progress Notes 01/11/23 23:15 Respiratory Note by Mandeep Dawson PT REQUESTED A LATER TX TIME SHE HAD COMPANY IN HER RM. GAVE PT TX AND LEFT 2LPM O2 RUNNING AT BEDSIDE FOR PT TO PLACE IF SHE NEEDED. PT AWARE TO CALL FOR RT IF NEEDED. Initialized on 01/11/23 23:15 - END OF NOTE 01/11/23 10:32 Respiratory Note by Susan Mayer room air resting spo2 92% Initialized on 01/11/23 10:32 - END OF NOTE 01/11/23 09:47 Respiratory Note by Susan Mayer 0930 N/C 2LPM SPO2 AT REST 96%. PLACED ON ROOM AIR X 10 MIN SPO2 94%. WILL MONITOR SPO2 AND SEE IF SHE CAN REMAIN OFF O2 Initialized on 01/11/23 09:47 - END OF NOTE Assessment/Plan (1) Pneumonia Current Visit: Yes Status: Acute Qualifiers: Assessment & Plan: continue rocephin/zithromax Code(s): J18.9 - PNEUMONIA, UNSPECIFIED ORGANISM (2) COPD exacerbation Current Visit: Yes Status: Acute Assessment & Plan: solu medrol, rocephin/zithromax and nebs Code(s): J44.1 - CHRONIC OBSTRUCTIVE PULMONARY DISEASE W (ACUTE) EXACERBATION
[2023-01-12] MEDS: Zithromax 500 MG/ 250 ML NaCl Premix 500 MG/250 ML IVPB IV SCH (09:12)
[2023-01-12] MEDS: Effexor XR 75 MG PO SCH (09:13)
[2023-01-12] MEDS: Toprol-Xl 25MG Tablets PO SCH ×2 (09:13→21:26)
[2023-01-12] MEDS: ECOTRIN 81 MG PO SCH (09:13)
[2023-01-12] MEDS: NORVASC 5 MG PO SCH ×2 (09:13→21:26)
[2023-01-12] MEDS: Protonix 40MG Tablet PO SCH ×2 (09:13→21:26)
[2023-01-12] MEDS: Zestril 20 MG PO SCH ×2 (09:13→21:26)
[2023-01-12] MEDS: ENOXAPARIN SODIUM SQ SCH (09:13)
[2023-01-12] MEDS: ROCEPHIN 1 Gm-D5w 50 ml Bag** 1 G/50 ML IVPB IV SCH (12:53)
[2023-01-12] MEDS: Xopenex 1.25 MG/0.5 ML UD NEBULE IH SCH ×2 (13:59→18:30)
[2023-01-12] MEDS: Sodium Chloride 3 ML UD NEBULES IH SCH ×2 (13:59→18:31)
[2023-01-12] MEDS ORDERED: solu-MEDROL ONE (18:17)
[2023-01-13] MEDS: Sodium Chloride 3 ML UD NEBULES IH SCH ×4 (00:30→19:43)
[2023-01-13] MEDS: Xopenex 1.25 MG/0.5 ML UD NEBULE IH SCH ×4 (00:35→18:30)
[2023-01-13 05:39] LABS: Absolute Neutrophil Ct (ANC) 8.65 x10^3/uL (1.4-6.9); BASOPHIL % 0.3 % (0.0-0.4); Basophil (Absolute #) 0.03 x10^3/uL (0-0.4); Eosinophil (Absolute #) 0 x10^3/uL (0-0.5); Hematocrit 33.2 % (35-47); Hemoglobin 10.9 g/dL (12.0-16.0); IMMATURE GRAN # 0.78 x10^3u/L (0.00-0.03); IMMATURE GRAN % 7.4 % (0.00-0.4); Lymphocyte (Absolute #) 0.49 x10^3/uL (1.0-4.6); Lymphocytes % 4.7 % (24.0-44.0); Mean Cell Volume 93.5 fL (78-100); Mean Corpuscular Hemoglobin 30.7 pg (26-32); Mean Corpuscular Hgb Concent. 32.8 g/dL (32-36); Mean Platelet Volume 9.6 fL (7.5-11.0); Monocyte (Absolute #) 0.55 x10^3/uL (0.0-1.3); Monocytes % 5.2 % (0.0-12.0); Neutrophil % 82.4 % (36.0-66.0); Platelet Count 297 x10^3/uL (150-450); Red Blood Count 3.55 x10^6/uL (4.1-5.4); Red Cell Distribution Width 14.2 % (11.5-14.0); White Blood Count 10.5 x10^3/uL (4.0-10.5)
[2023-01-13] MEDS: solu-MEDROL 80 MG, Sterile H2O 10 ml 2 ML IV SCH ×8 (06:01→23:42)
[2023-01-13 06:10] LABS: BLOOD UREA NITROGEN 17 mg/dL (7-17); CHLORIDE 97 mmol/L (98-107); Calcium 8.9 mg/dL (8.4-10.2); Carbon Dioxide 29 mmol/L (22-30); Creatinine 1 0.49 mg/dL (0.52-1.04); EST GLOMERULAR FILTRATION RATE > 60.0 ML/MIN; Glucose 164 mg/dL (74-106); SODIUM 137 mmol/L (137-145)
[2023-01-13 06:18] LABS: Potassium 2.8 mmol/L (3.5-5.1)
[2023-01-13 07:12] LABS: Slide Review 1 YES
[2023-01-13] MEDS: Sodium Chloride 0.9% 1000 ML 1,000 ML IV SCH (08:06)
[2023-01-13] MEDS: POTASSIUM CHLORIDE 20 mEq IN WATER 100ML 100 ML IV SCH ×2 (08:20→10:35)
[2023-01-13] MEDS: Klor Con PO SCH ×4 (08:20→14:29)
[2023-01-13] MEDS: ECOTRIN 81 MG PO SCH (10:38)
[2023-01-13] MEDS: NORVASC 5 MG PO SCH ×2 (10:38→21:51)
[2023-01-13] MEDS: Effexor XR 75 MG PO SCH (10:38)
[2023-01-13] MEDS: ROCEPHIN 1 Gm-D5w 50 ml Bag** 1 G/50 ML IVPB IV SCH (10:41)
[2023-01-13] MEDS: Protonix 40MG Tablet PO SCH ×2 (10:41→21:51)
[2023-01-13] MEDS: Toprol-Xl 25MG Tablets PO SCH ×2 (10:41→21:51)
[2023-01-13] MEDS: Zestril 20 MG PO SCH ×2 (10:41→21:51)
[2023-01-13] MEDS: ENOXAPARIN SODIUM SQ SCH (10:50)
[2023-01-13] MEDS: Zithromax 500 MG/ 250 ML NaCl Premix 500 MG/250 ML IVPB IV SCH (11:52)
[2023-01-13] MEDS: xanAX 0.5 MG PO PRN (23:42)
[2023-01-14] MEDS: Xopenex 1.25 MG/0.5 ML UD NEBULE IH SCH ×4 (00:40→19:42)
[2023-01-14] MEDS: Sodium Chloride 3 ML UD NEBULES IH SCH ×4 (00:40→19:42)
[2023-01-14] MEDS: Sodium Chloride 0.9% 1000 ML 1,000 ML IV SCH (05:14)
[2023-01-14 05:21] LABS: Hematocrit 33.7 % (35-47); Hemoglobin 11.3 g/dL (12.0-16.0); Mean Cell Volume 91.3 fL (78-100); Mean Corpuscular Hemoglobin 30.6 pg (26-32); Mean Corpuscular Hgb Concent. 33.5 g/dL (32-36); Mean Platelet Volume 9.1 fL (7.5-11.0); Platelet Count 329 x10^3/uL (150-450); Red Blood Count 3.69 x10^6/uL (4.1-5.4); Red Cell Distribution Width 14.2 % (11.5-14.0); White Blood Count 11.6 x10^3/uL (4.0-10.5)
[2023-01-14 05:45] LABS: ALBUMIN 3.5 g/dL (3.5-5.0); ALKALINE PHOSPHATASE 70 U/L (38-126); ANION GAP 11.7 MEQ/L (5-15); BLOOD UREA NITROGEN 18 mg/dL (7-17); CHLORIDE 94 mmol/L (98-107); Calcium 8.5 mg/dL (8.4-10.2); Carbon Dioxide 32 mmol/L (22-30); Creatinine 1 0.48 mg/dL (0.52-1.04); EST GLOMERULAR FILTRATION RATE > 60.0 ML/MIN; Glucose 147 mg/dL (74-106); MAGNESIUM 1.9 mg/dL (1.6-2.3); Potassium 3.2 mmol/L (3.5-5.1); SGOT/AST 25 U/L (14-36); SGPT/ALT 31 U/L (0-35); SODIUM 135 mmol/L (137-145); Total Protein 6.3 g/dL (6.3-8.2)
[2023-01-14] MEDS: solu-MEDROL 80 MG, Sterile H2O 10 ml 2 ML IV SCH ×4 (05:50→12:50)
[2023-01-14] MEDS ORDERED: Klor Con PO ONE (06:21)
[2023-01-14] MEDS: POTASSIUM CHLORIDE 20 mEq IN WATER 100ML 20 MEQ/100 ML BAG IV SCH ×2 (06:35→08:49)
[2023-01-14] MEDS: Toprol-Xl 25MG Tablets PO SCH ×2 (08:52→21:28)
[2023-01-14] MEDS: NORVASC 5 MG PO SCH ×2 (08:52→21:28)
[2023-01-14] MEDS: ECOTRIN 81 MG PO SCH (08:53)
[2023-01-14] MEDS: Protonix 40MG Tablet PO SCH ×2 (08:53→21:28)
[2023-01-14] MEDS: Zestril 20 MG PO SCH ×2 (08:53→21:28)
[2023-01-14] MEDS: Effexor XR 75 MG PO SCH (08:53)
[2023-01-14] MEDS: ROCEPHIN 1 Gm-D5w 50 ml Bag** 1 G/50 ML IVPB IV SCH (11:10)
[2023-01-14] MEDS: Zithromax 250 MG TABLET PO SCH (11:10)
[2023-01-14] MEDS: ENOXAPARIN SODIUM SQ SCH (14:46)
[2023-01-14] MEDS: xanAX 0.5 MG PO PRN (21:28)
[2023-01-14] MEDS: solu-MEDROL 40 MG, Sterile H2O 10 ml 1 ML IV SCH ×2 (21:28)
[2023-01-14] MEDS: Klor Con PO SCH (21:28)
[2023-01-15] MEDS: Sodium Chloride 0.9% 1000 ML 1,000 ML IV SCH (01:11)
[2023-01-15] MEDS: Xopenex 1.25 MG/0.5 ML UD NEBULE IH SCH ×4 (01:18→18:43)
[2023-01-15] MEDS: Sodium Chloride 3 ML UD NEBULES IH SCH ×4 (01:19→18:43)
[2023-01-15 05:35] LABS: Hematocrit 35.8 % (35-47); Hemoglobin 11.8 g/dL (12.0-16.0); Mean Cell Volume 91.3 fL (78-100); Mean Corpuscular Hemoglobin 30.1 pg (26-32); Mean Platelet Volume 9.1 fL (7.5-11.0); Platelet Count 349 x10^3/uL (150-450); Red Blood Count 3.92 x10^6/uL (4.1-5.4); Red Cell Distribution Width 14.4 % (11.5-14.0); White Blood Count 14.5 x10^3/uL (4.0-10.5)
[2023-01-15 06:56] LABS: ALBUMIN 3.4 g/dL (3.5-5.0); ALKALINE PHOSPHATASE 66 U/L (38-126); ANION GAP 11.4 MEQ/L (5-15); BLOOD UREA NITROGEN 22 mg/dL (7-17); CHLORIDE 91 mmol/L (98-107); Calcium 8.6 mg/dL (8.4-10.2); Carbon Dioxide 36 mmol/L (22-30); Creatinine 1 0.57 mg/dL (0.52-1.04); EST GLOMERULAR FILTRATION RATE > 60.0 ML/MIN; Glucose 133 mg/dL (74-106); SGOT/AST 24 U/L (14-36); SGPT/ALT 28 U/L (0-35); SODIUM 134 mmol/L (137-145); Total Protein 6.2 g/dL (6.3-8.2)
--- NOTE | 2023-01-15 08:32 | PCM.NOTE ---
Date and Time: 01/15/23828 Subjective Assessment: patient had low potassium over the weekend, she is feeling better. still on 3L oxygen and not on oxygen at home prior to admission, breathing and cough are improved Objective Exam General Appearance: no apparent distress Neurologic Exam: alert, oriented x 3 Respiratory Exam: lungs clear, prolonged expirations, No respiratory distress, No accessory muscle use Cardiovascular Exam: regular rate/rhythm, normal heart sounds Gastrointestinal/Abdomen Exam: soft, No tenderness, No mass Extremity Exam: normal inspection, normal range of motion OBJECTIVE DATA Vital Signs: Vital Signs - 24 hr Temp Pulse Resp BP Pulse Ox 01/15/23 07:15 96.6 F 71 14 160/72 96 01/15/23 06:57 75 18 95 01/15/23 04:00 97.3 F 77 20 152/84 96 01/15/23 01:18 80 16 01/14/23 23:44 97.3 F 80 20 165/83 97 01/14/23 19:47 97.0 F 83 21 130/74 95 01/14/23 19:42 88 18 98 01/14/23 16:00 97.5 F 88 17 154/85 93 L 01/14/23 14:09 90 18 93 L 01/14/23 12:00 97.1 F 89 18 147/67 92 L 01/14/23 08:42 82 16 95 Pain Assessment - Last Documented Pain Intensity 0 Intake and Output: Intake & Output 01/12/23 01/13/23 01/14/23 01/15/23 11:59 11:59 11:59 11:59 Intake Total 1320 2580 2440 1698 Output Total 074 572 9016 1800 Balance 1170 1780 -260 -102 Weight 74.2 kg Lab Results: Lab Results-Last 24 Hours 01/15/23 01/15/23 Range/Units 05:12 05:12 WBC 14.5 H (4.0-10.5) x10^3/uL RBC 3.92 L (4.1-5.4) x10^6/uL Hgb 11.8 L (12.0-16.0) g/dL Hct 35.8 (35-47) % MCV 91.3 (78-100) fL MCH 30.1 (26-32) pg MCHC 33.0 (32-36) g/dL RDW 14.4 H (11.5-14.0) % Plt Count 349 (150-450) x10^3/uL MPV 9.1 (7.5-11.0) fL Sodium 134 L (137-145) mmol/L Potassium 4.0 D (3.5-5.1) mmol/L Chloride 91 L (98-107) mmol/L Carbon Dioxide 36 H (22-30) mmol/L Anion Gap 11.4 (5-15) MEQ/L BUN 22 H (7-17) mg/dL Creatinine 0.57 (0.52-1.04) mg/dL Estimated GFR > 60.0 ML/MIN Glucose 133 H (74-106) mg/dL Calcium 8.6 (8.4-10.2) mg/dL Total Bilirubin 0.40 (0.2-1.3) mg/dL AST 24 (14-36) U/L ALT 28 (0-35) U/L Alkaline Phosphatase 66 (38-126) U/L Serum Total Protein 6.2 L (6.3-8.2) g/dL Albumin 3.4 L (3.5-5.0) g/dL Assessment/Plan (1) Pneumonia Current Visit: Yes Status: Acute Qualifiers: Assessment & Plan: clinically improved, continue rocephin/zithromax. will plan to attempt to wean oxygen today. possibly home tomorrow or Sunday pending nephrology consult Code(s): J18.9 - PNEUMONIA, UNSPECIFIED ORGANISM (2) COPD exacerbation Current Visit: Yes Status: Acute Code(s): J44.1 - CHRONIC OBSTRUCTIVE PULMONARY DISEASE W (ACUTE) EXACERBATION (3) Hypokalemia Current Visit: Yes Status: Acute Assessment & Plan: K replaced, etiology uncertain, she was receiving normal saline at 50mL/hr which I stopped this morning. Dr Winchester has seen her in the past and was consulted, pending his recommendation Code(s): E87.6 - HYPOKALEMIA
[2023-01-15] MEDS: ROCEPHIN 1 Gm-D5w 50 ml Bag** 1 G/50 ML IVPB IV SCH (08:54)
[2023-01-15] MEDS: Effexor XR 75 MG PO SCH (08:57)
[2023-01-15] MEDS: Protonix 40MG Tablet PO SCH ×2 (08:58→20:49)
[2023-01-15] MEDS: ECOTRIN 81 MG PO SCH (08:58)
[2023-01-15] MEDS: Zithromax 250 MG TABLET PO SCH (08:58)
[2023-01-15] MEDS: Zestril 20 MG PO SCH ×2 (08:59→20:49)
[2023-01-15] MEDS: NORVASC 5 MG PO SCH ×2 (08:59→20:49)
[2023-01-15] MEDS: ENOXAPARIN SODIUM SQ SCH (08:59)
[2023-01-15] MEDS: solu-MEDROL 40 MG, Sterile H2O 10 ml 1 ML IV SCH ×4 (09:00→20:52)
[2023-01-15] MEDS: Toprol-Xl 25MG Tablets PO SCH ×2 (09:00→20:50)
[2023-01-15] MEDS ORDERED: Levofloxacin 500 MG Tablet PO SCH (10:00)
[2023-01-15 10:06] LABS: Slide Review YES
[2023-01-15] MEDS: MAG-OX 400 PO SCH (18:19)
[2023-01-15] MEDS: Klor Con PO SCH (20:49)
[2023-01-15] MEDS: xanAX 0.5 MG PO PRN (20:50)
[2023-01-16] MEDS: Sodium Chloride 3 ML UD NEBULES IH SCH ×2 (00:23→06:50)
[2023-01-16] MEDS: Xopenex 1.25 MG/0.5 ML UD NEBULE IH SCH ×3 (00:23→14:12)
[2023-01-16 05:17] LABS: Hematocrit 37.1 % (35-47); Hemoglobin 12.6 g/dL (12.0-16.0); Mean Cell Volume 91.6 fL (78-100); Mean Corpuscular Hemoglobin 31.1 pg (26-32); Mean Platelet Volume 9.1 fL (7.5-11.0); Platelet Count 319 x10^3/uL (150-450); Red Blood Count 4.05 x10^6/uL (4.1-5.4); Red Cell Distribution Width 14.7 % (11.5-14.0); White Blood Count 13.4 x10^3/uL (4.0-10.5)
[2023-01-16 06:16] LABS: ANION GAP 8.2 MEQ/L (5-15); BLOOD UREA NITROGEN 23 mg/dL (7-17); CHLORIDE 92 mmol/L (98-107); Calcium 8.4 mg/dL (8.4-10.2); Carbon Dioxide 36 mmol/L (22-30); EST GLOMERULAR FILTRATION RATE > 60.0 ML/MIN; Glucose 77 mg/dL (74-106); Potassium 3.7 mmol/L (3.5-5.1); SODIUM 133 mmol/L (137-145)
[2023-01-16 07:06] LABS: ANISOCYTOSIS 1+; ATYPICAL LYMPHS 1 %; Lymphocytes 28 % (24-44); Monocyte 4 % (0.0-12.0); Neutrophils 67 % (36.0-66.0); Platelet Estimate NORMAL (NORMAL); Total Cells Counted 100
--- NOTE | 2023-01-16 08:28 | PCM.NOTE ---
Date and Time: 01/16/23826 Subjective Assessment: breathing continues to improve, patient is currently on room air. c/o pain and burning in her upper stomach, has had frequent stools also, nervous because she has had c diff in the past Objective Exam General Appearance: no apparent distress Neurologic Exam: alert, oriented x 3 Respiratory Exam: prolonged expirations, rhonchi Cardiovascular Exam: regular rate/rhythm, normal heart sounds Gastrointestinal/Abdomen Exam: soft, No tenderness, No mass Extremity Exam: normal inspection, normal range of motion OBJECTIVE DATA Vital Signs: Vital Signs - 24 hr Temp Pulse Resp BP Pulse Ox 01/16/23 07:23 98.3 F 79 16 125/67 94 L 01/16/23 06:55 79 20 94 L 01/16/23 04:00 96.8 F 67 16 127/65 91 L 01/16/23 00:23 82 18 96 01/16/23 00:00 97.5 F 80 16 132/57 87 L 01/15/23 19:37 96.9 F 76 16 171/74 91 L 01/15/23 18:43 82 20 93 L 01/15/23 16:00 98.0 F 88 16 146/74 93 L 01/15/23 13:10 79 18 97 01/15/23 11:00 98.2 F 80 15 156/74 95 Pain Assessment - Last Documented Pain Intensity 6 Intake and Output: Intake & Output 01/13/23 01/14/23 01/15/23 01/16/23 11:59 11:59 11:59 11:59 Intake Total 2580 2440 1938 720 Output Total 800 2700 1800 500 Balance 1780 -260 138 220 Weight 74.2 kg Lab Results: Lab Results-Last 24 Hours 01/15/23 01/15/23 01/16/23 Range/Units 05:12 22:10 04:00 WBC 13.4 H (4.0-10.5) x10^3/uL RBC 4.05 L (4.1-5.4) x10^6/uL Hgb 12.6 (12.0-16.0) g/dL Hct 37.1 (35-47) % MCV 91.6 (78-100) fL MCH 31.1 (26-32) pg MCHC 34.0 (32-36) g/dL RDW 14.7 H (11.5-14.0) % Plt Count 319 (150-450) x10^3/uL MPV 9.1 (7.5-11.0) fL Segmented Neutrophils 67 H (36.0-66.0) % Lymphocytes (Manual) 28 (24-44) % Monocytes (Manual) 4 (0.0-12.0) % Atypical Lymphocytes 1 % Platelet Estimate NORMAL (NORMAL) RBC Morphology ABNORMAL Anisocytosis 1+ Sodium (137-145) mmol/L Potassium (3.5-5.1) mmol/L Chloride (98-107) mmol/L Carbon Dioxide (22-30) mmol/L Anion Gap (5-15) MEQ/L BUN (7-17) mg/dL Creatinine (0.52-1.04) mg/dL Estimated GFR ML/MIN Glucose (74-106) mg/dL Calcium (8.4-10.2) mg/dL Magnesium (1.6-2.3) mg/dL Urine Potassium 15.6 mmol/L Slides for Path Review YES 01/16/23 Range/Units 05:24 WBC (4.0-10.5) x10^3/uL RBC (4.1-5.4) x10^6/uL Hgb (12.0-16.0) g/dL Hct (35-47) % MCV (78-100) fL MCH (26-32) pg MCHC (32-36) g/dL RDW (11.5-14.0) % Plt Count (150-450) x10^3/uL MPV (7.5-11.0) fL Segmented Neutrophils (36.0-66.0) % Lymphocytes (Manual) (24-44) % Monocytes (Manual) (0.0-12.0) % Atypical Lymphocytes % Platelet Estimate (NORMAL) RBC Morphology Anisocytosis Sodium 133 L (137-145) mmol/L Potassium 3.7 (3.5-5.1) mmol/L Chloride 92 L (98-107) mmol/L Carbon Dioxide 36 H (22-30) mmol/L Anion Gap 8.2 (5-15) MEQ/L BUN 23 H (7-17) mg/dL Creatinine 0.60 (0.52-1.04) mg/dL Estimated GFR > 60.0 ML/MIN Glucose 77 (74-106) mg/dL Calcium 8.4 (8.4-10.2) mg/dL Magnesium 2.0 (1.6-2.3) mg/dL Urine Potassium mmol/L Slides for Path Review Multi-Disciplinary Progress Notes: Multi-Disciplinary Progress Notes 01/15/23 19:17 Respiratory Note by Xin Flower Ambulated patient on Room Air, SpO2 >/= 90% while walking. SpO2 93% on Room Air at rest. Initialized on 01/15/23 19:17 - END OF NOTE 01/15/23 10:30 Case Management Note by Yojana Mrach S/W PATIENT- SHE CONTINUES TO DENY ANY NEW NEEDS AT TIME OF DC. SHE PLANS TO RETURN HOME TO HER PLF AT TIME OF DC. SHE REPORTS SHE HAS FAMILY THAT CAN ASSIST HER IF NEEDED. WILL TRY TO WEAN FROM OXYGEN TODAY Initialized on 01/15/23 10:30 - END OF NOTE Assessment/Plan (1) Pneumonia Current Visit: Yes Status: Acute Qualifiers: Assessment & Plan: continue levaquin, check c diff due to stools and add lactobacillus. Code(s): J18.9 - PNEUMONIA, UNSPECIFIED ORGANISM (2) COPD exacerbation Current Visit: Yes Status: Acute Code(s): J44.1 - CHRONIC OBSTRUCTIVE PULMONARY DISEASE W (ACUTE) EXACERBATION (3) Hypokalemia Current Visit: Yes Status: Acute Code(s): E87.6 - HYPOKALEMIA
[2023-01-16] MEDS: solu-MEDROL 40 MG, Sterile H2O 10 ml 1 ML IV SCH ×4 (09:33→21:38)
[2023-01-16] MEDS: Effexor XR 75 MG PO SCH (09:34)
[2023-01-16] MEDS: ECOTRIN 81 MG PO SCH (09:34)
[2023-01-16] MEDS: Acidophilus TABLET PO SCH (09:34)
[2023-01-16] MEDS: PROTONIX 40 MG IV IV SCH (09:34)
[2023-01-16] MEDS: NORVASC 5 MG PO SCH ×2 (09:34→21:38)
[2023-01-16] MEDS: Zestril 20 MG PO SCH ×2 (09:34→21:38)
[2023-01-16] MEDS: Toprol-Xl 25MG Tablets PO SCH ×2 (09:35→21:37)
[2023-01-16] MEDS: MAG-OX 400 PO SCH (09:35)
[2023-01-16] MEDS: ENOXAPARIN SODIUM SQ SCH (09:35)
[2023-01-16] MEDS ORDERED: Levofloxacin 500 MG Tablet PO SCH (11:30)
[2023-01-16] MEDS ORDERED: Levofloxacin 250MG Tablet PO SCH (11:30)
[2023-01-16] MEDS: Pepcid 20 MG PO SCH ×2 (12:35→21:38)
--- NOTE | 2023-01-16 13:53 | CONS ---
CONSULT DATE: 01/16/2023 REASON FOR CONSULT: Persistent hypokalemia. I thank Dr. Cliff Quintanilla for the kind referral. HISTORY: Amie Espino is a very pleasant 77-year-old lady who was admitted to the hospital with generalized weakness, was diagnosed with pneumonia. She has history of cough, fever, shortness of breath. She was noted to be consistently hypokalemic. Potassium had been around 2.8 milliequivalents/liter. She has long standing history of tobacco use, has smoked for 33 years. She denies any kidney related issues. Her creatinine was normal. On questioning she does mention that she had diarrhea a few weeks ago. Subsequently she was not eating well. She was taking her Lasix. She was not taking any potassium supplementation at home. No history of any uncontrolled or hypertensive emergency events. She has not gained any weight in the recent past. Denies any known arrhythmias. Denies any prior history of low potassium. She was on lisinopril as well. REVIEW OF SYSTEMS: Basically positive for difficulty in breathing, worsening dyspnea, cough, fever, hypoxemic, poor appetite, diarrhea a few weeks ago while on diuretic. All systems were reviewed in detail and pertinent mentioned here and in history of present illness and the rest were negative. PAST MEDICAL HISTORY: Hypertension, chronic obstructive pulmonary disease, gastroesophageal reflux disease, history of diverticulitis, anxiety, depression, panic disorder. PAST SURGICAL HISTORY: Orthopedic surgery. section. Hysterectomy. Right knee replacement. Back surgery. Rotator cuff surgery. MEDICATIONS: Home medications reviewed included: Lasix 40 mg daily, lisinopril 20 mg daily, omeprazole 40 mg daily, amoxicillin 1,000 mg daily, doxycycline amlodipine 10 mg daily, metoprolol 100 mg b.i.d., venlafaxine 75 mg, aspirin 81 mg, fluticasone. ALLERGIES: NKDA. FAMILY HISTORY: No history of renal problems in the family. PHYSICAL EXAMINATION: Vital signs reviewed. HEENT: Normocephalic, atraumatic, slightly pale conjunctivae. NECK: Supple. CHEST: Occasional sporadic rhonchi, decreased posterior breath sounds. CVS: S1, S2 normal. ABDOMEN: Soft, nontender. No organomegaly. EXTREMITIES: No cyanosis, clubbing or edema. SKIN: No skin rash. NEUROLOGIC: Alert, awake, oriented x3. LAB DATA AND TESTS: Labs were reviewed. X-rays were reviewed. Potassium last level was 4 milliequivalents/liter, magnesium 1.9. ASSESSMENT: 1) Hypokalemia. Etiology of hypokalemia appears to be secondary to poor p.o. intake with concomitant use of Lasix and history of diarrhea a couple of weeks ago. The patient was not on any potassium supplementation, persistently low potassium can further lead to potassium losing condition/nephritis. In these scenarios potassium needs to be replaced very aggressively, now the potassium levels are normal. I would recommend to hold further Lasix at this time. Also the patient is on high dose omeprazole which can lead to low magnesium levels which can further contribute to low potassium. Continue to monitor potassium levels. Continue potassium 20 daily along with lisinopril 20 mg b.i.d. If the potassium levels go down tomorrow, we can increase the daily dosing of potassium. In the meantime we will do transtubular potassium gradient and urine potassium losses. We will do a.m. cortisol levels as well. 2) Hypomagnesemia. It could have been because of high dose omeprazole. Magnesium 1.9 maintain magnesium 2 and above, start magnesium oxide 400 mg daily. 3) Hypertension. She was hypotensive initially. Discontinue IV fluids. Continue lisinopril 20 mg b.i.d. 4) Pneumonia. Continue am amoxicillin from renal perspective, continue on oxygen as needed. 5) Anxiety disorder. Okay to continue alprazolam and venlafaxine from my perspective. All questions answered.
[2023-01-16] MEDS ORDERED: Xopenex 1.25 MG/0.5 ML UD NEBULE IH PRN (16:12)
[2023-01-16] MEDS: xanAX 0.5 MG PO PRN (21:37)
[2023-01-16] MEDS: Klor Con PO SCH (21:38)
[2023-01-17 04:49] LABS: Hematocrit 38.2 % (35-47); Hemoglobin 12.7 g/dL (12.0-16.0); Mean Cell Volume 92.5 fL (78-100); Mean Corpuscular Hemoglobin 30.8 pg (26-32); Mean Corpuscular Hgb Concent. 33.2 g/dL (32-36); Mean Platelet Volume 8.8 fL (7.5-11.0); Platelet Count 338 x10^3/uL (150-450); Red Blood Count 4.13 x10^6/uL (4.1-5.4); Red Cell Distribution Width 14.6 % (11.5-14.0); White Blood Count 12.4 x10^3/uL (4.0-10.5)
[2023-01-17 05:17] LABS: ALBUMIN 3.5 g/dL (3.5-5.0); ALKALINE PHOSPHATASE 62 U/L (38-126); ANION GAP 9.8 MEQ/L (5-15); BLOOD UREA NITROGEN 19 mg/dL (7-17); CHLORIDE 93 mmol/L (98-107); Calcium 8.7 mg/dL (8.4-10.2); Carbon Dioxide 33 mmol/L (22-30); Creatinine 1 0.59 mg/dL (0.52-1.04); EST GLOMERULAR FILTRATION RATE > 60.0 ML/MIN; Glucose 141 mg/dL (74-106); Potassium 4.2 mmol/L (3.5-5.1); SGOT/AST 19 U/L (14-36); SGPT/ALT 24 U/L (0-35); SODIUM 132 mmol/L (137-145); Total Protein 6.2 g/dL (6.3-8.2)
[2023-01-17 06:52] VITALS: BP 154/78
[2023-01-17 07:09] LABS: Lymphocytes 5 % (24-44); Monocyte 2 % (0.0-12.0); Neutrophils 93 % (36.0-66.0); Platelet Estimate NORMAL (NORMAL); Total Cells Counted 100
[2023-01-17 08:38] VITALS: PULSE 76; O2SAT 90
[2023-01-17] MEDS: MAG-OX 400 PO SCH (09:06)
[2023-01-17] MEDS: Zestril 20 MG PO SCH (09:06)
[2023-01-17] MEDS: Acidophilus TABLET PO SCH (09:06)
[2023-01-17] MEDS: ECOTRIN 81 MG PO SCH (09:06)
[2023-01-17] MEDS: Pepcid 20 MG PO SCH (09:06)
[2023-01-17] MEDS: NORVASC 5 MG PO SCH (09:06)
[2023-01-17] MEDS: Toprol-Xl 25MG Tablets PO SCH (09:06)
[2023-01-17] MEDS: Effexor XR 75 MG PO SCH (09:06)
[2023-01-17] MEDS: ENOXAPARIN SODIUM SQ SCH (09:07)
[2023-01-17] MEDS: solu-MEDROL 40 MG, Sterile H2O 10 ml 1 ML IV SCH ×2 (09:07)
[2023-01-17] MEDS: PROTONIX 40 MG IV IV SCH (09:07)
--- NOTE | 2023-01-17 09:13 | PCM.DS ---
Discharge Summary Date of Admission: 01/10/23 12:08 Admitting Physician: DANITZA BIRD Consults: Consults on Case 01/14/23 09:45 Consult Nephrology ROUTINE Primary Care Provider: BRIANNA GIBBONS Allergies Allergies No Known Drug Allergies Allergy (Verified 08/02/22 15:29) Hospital Summary - Hospital Course Hospital Course: patient admitted with pneumonia, copd exacerbation and hypoxia. improved clinically, overnight pulse-ox confirms need for night oxygen which will be ordered on discharge. - Vitals & Intake/Output Vital Signs: Vital Signs Temperature 97.1 F 01/17/23 06:52 Pulse Rate 76 01/17/23 08:35 Respiratory Rate 18 01/17/23 08:35 Blood Pressure 154/78 01/17/23 06:52 O2 Sat by Pulse Oximetry 90 L 01/17/23 08:35 Intake & Output: Intake & Output 01/14/23 01/15/23 01/16/23 01/17/23 11:59 11:59 11:59 11:59 Intake Total 2440 1938 1200 1920 Output Total 2700 1800 800 950 Balance -260 138 400 970 - Lab Result Diagrams: 01/17/23 04:51 01/17/23 04:51 Lab Results-Last 24 Hrs: Lab Results-Last 24 Hours 01/17/23 01/17/23 Range/Units 04:51 04:51 WBC 12.4 H (4.0-10.5) x10^3/uL RBC 4.13 (4.1-5.4) x10^6/uL Hgb 12.7 (12.0-16.0) g/dL Hct 38.2 (35-47) % MCV 92.5 (78-100) fL MCH 30.8 (26-32) pg MCHC 33.2 (32-36) g/dL RDW 14.6 H (11.5-14.0) % Plt Count 338 (150-450) x10^3/uL MPV 8.8 (7.5-11.0) fL Segmented Neutrophils 93 H (36.0-66.0) % Lymphocytes (Manual) 5 L (24-44) % Monocytes (Manual) 2 (0.0-12.0) % Platelet Estimate NORMAL (NORMAL) RBC Morphology NORMAL Sodium 132 L (137-145) mmol/L Potassium 4.2 (3.5-5.1) mmol/L Chloride 93 L (98-107) mmol/L Carbon Dioxide 33 H (22-30) mmol/L Anion Gap 9.8 (5-15) MEQ/L BUN 19 H (7-17) mg/dL Creatinine 0.59 (0.52-1.04) mg/dL Estimated GFR > 60.0 ML/MIN Glucose 141 H (74-106) mg/dL Calcium 8.7 (8.4-10.2) mg/dL Total Bilirubin 0.40 (0.2-1.3) mg/dL AST 19 (14-36) U/L ALT 24 (0-35) U/L Alkaline Phosphatase 62 (38-126) U/L Serum Total Protein 6.2 L (6.3-8.2) g/dL Albumin 3.5 (3.5-5.0) g/dL - Procedures and Test Procedures and Tests throughout Hospitalization: Therapy Orders & Screens 01/10/23 10:18 Respiratory Therapy Assessment DAILY Comment: 01/10/23 13:30 Oxygen NASAL CANNULA 3 lpm Comment: Diagnosis: Pneumonia 01/16/23 10:05 PT Eval & Treat (MD Order) ONCE Reason for Eval:: WEAKNESS Diagnosis: Pneumonia Discharge Exam General Appearance: no apparent distress Neurologic Exam: alert, oriented x 3 Respiratory Exam: lungs clear, prolonged expirations Cardiovascular Exam: regular rate/rhythm, normal heart sounds Gastrointestinal/Abdomen Exam: soft, No tenderness, No mass Extremity Exam: normal inspection, normal range of motion Skin Exam: normal color, warm, dry Final Diagnosis/Problem List - Final Discharge Diagnosis/Problem (1) Pneumonia Current Visit: Yes Status: Acute Assessment & Plan: home on po levaquin x 3 more days Code(s): J18.9 - PNEUMONIA, UNSPECIFIED ORGANISM (2) COPD exacerbation Current Visit: Yes Status: Acute Assessment & Plan: patient with adverse reaction to albuterol nebulizer, tolerating xopenex so levalbuterol is medically necessary at this time. Code(s): J44.1 - CHRONIC OBSTRUCTIVE PULMONARY DISEASE W (ACUTE) EXACERBATION (3) Hypokalemia Current Visit: Yes Status: Acute Code(s): E87.6 - HYPOKALEMIA (4) COPD (chronic obstructive pulmonary disease) Current Visit: Yes Status: Acute Assessment & Plan: qualified for night oxygen, see overnight pulse-ox results. - Discharge Disposition: Home, Self-Care Condition: Stable Prescriptions: New Levalbuterol Tartrate [Levalbuterol Tartrate Hfa] 1 puff IH Q6H PRN PRN #1 unit PRN Reason: Shortness Of Breath levoFLOXacin 250 mg PO DAILY #3 tablet Potassium Chloride 10 meq PO DAILY #30 tablet Continue Metoprolol Succinate 100 mg [Toprol Xl 100 MG] 25 mg PO BID Venlafaxine HCl ER 75 mg [Effexor XR 75 MG] 150 mg PO DAILY Amlodipine Besylate 10 mg [Norvasc 10 MG] 5 mg PO BID ALPRAZolam 0.5 MG [xanAX 0.5 MG] 0.5 mg PO TID PRN PRN PRN Reason: Anxiety Aspirin 81 mg PO DAILY Fluticasone Propionate [Flonase NASAL] 1 spray NS DAILY PRN PRN PRN Reason: Allergies Lisinopril 10 mg [Zestril 10 MG] 20 mg PO BID Omeprazole 40 mg PO BID Discontinued Doxycycline Hyclate 100 mg [Vibramycin 100 MG] 100 mg PO BID Amoxicillin 1,000 mg PO DAILY Outpatient Orders: Physical Therapy Eval & Treat Facility: [facility], Location: PHYSICAL THERAPY Follow up with: BENTLEY GRIFFIN [CONSULTING PHYSICIAN] - 1 Week BRIANNA GIBBONS NP [Primary Care Provider] -
[2023-01-18] MEDS ORDERED: Levofloxacin 250MG Tablet PO SCH (10:00)
[2023-01-18] MEDS ORDERED: Levofloxacin 500 MG Tablet PO SCH (10:00)
== END 2023-01-17 11:59 | disposition home or self-care (01) | DRG 194 ==
LOC: ED 09:57 → UNDOADMIN 12:08 → MED SURG 12:08 → UNDODISIN 01-17 11:59
PROVIDERS: ADMIT Family Medicine; ATTEND Family Medicine
DX: J18.9 Pneumonia, unspecified organism (principal); J44.1 Chronic obstructive pulmonary disease with (acute) exacerbation; E83.42 Hypomagnesemia; E87.6 Hypokalemia; I10 Essential (primary) hypertension; F41.9 Anxiety disorder, unspecified; Z79.899 Other long term (current) drug therapy; Z20.828 Contact with and (suspected) exposure to other viral communicable diseases; Z87.891 Personal history of nicotine dependence
CPT/HCPCS: 0241U; 36415; 71045; 80048; 80053; 82533; 83735; 83930; 83935; 84132; 84133; 84145; 84484; 85025; 85027; 87428; 93005; 93041; 94640; 94760; 94762; 96360; 96365; 96367; 96374; 96375; 97161; 99213; 99285; J0456; J0696; J1650; J2405; J2920; J2930; J3480; J7609; A9270-GY

== ENCOUNTER 2024-04-02 08:37 | Day surgery (SDC) | payer MEDICARE ==
[2024-04-02] MEDS ORDERED: Sodium Chloride 0.9(Preservative Free) 10 ML IJ ONE (08:38)
[2024-04-02] MEDS ORDERED: Decadron 4 MG INJ IV ONE (08:38)
[2024-04-02] MEDS ORDERED: DIPRIVAN 200 MG/20 ML IV ONE (10:34)
--- NOTE | 2024-04-02 12:33 | XRAY ---
Indication: Left L4-S1 transforaminal ROSIBEL. Intraoperative fluoroscopy provided for 29 seconds. 3 digital spot image submitted for interpretation demonstrates posterior needle tips projecting over the expected left L4 and L5 nerve roots. Small amount of contrast injected for needle tip placement. Correlate with interoperative findings/report.
--- NOTE | 2024-04-02 12:37 | XRAY ---
29 seconds of fluoroscopy was used in surgery for a left L4-S1 transforaminal ROSIBEL.
[2024-04-02] MEDS ORDERED: Lactated Ringers 1,000 ML IV ONE (13:11)
== END 2024-04-02 10:59 | disposition home or self-care (01) ==
LOC: SDC-PAIN 08:37
PROVIDERS: ATTEND Psychiatry & Neurology Pain Medicine
DX: M54.16 Radiculopathy, lumbar region (principal)
CPT/HCPCS: 64483; 64484; 72100; 77003; J1100; J2704; Q9966

== ENCOUNTER 2024-04-23 12:26 | Day surgery (SDC) | payer MEDICARE ==
[2024-04-23] MEDS ORDERED: LIDOCAINE HCL 2% 100 MG/5 ML IJ ONE (12:27)
[2024-04-23] MEDS ORDERED: Depo-Medrol 40 MG/ML IM ONE (12:27)
[2024-04-23] MEDS ORDERED: DIPRIVAN 200 MG/20 ML IV ONE (14:19)
[2024-04-23] MEDS ORDERED: Lactated Ringers 1,000 ML IV ONE (14:30)
--- NOTE | 2024-04-23 15:25 | XRAY ---
Indication: Bilateral L4-S1 MBB. Intraoperative fluoroscopy provided for 6 seconds. Single digital spot images submitted for interpretation demonstrates posterior needle tip projecting over the expected left and right L4-S1 nerve roots. Correlate with intraoperative findings/report.
--- NOTE | 2024-04-23 15:35 | XRAY ---
6 seconds of fluoroscopy was used in surgery for a bilateral L4-S1 MBB.
== END 2024-04-23 14:40 | disposition home or self-care (01) ==
LOC: SDC-PAIN 12:26
PROVIDERS: ATTEND Psychiatry & Neurology Pain Medicine
DX: M47.816 Spondylosis without myelopathy or radiculopathy, lumbar region (principal)
CPT/HCPCS: 64493; 64494; 72020; 77002; J1010; J2704

== ENCOUNTER 2024-10-02 08:18 | Day surgery (SDC) | payer MEDICARE ==
[2024-10-02] MEDS ORDERED: BUPIVACAINE 0.5% VIAL IJ ONE (08:19)
[2024-10-02] MEDS ORDERED: Depo-Medrol 40 MG/ML IM ONE (08:19)
[2024-10-02] MEDS ORDERED: DIPRIVAN 200 MG/20 ML IV ONE (09:48)
--- NOTE | 2024-10-02 11:19 | XRAY ---
Indication: Bilateral L4-S1 MBB. Intraoperative fluoroscopy provided for 9 seconds. Single digital spot image submitted for interpretation demonstrates posterior needle tips projecting over expected left and right L4-S1 nerve roots. Correlate with intraoperative findings/report.
--- NOTE | 2024-10-02 11:35 | XRAY ---
9 seconds of fluoroscopy was used in surgery for a bilateral L4-S1 MBB.
== END 2024-10-02 10:20 | disposition home or self-care (01) ==
LOC: SDC-PAIN 08:18
PROVIDERS: ATTEND Psychiatry & Neurology Pain Medicine
DX: M47.816 Spondylosis without myelopathy or radiculopathy, lumbar region (principal)
CPT/HCPCS: 64493; 64494; 72020; 77002; J2704

== ENCOUNTER 2024-10-30 13:32 | Day surgery (SDC) | payer MEDICARE ==
[2024-10-30] MEDS ORDERED: BUPIVACAINE 0.5% VIAL IJ ONE ×2 (13:33)
[2024-10-30] MEDS ORDERED: Depo-Medrol 40 MG/ML IM ONE ×2 (13:33)
[2024-10-30] MEDS ORDERED: LIDOCAINE HCL 1% AMPUL 5 ML IJ ONE ×2 (13:33)
[2024-10-30] MEDS ORDERED: DIPRIVAN 200 MG/20 ML IV ONE (15:20)
--- NOTE | 2024-10-30 16:50 | XRAY ---
Indication: Right L4-S1 RFA. Intraoperative fluoroscopy provided for 16 seconds. 3 digital spot image submitted for interpretation demonstrates posterior needle tips projecting over expected right L4-S1 nerve roots. Correlate with intraoperative findings/report.
--- NOTE | 2024-10-30 16:54 | XRAY ---
16 seconds of fluoroscopy was used in surgery for a right L4-S1 RFA.
== END 2024-10-30 15:31 | disposition home or self-care (01) ==
LOC: SDC-PAIN 13:32
PROVIDERS: ATTEND Psychiatry & Neurology Pain Medicine
DX: M47.816 Spondylosis without myelopathy or radiculopathy, lumbar region (principal)
CPT/HCPCS: 64635; 64636; 72100; 77002; 99100; J2704

== ENCOUNTER 2024-11-05 13:45 | Day surgery (SDC) | payer MEDICARE ==
[2024-11-05] MEDS ORDERED: Depo-Medrol 40 MG/ML IM ONE (13:46)
[2024-11-05] MEDS ORDERED: BUPIVACAINE 0.5% VIAL IJ ONE (13:46)
[2024-11-05] MEDS ORDERED: LIDOCAINE HCL 1% AMPUL 5 ML IJ ONE (13:46)
[2024-11-05] MEDS ORDERED: DIPRIVAN 200 MG/20 ML IV ONE (15:36)
--- NOTE | 2024-11-05 16:53 | XRAY ---
Indication: Left L4-S1 RFA. Intraoperative fluoroscopy provided for 23 seconds. 4 digital spot image submitted for interpretation demonstrates posterior needle tips projecting over the expected left L4-S1 nerve roots. Correlate with intraoperative findings/report.
--- NOTE | 2024-11-05 17:05 | XRAY ---
23 seconds of fluoroscopy was used in surgery for a left L4-S1 RFA.
== END 2024-11-05 16:18 | disposition home or self-care (01) ==
LOC: SDC-PAIN 13:45
PROVIDERS: ATTEND Psychiatry & Neurology Pain Medicine
DX: M47.817 Spondylosis without myelopathy or radiculopathy, lumbosacral region (principal)
CPT/HCPCS: 72100; 77002; 99100; J2704

== ENCOUNTER 2025-10-14 05:52 | Day surgery (SDC) | payer MEDICARE ==
[2025-10-14] MEDS ORDERED: Lactated Ringers 1,000 ML IV ONE (06:12)
[2025-10-14] MEDS ORDERED: CEFAZOLIN SODIUM ONE (06:12)
[2025-10-14 06:48] VITALS: RESP 16
[2025-10-14] MEDS: Lactated Ringers 1,000 ML IV SCH (07:03)
[2025-10-14] MEDS: TRANEXAMIC 1,000 MG/100ML-NACL 1,000 MG/100 ML PIGGYBACK IV ONE (07:03)
[2025-10-14] MEDS ORDERED: EXPAREL 133 MG/10 ML VIAL IJ ONE (07:51)
[2025-10-14] MEDS ORDERED: Marcaine Mpf 0.5% Vial 30 Ml ONE (07:51)
[2025-10-14] MEDS ORDERED: OFIRMEV 100 ML IV ONE (07:51)
[2025-10-14] MEDS ORDERED: PHENYLEPHRINE HCL ONE (07:54)
[2025-10-14] MEDS ORDERED: propofoL IV ONE (07:57)
[2025-10-14] MEDS ORDERED: Versed 2 MG/2 ML Injection ONE (08:00)
[2025-10-14] MEDS ORDERED: SUBLIMAZE 100 MCG/2 ML ONE (08:02)
[2025-10-14] MEDS ORDERED: PHENYLEPHRINE HCL 10 MG in Dextrose 5%/Water IV Soln. 250 ML 249 ML IV PRN (08:59)
[2025-10-14] MEDS ORDERED: Zofran 4 MG/2 ML VIAL ONE (10:14)
--- NOTE | 2025-10-14 11:39 | XRAY ---
Indication: Postop exam. Comparison: July 14, 2025 AP/cross-table lateral left knee demonstrates interval total knee arthroplasty with postoperative soft tissue swelling/emphysema and effusion. There remains osteopenia and minimal scattered vascular calcifications. No other abnormalities.
[2025-10-14] MEDS ORDERED: NORCO 7.5/325 MG TAB PO PRN (12:40)
[2025-10-14] MEDS ORDERED: NORCO 10-325 MG PO PRN (12:40)
[2025-10-14] MEDS: ULTRAM 50 MG PO PRN (12:43)
[2025-10-14] MEDS ORDERED: Cyanocobalamin B-12 1000 MCG/ML SQ SCH (13:00)
[2025-10-14] MEDS: Zestril 20 MG PO SCH (13:30)
[2025-10-14] MEDS: Protonix 40MG Tablet PO SCH (13:30)
[2025-10-14] MEDS: Klor Con PO SCH (13:30)
[2025-10-14] MEDS: Ecotrin 325 MG PO SCH (13:32)
[2025-10-14] MEDS: Lasix 40 MG PO SCH (13:33)
[2025-10-14] MEDS: FEOSOL 325 MG PO SCH (13:34)
[2025-10-14] MEDS: ZOCOR 20MG PO SCH (13:39)
[2025-10-14] MEDS: Hydromorphone 1 mg/ml Injection IV PRN (14:07)
[2025-10-14] MEDS: PRISTIQ ER PO SCH (14:13)
[2025-10-14] MEDS: Toprol-Xl 25MG Tablets PO SCH (14:13)
[2025-10-14] MEDS: NORCO 10-325 MG PO PRN (15:24)
[2025-10-14] MEDS: Lidoderm Patch 5% TOP SCH (17:15)
[2025-10-14] MEDS ORDERED: REMOVE PATCH REMINDER TOP SCH (17:30)
[2025-10-14] MEDS: NORCO 7.5/325 MG TAB PO PRN (19:36)
[2025-10-14] MEDS: xanAX 0.5 MG PO PRN (22:01)
[2025-10-15 07:36] VITALS: BP 139/65; PULSE 90; TEMP 97.8; O2SAT 94
--- NOTE | 2025-10-15 09:39 | OP ---
SURGERY DATE/TIME: 10/14/2025 [id number] PREOPERATIVE DIAGNOSIS: Severe advanced osteoarthritis, left knee. POSTOPERATIVE DIAGNOSIS: Severe advanced osteoarthritis, left knee. PROCEDURE: Left total knee replacement arthroplasty utilizing the [employer] instrumentation, a size 9 femoral component press-fit, a size D tibial component cemented with an 11 mm polyethylene bearing tray and an 8 x 25 single peg poly patella cemented. SURGEON: Ben Shin II, DO ANESTHESIA: Spinal with a block for postoperative pain control. DESCRIPTION OF PROCEDURE AND FINDINGS: The patient was identified and informed consent was obtained. The patient was taken to the operative suite where the spinal anesthetic and block were administered. Once an appropriate level of anesthesia had been obtained, a tourniquet was then placed high on the left thigh, the left lower extremity was then prepped and draped in usual sterile fashion. A standard time-out was taken. Foot was then placed into the boot for the Greco knee philip. Leg was exsanguinated and the tourniquet was elevated to 350 mmHg. Once this had been accomplished, a standard midline incision was accomplished with the knee in a flexed position. Skin was incised. Dissection was carried out through the subcutaneous tissue. At this point, a standard medial parapatellar incision was accomplished with a fresh #10 knife blade. Upon entering the joint, there was a copious amount of grade 1 synovial fluid. Also noted were significant degenerative changes with hard eburnated bone along the entire weightbearing surface of the lateral femoral condyle and tibial plateau, significant osteophyte formation, and degenerative changes noted in the medial compartment as well. Also noted were degenerative changes in the patellofemoral joint. At this point, a portion of the infrapatellar fat pad, portions of the medial and lateral menisci and anterior cruciate ligament were excised for visualization. Z retractors were positioned medially and laterally, and with the knee in a flexed position, the femoral aiming guide was placed and held with its appropriate pins. Following this, the distal femoral cutting block was applied and the distal femoral cut was accomplished. The pins were removed and the 4-in-1 cutting block was then applied and held with its pins. The anterior, posterior, and chamfer cuts were then made and wafers of bone were removed. Once this had been accomplished, out attention was then turned to the tibial side where the tibial aiming guide was placed after removing any remaining fragments of menisci and held with its appropriate pins. The proximal wafer of tibia was resected and the trial tibial component was applied. It was determined that a D was the appropriate size. It was held with its pins in the proper rotation. The trial femoral component was then impacted into position. Trial reduction showed that the 11 mm polyethylene was the appropriate size to give good soft tissue balance in full extension and through flexion greater than 135 degrees. Following this, the patellar button was them milled with the milling device, restoring the preresection height. Tracking was noted to be excellent and all the trial instrumentation was removed. The joint was then copiously irrigated with pulse weed science research technician and dried. Cement was vacuum mixed and pressed into the interstices of the bone. The tibial component was cemented into position. Excess cement was removed during the curing process. The femoral component was press-fit into position, and the patellar button was cemented into position and held with its clamp. Once excess cement had been removed and the cement had fully cured, again trial reduction showed that the 11 polyethylene was the appropriate size. The trial was removed, the joint was copiously irrigated, and then the permanent component was inserted and snapped into position. The wound was irrigated 1 more time and closed with #2 Stratafix, 2-0 Monocryl, and 3-0 Stratafix subcuticular augmented with Dermabond and an Aquacel dressing was then placed. The patient was transferred to the cart and taken to the recovery room in satisfactory condition having tolerated the procedure well.
== END 2025-10-15 10:48 | disposition home or self-care (01) ==
LOC: SDC 05:52 → MED SURG 11:15 → SDC 10-15 10:48
PROVIDERS: ATTEND Orthopaedic Surgery
DX: M17.12 Unilateral primary osteoarthritis, left knee (principal); M25.562 Pain in left knee